=== PATIENT | female | born 1960 | race Two or more races ===

== ENCOUNTER 2019-11-15 07:40 | Outpatient (REF) | payer OTHER, SELFPAY ==
[2019-11-15 08:34] LABS: MANUAL DIFF FLAG NO
[2019-11-15 08:41] LABS: Basophils Percent Auto 0.5 % (0-2); Eosinophils Absolute Auto 0.3 X10*3/uL (0.0-0.4); Eosinophils Percent Auto 5.8 % (0-4); Hematocrit 43.5 % (37-47); Hemoglobin 13.8 g/dl (12.0-16.0); Imm Gran Abs Auto 0.02 X10*3/uL (0.00-0.03); Imm Gran Pct Auto 0.3 % (0.0-0.4); Lymphocytes Absolute Auto 1.7 X10*3/uL (1.2-4.9); Lymphocytes Percent Auto 28.8 % (20-40); Mean Corpuscular HGB Conc 31.7 g/dl (31.0-35.0); Mean Corpuscular Hemoglobin 28.1 pg (27.0-33.0); Mean Corpuscular Volume 88.6 fL (80-98); Mean Platelet Volume 10.6 fL (9.4-12.3); Monocytes Absolute Auto 0.5 X10*3/uL (0.1-1.2); Monocytes Percent Auto 8.9 % (2-11); Neutrophils Absolute Auto 3.2 X10*3/uL (2.0-8.3); Neutrophils Percent Auto 55.7 % (45-73); Platelet Count 254 X10*3/uL (160-400); Red Blood Count 4.91 X10*6/uL (4.20-5.50); Red Cell Distribution Width 14.6 % (11.0-16.0); White Blood Count 5.8 X10*3/uL (4.8-10.8)
[2019-11-15 09:17] LABS: Alanine Aminotransferase 21 U/L (0-31); Alkaline Phosphatase 103 U/L (39-117); Aspartate Amino Transferase 22 U/L (5-31); Bilirubin Total 0.5 mg/dL (0.0-1.0); Blood Urea Nitrogen 11 mg/dL (9-16); Calcium 9.1 mg/dL (8.4-10.2); Cholesterol 215 mg/dL; Estimated Glomerular Filt Rate 58; Glucose Fasting 85 mg/dL (60-99); HDL Cholesterol 70 mg/dL; LDL Cholesterol Calculated 122 mg/dl; Total Protein 6.9 g/dL (6.5-8.0); Triglycerides 115 mg/dL
[2019-11-15 09:29] LABS: Anion Gap 11 (12-20); Carbon Dioxide 28 mmol/L (22-29); Chloride 106 mmol/L (96-108); Potassium 3.7 mmol/l (3.3-5.1); Sodium 141 mmol/L (135-145)
[2019-11-15 09:34] LABS: Vitamin D 25-OH Total 12.4 ng/mL (>30)
== END 2019-11-15 07:41 | disposition home or self-care (01) ==
LOC: HO.LAB 07:40
PROVIDERS: PCP Internal Medicine; Visit Provider Internal Medicine
DX: E55.9 Vitamin D deficiency, unspecified (principal); E78.9 Disorder of lipoprotein metabolism, unspecified; K21.9 Gastro-esophageal reflux disease without esophagitis; J45.20 Mild intermittent asthma, uncomplicated; E66.01 Morbid (severe) obesity due to excess calories; E03.8 Other specified hypothyroidism; M25.511 Pain in right shoulder
CPT/HCPCS: 36415; 80053; 80061; 82306; 84443; 85025

== ENCOUNTER 2020-01-08 13:03 | Outpatient (REF) | payer OTHER, SELFPAY ==
[2020-01-09 03:21] LABS: CT PCR NOT DETECTED (Not Detect.); NG PCR NOT DETECTED (Not Detect.)
[2020-01-09 08:52] LABS: BV Int Neg Control Negative (Negative); BV Int Pos Control Positive (Positive)
== END 2020-01-08 13:04 | disposition home or self-care (01) ==
LOC: HO.LNP 13:03
PROVIDERS: Visit Provider Obstetrics & Gynecology
DX: Z01.419 Encounter for gynecological examination (general) (routine) without abnormal findings (principal)
CPT/HCPCS: 87480; 87491; 87510; 87591; 87660

== ENCOUNTER 2020-02-04 15:00 | Outpatient (REF) | payer OTHER, SELFPAY ==
[2020-02-05 08:04] LABS: BV Int Neg Control Negative (Negative); BV Int Pos Control Positive (Positive)
== END 2020-02-04 15:01 | disposition home or self-care (01) ==
LOC: HO.LAB 15:00
PROVIDERS: PCP Internal Medicine; Visit Provider Obstetrics & Gynecology
DX: A59.9 Trichomoniasis, unspecified (principal)
CPT/HCPCS: 87480; 87510; 87660; 99212

== ENCOUNTER 2020-02-20 08:41 | Outpatient (REF) | payer OTHER, SELFPAY | END 2020-02-20 08:42 | disposition home or self-care (01) | LOC: HO.LAB 08:41 | PROVIDERS: PCP Internal Medicine; Visit Provider Internal Medicine | DX: Z20.828 Contact with and (suspected) exposure to other viral communicable diseases (principal) | CPT/HCPCS: 36415; C9803; U0003 ==

== ENCOUNTER 2020-03-12 14:13 | Emergency (ER) | payer OTHER, SELFPAY ==
[2020-03-12 14:55] VITALS: BP 120/69; PULSE 80; RESP 18; TEMP 36.7; O2SAT 96; BMI 35.8
--- NOTE | 2020-03-12 15:46 | ECG_ITS ---
Test Reason : SOB Blood Pressure : / mmHG Vent. Rate : 076 BPM Atrial Rate : 076 BPM P-R Int : 158 ms QRS Dur : 088 ms QT Int : 402 ms P-R-T Axes : 024 -01 010 degrees QTc Int : 452 ms Normal sinus rhythm with sinus arrhythmia Inferior infarct , age undetermined Abnormal ECG When compared with ECG of 23-AUG-2017 17:42, T wave amplitude has decreased in Lateral leads Referred By: Krish Quarles Electronically Signed By:Mario Sabillon
--- NOTE | 2020-03-12 15:46 | XR_ITS ---
EXAMINATION: XR CHEST CLINICAL INFORMATION: Chest wall pain COMPARISON: Chest radiographs 08/23/2017, 01/23/2017 TECHNIQUE: Portable upright AP view of the chest was obtained. FINDINGS: There is trace disc atelectasis right lateral base. Lungs otherwise clear. There is no pneumothorax, pleural reaction, airspace consolidation, or effusion. The heart is normal in size. The costophrenic sulci are clear. The hilar and mediastinal contours are normal. Again, there are degenerative changes thoracic spine. XR/XR chest 1V IMPRESSION: Disc atelectasis right base. No pneumothorax, airspace consolidation, or effusion.
[2020-03-12 16:22] LABS: INTERNATIONAL NORM RATIO 1.1 (0.9-1.1); Prothrombin Time 12.9 SEC (10.8-13.0)
[2020-03-12 16:24] LABS: Partial Thromboplastin Time 30.3 SEC (24.1-38.0)
[2020-03-12 16:28] LABS: Glucose Urine UA NEG (NEG); Leukocyte Esterase Urine NEG (NEG); Nitrite Urine NEG (NEG); PH 6.5 (5.0-8.0); Specific Gravity - Urine 1.025 (1.005-1.025); Urine Blood NEG (NEG); Urine Ketones NEG (NEG); Urine Protein TRACE MG/DL (NEG-TRACE)
[2020-03-12 16:29] LABS: Appearance Urine HAZY; Color Urine YELLOW
[2020-03-12 16:32] LABS: Hemoglobin 13.3 g/dl (12.0-16.0); Mean Corpuscular HGB Conc 31.7 g/dl (31.0-35.0); Mean Corpuscular Hemoglobin 27.7 pg (27.0-33.0); Mean Corpuscular Volume 87.5 fL (80-98); Mean Platelet Volume 10.4 fL (9.4-12.3); Platelet Count 303 X10*3/uL (160-400); Red Cell Distribution Width 13.3 % (11.0-16.0); White Blood Count 4.9 X10*3/uL (4.8-10.8)
[2020-03-12 16:41] LABS: Mucus Urine 2+ /LPF; RBC Urine 0 /HPF (0); Squamous Epithelial Cell Urine 2+ /LPF; WBC Urine 0 /HPF (0-4)
[2020-03-12 16:41] LABS: Alanine Aminotransferase 28 U/L (0-31); Albumin Level 4.1 g/dL (3.5-5.0); Alkaline Phosphatase 61 U/L (39-117); Anion Gap 13 (12-20); Aspartate Amino Transferase 28 U/L (5-31); Blood Urea Nitrogen 11 mg/dL (9-16); Calcium 9.1 mg/dL (8.4-10.2); Carbon Dioxide 29 mmol/L (22-29); Chloride 105 mmol/L (96-108); Creatinine Clr Calc Pharmacy 80.4; Estimated Glomerular Filt Rate > 60; Glucose Random 88 mg/dL (60-115); Lactate Dehydrogenase 295 U/L (122-220); Potassium 3.7 mmol/l (3.3-5.1); Sodium 143 mmol/L (135-145); Total Protein 7.5 g/dL (6.5-8.0)
[2020-03-12 16:59] LABS: Procalcitonin 0.02 ng/mL
[2020-03-12 17:02] LABS: Atypical Lymph Absolute Manual 0.1 x10*3/uL; Atypical Lymphs Percent Manual 2 % (0-6); Band Neutrophils Percent 1 % (3-5); Eosinophils Percent Manual 1 % (0-4); Lymphocytes Absolute Manual 1.1 X10*3/uL (0.6-4.8); Lymphocytes Percent Manual 23 % (20-40); Monocytes Absolute Manual 0.4 X10*3/uL (0.0-1.2); Monocytes Percent Manual 8 % (2-11); Myelocytes Percent 1 %; Neutrophils Absolute Manual 3.2 X10*3/uL (2.2-7.9); Neutrophils Percent Manual 64 % (45-73)
[2020-03-12 17:03] LABS: Ferritin 596 ng/mL (10-250)
[2020-03-12 17:05] LABS: Large Platelet PRESENT; Platelet Estimate NORMAL (NORMAL); Platelet Morphology Comment NOTED; RBC Morphology NORMAL
[2020-03-12 17:23] LABS: D Dimer 1786 NG/ML
--- NOTE | 2020-03-12 17:26 | ED.GENADULT ---
HPI - General Adult General Chief complaint: General Medical Stated complaint: covid symptoms Time Seen by Provider: 03/12/20 15:46 Source: patient Mode of arrival: ambulatory Limitations: no limitations History of Present Illness HPI narrative: States diagnosed with COVID-19 2 weeks ago at [facility] she had URI symptoms and myalgias that have improved and now has had cough for the past 5 days and associated chest pain and shortness of breath. Onset (ago): day(s) Radiation: non-radiation Pain Consistency: intermittent Exacerbating factors: other (Cough) Associated symptoms: chest pain and cough Treatments prior to arrival: none Related Data Home Medications Medication Instructions Recorded Confirmed albuterol sulfate 90 mcg/actuation 1 inh INHALATION QID 11/22/19 11/22/19 aerosol inhaler diclofenac potassium 50 mg tablet 50 mg PO TID PRN 01/08/20 divalproex 250 mg tablet,delayed mg PO 01/08/20 release galcanezumab-gnlm 120 mg/mL mg SUBCUT 01/08/20 subcutaneous pen injector Previous Rx's Medication Instructions Recorded fluticasone propionate 50 1 spray INTRANASAL DAILY 30 Days 12/20/19 mcg/actuation nasal #15.8 ml spray,suspension metronidazole 500 mg tablet 2,000 mg PO ONCE 1 Days #4 tab 01/13/20 metronidazole 500 mg tablet 500 mg PO BID 7 Days #14 tab 02/05/20 omeprazole 40 mg capsule,delayed 40 mg PO DAILY #90 cap 02/23/20 release albuterol sulfate 2 puff INHALATION Q4-6H PRN 7 Days 03/12/20 #8.5 g azithromycin [Zithromax Z-Ino] 250 mg PO DAILY 5 Days #6 tab 03/12/20 prednisone 40 mg PO DAILY 5 Days #10 tab 03/12/20 Allergies Allergy/AdvReac Type Severity Reaction Status Date / Time No Known Allergies Allergy Verified 02/04/20 15:15 [No Known Allergies*] Review of Systems Review of Systems: Constitutional: No Weight loss, No Fever, No Chills, No Night Sweats, No Fatigue, No Malaise ENT/Mouth: No Hearing loss, No Ear Pain, No Nasal Congestion, No Sinus Pain, No Hoarseness, No sore throat, No Rhinorrhea, No Swallowing Difficulty Eyes: No Eye Pain, No Swelling, No Redness, No Foreign Body, No Discharge, No Vision Changes Cardiovascular: + Chest Pain, No SOB, No Dyspnea on Exertion, No Orthopnea, No Edema, No Palpitations Respiratory: + Cough, No Sputum, No Wheezing, No Dyspnea Gastrointestinal: No Nausea, No Vomiting, No Diarrhea, No Constipation, No abdominal Pain Genitourinary: Negative Musculoskeletal: No joint pain, No Myalgias, No Joint Swelling Skin: No Skin Lesions, No rash Neuro: No Weakness, No Numbness, No Paresthesias, No Loss of Consciousness, No Dizziness, No Headache Psych:No Social Issues Heme/Lymph: No Bruising, No Bleeding,No Lymphadenopathy Endocrine: No Polyuria, No Polydipsia, No Temperature Intolerance Yes all other systems are reviewed and are negative [facility] Past Medical History Medical History Allergic rhinitis Asthma Chronic GERD Headache syndrome Hypothyroidism Lipid disorder Surgical History History of dilatation and curettage History of endometrial biopsy History of tubal ligation Family History Family History Father CVD (cardiovascular disease) Mother Lung cancer Brother Esophageal cancer Sister Throat cancer Social History Social History Alcohol intake: never Smoking Status: Unknown if ever smoked Smoked in Last 30 Days: No Use of substances other than those prescribed or required for medical reasons: No Advance Directives: No Advance Directives Information Provided: No Sexual orientation: Straight/Heterosexual Gender identity: female Physical Exam Vital Signs: Vital Signs: Last Vital Signs Temp 98.6 F 03/12/20 19:25 Pulse 78 03/12/20 19:25 Resp 18 03/12/20 19:25 BP 144/79 H 03/12/20 19:25 Pulse Ox 96 03/12/20 19:25 Body Mass Index 35.8 Reviewed Const: General: cooperative and healthy appearing; No acute distress or intoxicated appearing Nutritional Appearance: average body habitus Orientation/consciousness: patient oriented x3 HENMT: Head: Yes normal to inspection Ears: hearing grossly normal bilaterally Eyes: General: appearance normal, both eyes and all related structures Visual Cowan: normal visual cowan by confrontation Neck: Neck: Yes normal visual inspection, No positive Brudzinski's sign, No positive Kernig's sign and No tender Thyroid: Thyroid normal Chest: Chest palpation & inspection: normal inspection of the chest Resp: Other: Dry bronchial cough Effort & Inspection: normal respiratory effort Auscultation: clear to auscultation bilaterally Cardio: Jugular venous distension: no JVD Rate: regular rate Rhythm: regular rhythm Heart sounds: S1 normal heart sound present and S2 normal heart sound present GI: Inspection: Yes normal to inspection Percussion: Yes normal to percussion Auscultation: normal bowel sounds : General: Yes no CVA tenderness Back/Spine/Pelvis: Back: no CVA tenderness Skin: General skin exam: no rashes or lesions noted Neuro: General: patient oriented x3 Extrem: General: Yes normal to inspection Course Course Course Narrative: Known diagnosis of COVID recently at [facility]. Labs without leukocytosis, electrolytes without significant derangement more consistent with COVID-19 disease D-dimer elevated at 1786 CTA chest PE rule out is negative for acute pulmonary disease findings more consistent with COVID-19. She is hemodynamically stable, 97% on room air the duration of the ED visit ambulatory steady straight gait no hypoxia or shortness of breath. Significant underlying history with asthma hypothyroidism GERD will discharge home with short course antibiotics, prednisone inhaler in clear return instructions. Will monitor her oxygen level home. Will quarantine. Medical Decision Making Lab Data Result diagrams: 03/12/20 16:09 03/12/20 16:10 Labs: Lab Results 03/12/20 03/12/20 03/12/20 Range/Units 16:09 16:09 16:10 WBC 4.9 (4.8-10.8) X10*3/uL RBC 4.80 (4.20-5.50) X10*6/uL Hgb 13.3 (12.0-16.0) g/dl Hct 42.0 (37-47) % MCV 87.5 (80-98) fL MCH 27.7 (27.0-33.0) pg MCHC 31.7 (31.0-35.0) g/dl RDW 13.3 (11.0-16.0) % Plt Count 303 (160-400) X10*3/uL MPV 10.4 (9.4-12.3) fL Immature Gran % (Auto) Cancelled Neut % (Auto) Cancelled Lymph % (Auto) Cancelled Hall % (Auto) Cancelled Eos % (Auto) Cancelled Baso % (Auto) Cancelled Lymph # (Auto) Cancelled Hall # (Auto) Cancelled Eos # (Auto) Cancelled Baso # (Auto) Cancelled Abs Immat Gran (auto) Cancelled Absolute Neuts (auto) Cancelled Absolute Nucleated RBC 0.000 (0.0-0.012) X10*3/uL Nucleated RBC % (auto) 0.0 (0.0-0.2) /100WBC Neutrophils % (Manual) 64 (45-73) % Band Neutrophils % 1 L (3-5) % Lymphocytes % (Manual) 23 (20-40) % Atypical Lymphs % (Man) 2 (0-6) % Monocytes % (Manual) 8 (2-11) % Eosinophils % (Manual) 1 (0-4) % Myelocytes % 1 % Abs Neuts (Manual) 3.2 (2.2-7.9) X10*3/uL Lymphocytes # (Manual) 1.1 (0.6-4.8) X10*3/uL Atyp Lymphs # (Manual) 0.1 x10*3/uL Monocytes # (Manual) 0.4 (0.0-1.2) X10*3/uL Platelet Estimate NORMAL (NORMAL) Large Platelets PRESENT Plt Morphology Comment NOTED RBC Morphology NORMAL PT 12.9 (10.8-13.0) SEC INR 1.1 (0.9-1.1) APTT 30.3 (24.1-38.0) SEC D-Dimer 1786 NG/ML Sodium 143 (135-145) mmol/L Potassium 3.7 (3.3-5.1) mmol/l Chloride 105 (96-108) mmol/L Carbon Dioxide 29 (22-29) mmol/L Anion Gap 13 (12-20) BUN 11 (9-16) mg/dL Creatinine 0.77 (0.5-1.4) mg/dL Estim Creat Clear Calc 80.4 Estimated GFR > 60 Random Glucose 88 (60-115) mg/dL Calcium 9.1 (8.4-10.2) mg/dL Ferritin (10-250) ng/mL Total Bilirubin 1.0 (0.0-1.0) mg/dL AST 28 (5-31) U/L ALT 28 (0-31) U/L Alkaline Phosphatase 61 D (39-117) U/L Lactate Dehydrogenase 295 H (122-220) U/L Troponin I High Sens (<3.5-17.0) ng/L Total Protein 7.5 (6.5-8.0) g/dL Albumin 4.1 (3.5-5.0) g/dL Procalcitonin ng/mL Urine Color Urine Appearance Urine pH (5.0-8.0) Ur Specific [place] (1.005-1.025) Urine Protein (NEG-TRACE) MG/DL Urine Glucose (UA) (NEG) MG/DL Urine Ketones (NEG) MG/DL Urine Blood (NEG) Urine Nitrite (NEG) Ur Leukocyte Esterase (NEG) Urine RBC (0) /HPF Urine WBC (0-4) /HPF Ur Squamous Epith Cells /LPF Urine Bacteria /LPF Urine Mucus /LPF Urine Test (NEGATIVE) 03/12/20 03/12/20 03/12/20 Range/Units 16:10 16:10 16:10 WBC (4.8-10.8) X10*3/uL RBC (4.20-5.50) X10*6/uL Hgb (12.0-16.0) g/dl Hct (37-47) % MCV (80-98) fL MCH (27.0-33.0) pg MCHC (31.0-35.0) g/dl RDW (11.0-16.0) % Plt Count (160-400) X10*3/uL MPV (9.4-12.3) fL Immature Gran % (Auto) Neut % (Auto) Lymph % (Auto) Hall % (Auto) Eos % (Auto) Baso % (Auto) Lymph # (Auto) Hall # (Auto) Eos # (Auto) Baso # (Auto) Abs Immat Gran (auto) Absolute Neuts (auto) Absolute Nucleated RBC (0.0-0.012) X10*3/uL Nucleated RBC % (auto) (0.0-0.2) /100WBC Neutrophils % (Manual) (45-73) % Band Neutrophils % (3-5) % Lymphocytes % (Manual) (20-40) % Atypical Lymphs % (Man) (0-6) % Monocytes % (Manual) (2-11) % Eosinophils % (Manual) (0-4) % Myelocytes % % Abs Neuts (Manual) (2.2-7.9) X10*3/uL Lymphocytes # (Manual) (0.6-4.8) X10*3/uL Atyp Lymphs # (Manual) x10*3/uL Monocytes # (Manual) (0.0-1.2) X10*3/uL Platelet Estimate (NORMAL) Large Platelets Plt Morphology Comment RBC Morphology PT (10.8-13.0) SEC INR (0.9-1.1) APTT (24.1-38.0) SEC D-Dimer NG/ML Sodium (135-145) mmol/L Potassium (3.3-5.1) mmol/l Chloride (96-108) mmol/L Carbon Dioxide (22-29) mmol/L Anion Gap (12-20) BUN (9-16) mg/dL Creatinine (0.5-1.4) mg/dL Estim Creat Clear Calc Estimated GFR Random Glucose (60-115) mg/dL Calcium (8.4-10.2) mg/dL Ferritin 596 H (10-250) ng/mL Total Bilirubin (0.0-1.0) mg/dL AST (5-31) U/L ALT (0-31) U/L Alkaline Phosphatase (39-117) U/L Lactate Dehydrogenase (122-220) U/L Troponin I High Sens < 3.5 (<3.5-17.0) ng/L Total Protein (6.5-8.0) g/dL Albumin (3.5-5.0) g/dL Procalcitonin 0.02 ng/mL Urine Color Urine Appearance Urine pH (5.0-8.0) Ur Specific [place] (1.005-1.025) Urine Protein (NEG-TRACE) MG/DL Urine Glucose (UA) (NEG) MG/DL Urine Ketones (NEG) MG/DL Urine Blood (NEG) Urine Nitrite (NEG) Ur Leukocyte Esterase (NEG) Urine RBC (0) /HPF Urine WBC (0-4) /HPF Ur Squamous Epith Cells /LPF Urine Bacteria /LPF Urine Mucus /LPF Urine Test (NEGATIVE) 03/12/20 Range/Units 16:14 WBC (4.8-10.8) X10*3/uL RBC (4.20-5.50) X10*6/uL Hgb (12.0-16.0) g/dl Hct (37-47) % MCV (80-98) fL MCH (27.0-33.0) pg MCHC (31.0-35.0) g/dl RDW (11.0-16.0) % Plt Count (160-400) X10*3/uL MPV (9.4-12.3) fL Immature Gran % (Auto) Neut % (Auto) Lymph % (Auto) Hall % (Auto) Eos % (Auto) Baso % (Auto) Lymph # (Auto) Hall # (Auto) Eos # (Auto) Baso # (Auto) Abs Immat Gran (auto) Absolute Neuts (auto) Absolute Nucleated RBC (0.0-0.012) X10*3/uL Nucleated RBC % (auto) (0.0-0.2) /100WBC Neutrophils % (Manual) (45-73) % Band Neutrophils % (3-5) % Lymphocytes % (Manual) (20-40) % Atypical Lymphs % (Man) (0-6) % Monocytes % (Manual) (2-11) % Eosinophils % (Manual) (0-4) % Myelocytes % % Abs Neuts (Manual) (2.2-7.9) X10*3/uL Lymphocytes # (Manual) (0.6-4.8) X10*3/uL Atyp Lymphs # (Manual) x10*3/uL Monocytes # (Manual) (0.0-1.2) X10*3/uL Platelet Estimate (NORMAL) Large Platelets Plt Morphology Comment RBC Morphology PT (10.8-13.0) SEC INR (0.9-1.1) APTT (24.1-38.0) SEC D-Dimer NG/ML Sodium (135-145) mmol/L Potassium (3.3-5.1) mmol/l Chloride (96-108) mmol/L Carbon Dioxide (22-29) mmol/L Anion Gap (12-20) BUN (9-16) mg/dL Creatinine (0.5-1.4) mg/dL Estim Creat Clear Calc Estimated GFR Random Glucose (60-115) mg/dL Calcium (8.4-10.2) mg/dL Ferritin (10-250) ng/mL Total Bilirubin (0.0-1.0) mg/dL AST (5-31) U/L ALT (0-31) U/L Alkaline Phosphatase (39-117) U/L Lactate Dehydrogenase (122-220) U/L Troponin I High Sens (<3.5-17.0) ng/L Total Protein (6.5-8.0) g/dL Albumin (3.5-5.0) g/dL Procalcitonin ng/mL Urine Color YELLOW Urine Appearance HAZY Urine pH 6.5 (5.0-8.0) Ur Specific [place] 1.025 (1.005-1.025) Urine Protein TRACE (NEG-TRACE) MG/DL Urine Glucose (UA) NEG (NEG) MG/DL Urine Ketones NEG (NEG) MG/DL Urine Blood NEG (NEG) Urine Nitrite NEG (NEG) Ur Leukocyte Esterase NEG (NEG) Urine RBC 0 (0) /HPF Urine WBC 0 (0-4) /HPF Ur Squamous Epith Cells 2+ /LPF Urine Bacteria NONE /LPF Urine Mucus 2+ /LPF Urine Test NEGATIVE (NEGATIVE) Imaging Data CTA chest PE rule out: Radiologist's impression: [address] Scan ReportSigned Patient: Binta Valentin#: [id number]: 1960Acct:[id number]/Sex: 59 / FADM Date: 03/12/20Loc: [address] Dr: Ordering Physician: Krish Quarles NP Date of Service: 03/12/20 Procedure(s): CT angio chest PE protocol Accession Number(s): [id number] cc: Krish Quarles EMBRYOLOGY TEACHER~ EXAMINATION: CT ANGIOGRAM OF THE CHEST WITH AND WITHOUT CONTRAST (CT PULMONARY ANGIOGRAM FOR PE) CLINICAL INFORMATION: Reason for Exam sob/ elevated D-dimer COMPARISON: Chest radiograph performed same day TECHNIQUE: Prior to contrast administration, noncontrast localization images were obtained. Subsequently, multidetector volumetric imaging was performed from the thoracic inlet to below the diaphragms following the administration of 71.1 mL Omnipaque 350 intravenous contrast. No contrast reaction reported Sagittal, coronal, and MIP oblique sagittal reformatted images were obtained on the CT workstation, uploaded to PACS, and reviewed. This CT examination was performed using dose optimization techniques as appropriate, variously including the following: *Automated exposure control *Adjustment of mA and/or kV according to patient size (this includes techniques or standardized protocols for targeted exams where dose is matched to indication/reason for exam; i.e. extremities or head) *Use of iterative reconstruction technique Total exam dose-length product 370 mGy-cm FINDINGS: QUALITY OF STUDY/CONTRAST BOLUS: Satisfactory. PULMONARY ARTERIES: No central or segmental pulmonary emboli. THORACIC AORTA: No aneurysm or dissection. LUNG: Patchy peripheral groundglass airspace opacities with intermixed reticulation. More dense consolidations are seen along the posterior, dependent portions of the lower lobes at the posterior costophrenic sulci suggestive of superimposed compressive atelectasis. The groundglass opacity burden is small. Trachea is midline and central airways are patent. PLEURA: No pleural effusion or pneumothorax. MEDIASTINUM: Heart size is normal. No pericardial effusion. No mediastinal or hilar adenopathy. Limited views of the thyroid are unremarkable. No evidence of septal bowing or right heart strain. CHEST WALL/AXILLA: No axillary lymphadenopathy. OSSEOUS STRUCTURES: No acute or suspicious osseous abnormality. UPPER ABDOMEN: Unremarkable. No reflux of contrast into the hepatic veins to suggest elevated right heart pressures. CT/CT angio chest PE protocol IMPRESSION: No evidence of pulmonary embolism. Patchy peripheral groundglass opacities with intermixed reticulated and, a subtle and nonspecific finding but suggestive of an acute infectious or inflammatory process. If prior studies available for comparison, an addendum to this report can be issued commenting upon the chronicity of this finding as a chronic interstitial lung disease is also within the differential diagnosis. 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 ECG Data Interpretation: Normal sinus rhythm with sinus arrhythmia Inferior infarct , age undetermined Abnormal ECG When compared with ECG of 11-LARISA-2018 17:42, T wave amplitude has decreased in Lateral leads Discharge Plan Discharge Clinical Impression: Bronchitis, COVID-19, Acute chest wall pain Patient Disposition: Home, Self-Care Instructions: Chest Pain (ED), Acute Bronchitis (ED), COVID-19 (Coronavirus Disease 2019) (ED) Additional Instructions: The CT scan did not show any evidence of blood clot but did show evidence consistent with COVID-19 Your diagnosed COVID-19 there is still some evidence either CAT scan of this infection Drink plenty of fluids Take medication prescribed Continue with social isolation/distancing and quarantine in Do a phone visit with her primary care doctor in the next 3-5 days for well check Return if any concerns or worsening symptoms Thank you Prescriptions: New azithromycin [Zithromax Z-Ino] 250 mg tablet 250 mg PO DAILY 5 Days Qty: 6 RF: 0 prednisone 20 mg tablet 40 mg PO DAILY 5 Days Qty: 10 RF: 0 albuterol sulfate 90 mcg/actuation HFA aerosol inhaler 2 puff inhalation Q4-6H PRN (Reason: shortness of breath or wheezing) 7 Days Qty: 8.5 RF: 0 No Action fluticasone propionate 50 mcg/actuation spray,suspension 1 spray intranasal DAILY 30 Days Qty: 15.8 RF: 4 metronidazole [Flagyl] 500 mg tablet 2,000 mg PO ONCE 1 Days Qty: 4 RF: 0 metronidazole [Flagyl] 500 mg tablet 500 mg PO BID 7 Days Qty: 14 RF: 0 omeprazole 40 mg capsule,delayed release(DR/EC) 40 mg PO DAILY Qty: 90 RF: 0 albuterol sulfate [ProAir HFA] 90 mcg/actuation HFA aerosol inhaler 1 inh inhalation QID RF: 0 diclofenac potassium 50 mg tablet 50 mg PO TID PRNRF: 0 Emgality Pen 120 mg/mL pen injector subcut RF: 0 divalproex 250 mg tablet,delayed release (DR/EC) PO RF: 0 Referrals: Mitra Brown MD [Primary Care Provider] - 1 week (Phone visit) Interventions: ED Discharge Assessment Last Done: 03/12/20 21:14 Discharge Date/Time: 03/12/20 21:28
[2020-03-12 17:40] LABS: UPreg QC Valid YES; Urine Pregnancy NEGATIVE (NEGATIVE)
[2020-03-12] MEDS: iohexoL 350 MG/ML 100 ML INFUS..BTL IV (19:06)
[2020-03-12 19:25] VITALS: BP 144/79; PULSE 78; RESP 18; TEMP 37; O2SAT 96
[2020-03-12 19:59] LABS: Troponin-I High Sensitivity < 3.5 ng/L (<3.5-17.0)
== END 2020-03-12 21:28 | disposition home or self-care (01) ==
PROVIDERS: Nurse Practitioner Primary Care; Emergency Provider Emergency Medicine; PCP Internal Medicine
DX: R07.89 Other chest pain (principal); J20.9 Acute bronchitis, unspecified; Z86.16 Personal history of COVID-19
CPT/HCPCS: 36415; 71045; 71275; 80053; 81001; 81025; 82728; 83615; 84145; 84484; 85007; 85027; 85379; 85610; 85730; 93005; 99284; Q9967

== ENCOUNTER 2020-03-25 10:07 | Outpatient (REF) | payer OTHER, SELFPAY | END 2020-03-25 10:08 | disposition home or self-care (01) | LOC: HO.LAB 10:07 | PROVIDERS: Visit Provider Internal Medicine | DX: Z20.822 Contact with and (suspected) exposure to COVID-19 (principal) | CPT/HCPCS: 36415; C9803; U0003; U0005 ==

== ENCOUNTER 2020-04-17 09:56 | Outpatient (REF) | payer OTHER, SELFPAY ==
--- NOTE | ~2020-04-17 | MM_ITS ---
EXAMINATION: MM SCREENING DIGITAL BREAST TOMOSYNTHESIS, BILATERAL CLINICAL INFORMATION: Screening. Asymptomatic. The lifetime risk of breast cancer based on the Tyrer-Cuzick Model is 5%. COMPARISON: Mammography: 05/30/2016, 05/19/2015 TECHNIQUE: Digital breast tomosynthesis is performed in both the craniocaudal and mediolateral oblique views along with computer-aided detection (CAD). Synthesized 2D images are generated from the tomosynthesis. FINDINGS: There are scattered areas of fibroglandular density (ACR BI-RADS breast composition Category b). There are no significant masses, abnormal calcifications, or other abnormalities. There is low left axillary tail node posterior 3:00 left breast on MLO view. The skin contours are smooth. MM/MM tomosynthesis screening BI IMPRESSION: No mammographic evidence of malignancy. ASSESSMENT: BI-RADS 2: Benign RECOMMENDATION: Routine annual mammography screening. This patient's information was entered into a reminder system with a target due date for their next mammogram.
== END 2020-04-17 09:57 | disposition home or self-care (01) ==
LOC: HO.MAMMO 09:56
PROVIDERS: PCP Internal Medicine; Visit Provider Obstetrics & Gynecology
DX: Z12.31 Encounter for screening mammogram for malignant neoplasm of breast (principal)
CPT/HCPCS: 77063; 77067

== ENCOUNTER → 2020-05-06 14:00 | Outpatient (BNVA) | payer OTHER, SELFPAY | PROVIDERS: PCP Internal Medicine; Visit Provider Internal Medicine Cardiovascular Disease | DX: R00.2 Palpitations (principal) | CPT/HCPCS: 93005; 99202 ==

== ENCOUNTER → 2020-05-07 10:04 | Outpatient (BNVA) | payer OTHER, SELFPAY | PROVIDERS: PCP Internal Medicine; Visit Provider Physician Assistant | DX: M75.80 Other shoulder lesions, unspecified shoulder (principal) | CPT/HCPCS: 20610; 99212; J1040 ==

== ENCOUNTER → 2020-06-19 07:58 | Outpatient (REF) | payer OTHER, SELFPAY ==
--- NOTE | 2020-06-19 08:01 | CA_ITS ---
Transthoracic Echocardiogram Patient (Last, First, Middle): Shireen Valentin, Gender: Female Date of : 1960 Age: 60 Procedure Date: 06/19/2020 Procedure Type: Transthoracic Echocardiogram Location: OP Height: 157.48 cm Weight: 84.37 kg BSA: 1.85 m2 Heart Rate: bpm BP: 110 / 70 mmHg Neurosurgical Nurse: MAGY Referring MD: Mario Sabillon MD Symptoms: R00.2 - Palpitations Study Quality: Fair ECG Rhythm: Sinus Conclusions: - The left ventricular systolic function is normal. The visually estimated ejection fraction is between 60-65%. - No obvious valvular pathology seen on this study. Findings Left Ventricle Normal left ventricular cavity size. There is normal left ventricular wall thickness. The left ventricular systolic function is normal. The visually estimated ejection fraction is between 60-65%. There is no evidence of regional wall motion abnormalities. Diastolic function is normal for age. Right Ventricle Normal right ventricular cavity size and systolic function. Atria The left atrium is normal in size. The right atrium is normal in size. Aortic Valve There is a normal trileaflet aortic valve. There is no aortic valve stenosis. There is no aortic valve regurgitation. Mitral Valve The mitral valve appears normal. There is trace mitral valve regurgitation. There is no mitral valve stenosis. Pulmonic Valve The pulmonic valve was not well visualized. Tricuspid Valve Normal tricuspid valve structure. There is mild tricuspid valve regurgitation. The pulmonary artery systolic pressure is normal. Great Vessels The aortic annulus, sinuses of valsalva, and asc aorta are normal in size. Venous The inferior vena cava is normal in size and collapses greater than 50% with inspiration. Pericardium/Pleural There is no evidence of pericardial effusion. Prior Study Comparison No significant change compared to prior study dated: 09/04/2015. Recommendations, Care & Conclusions No obvious valvular pathology seen on this study. Measurements 2D Linear Measurements IVSd: 1.03 0.6-0.9/0.6-1.0 cm LVIDd: 4.52 3.9-5.3/4.2-5.9 cm LVIDd Index: 2.44 2.4-3.2/2.2-3.1 cm/m2 LVIDs: 2.93 2.0-3.6 cm LVPWd: 1.00 0.7-1.1 cm Ao Root: 2.90 2.1-3.5 cm LA Diam: 3.50 2.7-3.8/3.0-4.0 cm LAIDs Index: 1.89 1.5-2.3 cm/m2 LV Mass: 195.54 67-162/88-224 g LV Mass Index: 105.70 43-95/49-115 g/m2 LVOT Diam: 2.00 3.0+(-)1.3 cm 2D Systolic Function EF 4C: 77.70 >55% EF 2C: 60.80 >55% EF BiP: 70.30 >55% Mitral Valve MV Pk E: 0.46 MV PK A: 0.50 MV Decel Time: 201.00 E/A: 0.90 E'Lateral: 9.48 E'Medial: 7.16 E/E' Med: 6.40 E/E' Lat: 4.80 PHT: 59.00 MVA PHT: 3.73 Decel Bolivar: 2.27 Aortic Valve AoV Pk Lavon: 1.36 AoV Pk Grad: 7.00 LVOT LVOT Pk Lavon: 1.16 LVOT Mn Lavon: 0.76 LVOT VTI: 0.27 LVOT Pk Grad: 5.00 LVOT Mn Grad: 3.00 LVOT Diam: 2.00 LVOT Area: 3.14 Diastolic Function MV Pk E: 0.46 MV Pk A: 0.50 E/A: 0.90 E'Medial: 7.16 E/E' Med: 6.40 E' Laterial: 9.48 E/E' Lat: 4.80 Tricuspid Valve TR Pk Lavon: 1.96 TR Pk Grad: 15.00 RA Press: 3.00 RVSP: 18.00 Great Vessels Aorta Ao Root-2D: 2.90 2.0-3.7 cm Ao Asc: 3.40 2.1-3.4 cm Updated in Other Vendor System with Status of Final Mor Harris MD electronically signed on 06/20/2020 4:15:15 PM with status of Final
== END ==
LOC: HO.CARD 07:58
PROVIDERS: PCP Internal Medicine; Visit Provider Internal Medicine Cardiovascular Disease
DX: R00.2 Palpitations (principal)
CPT/HCPCS: 93306

== ENCOUNTER 2020-10-05 08:48 | Outpatient (REF) | payer OTHER, SELFPAY ==
[2020-10-05 09:46] LABS: Alanine Aminotransferase 22 U/L (0-31); Albumin Level 3.8 g/dL (3.5-5.0); Alkaline Phosphatase 74 U/L (39-117); Anion Gap 10 (12-20); Aspartate Amino Transferase 25 U/L (5-31); Bilirubin Direct < 0.2 mg/dL (0.0-0.5); Bilirubin Total 0.3 mg/dL (0.0-1.0); Blood Urea Nitrogen 14 mg/dL (9-16); Calcium 9.3 mg/dL (8.4-10.2); Carbon Dioxide 28 mmol/L (22-29); Chloride 109 mmol/L (96-108); Cholesterol 231 mg/dL; Estimated Glomerular Filt Rate > 60; Glucose Fasting 88 mg/dL (60-99); HDL Cholesterol 63 mg/dL; LDL Cholesterol Calculated 139 mg/dl; Potassium 3.9 mmol/L (3.3-5.1); Sodium 143 mmol/L (135-145); Total Protein 6.6 g/dL (6.5-8.0); Triglycerides 146 mg/dL
[2020-10-05 09:52] LABS: TSH reflex Free T4 6.64 uIU/mL (0.32-4.0)
== END 2020-10-05 08:49 | disposition home or self-care (01) ==
LOC: HO.LAB 08:48
PROVIDERS: PCP Internal Medicine; Visit Provider Internal Medicine
DX: R94.31 Abnormal electrocardiogram [ECG] [EKG] (principal); R00.2 Palpitations; K21.9 Gastro-esophageal reflux disease without esophagitis; J45.909 Unspecified asthma, uncomplicated; E78.9 Disorder of lipoprotein metabolism, unspecified; E03.9 Hypothyroidism, unspecified; Z91.09 Other allergy status, other than to drugs and biological substances
CPT/HCPCS: 36415; 80053; 80061; 82248; 84439; 84443

== ENCOUNTER 2021-02-15 08:48 | Outpatient (REF) | payer OTHER, SELFPAY ==
[2021-02-15 09:31] LABS: COVID-19 Test Positive (Negative); IDNOW Serial# 16C4AD1C
== END 2021-02-15 08:49 | disposition home or self-care (01) ==
LOC: HO.LAB 08:48
PROVIDERS: Visit Provider Internal Medicine
DX: Z20.822 Contact with and (suspected) exposure to COVID-19 (principal)
CPT/HCPCS: 36415; 87635; C9803

== ENCOUNTER 2021-02-24 10:14 | Outpatient (REF) | payer OTHER, SELFPAY ==
[2021-02-24 11:24] LABS: COVID-19 Test Negative (Negative); IDNOW Serial# 16C4AD1C
== END 2021-02-24 10:15 | disposition home or self-care (01) ==
LOC: HO.LAB 10:14
PROVIDERS: Visit Provider Internal Medicine
DX: Z20.822 Contact with and (suspected) exposure to COVID-19 (principal)
CPT/HCPCS: 87635; C9803

== ENCOUNTER 2021-03-15 13:03 | Outpatient (REF) | payer OTHER, SELFPAY ==
[2021-03-16 07:22] LABS: CT PCR NOT DETECTED (Not Detect.); NG PCR NOT DETECTED (Not Detect.)
[2021-03-16 15:50] LABS: BV Int Neg Control Negative (Negative); BV Int Pos Control Positive (Positive)
[2021-03-17 20:37] LABS: HPV mRNA E6/E7 rflx Not Detected (Not Detected)
== END 2021-03-15 13:04 | disposition home or self-care (01) ==
LOC: HO.LAB 13:03
PROVIDERS: PCP Internal Medicine; Visit Provider Advanced Practice Midwife
DX: Z01.411 Encounter for gynecological examination (general) (routine) with abnormal findings (principal); Z11.51 Encounter for screening for human papillomavirus (HPV); N89.8 Other specified noninflammatory disorders of vagina; R10.2 Pelvic and perineal pain; N90.7 Vulvar cyst; Z20.2 Contact with and (suspected) exposure to infections with a predominantly sexual mode of transmission
CPT/HCPCS: 87480; 87491; 87510; 87591; 87624; 87660; 88142

== ENCOUNTER 2021-04-16 07:58 | Outpatient (REF) | payer OTHER, SELFPAY ==
[2021-04-16 08:46] LABS: Anion Gap 11 (12-20); Blood Urea Nitrogen 14 mg/dL (9-16); Calcium 9.3 mg/dL (8.4-10.2); Carbon Dioxide 30 mmol/L (22-29); Chloride 107 mmol/L (96-108); Cholesterol 214 mg/dL; Estimated Glomerular Filt Rate > 60; Glucose Fasting 93 mg/dL (60-99); HDL Cholesterol 49 mg/dL; LDL Cholesterol Calculated 145 mg/dl; Sodium 144 mmol/L (135-145); Triglycerides 104 mg/dL
[2021-04-16 09:06] LABS: TSH reflex Free T4 1.79 uIU/mL (0.32-4.0)
== END 2021-04-16 07:59 | disposition home or self-care (01) ==
LOC: HO.LAB 07:58
PROVIDERS: PCP Internal Medicine; Visit Provider Internal Medicine
DX: E03.9 Hypothyroidism, unspecified (principal); E78.9 Disorder of lipoprotein metabolism, unspecified; Z91.09 Other allergy status, other than to drugs and biological substances; J45.909 Unspecified asthma, uncomplicated; K21.9 Gastro-esophageal reflux disease without esophagitis; R00.2 Palpitations; R94.31 Abnormal electrocardiogram [ECG] [EKG]
CPT/HCPCS: 36415; 80048; 80061; 84443

== ENCOUNTER 2021-04-19 12:11 | Outpatient (REF) | payer OTHER, SELFPAY ==
--- NOTE | ~2021-04-19 | MM_ITS ---
EXAMINATION: MM SCREENING DIGITAL BREAST TOMOSYNTHESIS, BILATERAL CLINICAL INFORMATION: Screening. Asymptomatic. The lifetime risk of breast cancer based on the Tyrer-Cuzick Model is 5%. COMPARISON: Mammography: 04/17/2020, 05/30/2016, 05/19/2015 TECHNIQUE: Digital breast tomosynthesis is performed in both the craniocaudal and mediolateral oblique views along with computer-aided detection (CAD). Synthesized 2D images are generated from the tomosynthesis. FINDINGS: There are scattered areas of fibroglandular density (ACR BI-RADS breast composition Category b). There are no significant masses, abnormal calcifications, or other abnormalities. Breast tissue composition borders on predominantly fatty. Background stromal and fibroglandular densities are stable. Low left axillary tail node is similar to prior exam. The skin contours are smooth. MM/MM tomosynthesis screening BI IMPRESSION: No mammographic evidence of malignancy. ASSESSMENT: BI-RADS 1: Negative RECOMMENDATION: Routine annual mammography screening. This patient's information was entered into a reminder system with a target due date for their next mammogram.
== END 2021-04-19 12:12 | disposition home or self-care (01) ==
LOC: HO.MAMMO 12:11
PROVIDERS: PCP Internal Medicine; Visit Provider Internal Medicine
DX: Z12.31 Encounter for screening mammogram for malignant neoplasm of breast (principal)
CPT/HCPCS: 77063; 77067

== ENCOUNTER 2021-05-03 12:58 | Outpatient (REF) | payer OTHER, SELFPAY ==
--- NOTE | ~2021-05-03 | US_ITS ---
EXAMINATION: US PELVIS CLINICAL INFORMATION: Pain COMPARISON: Previous pelvic ultrasound December 2016 TECHNIQUE: Ultrasound of the pelvis is performed using both transabdominal and transvaginal transducers along with Doppler. Transvaginal imaging is performed due to inadequate visualization transabdominally. FINDINGS: The uterus is anteverted and measures 12.5 x 4.5 x 5.7 cm in dimension. Endometrial thickness is normal measuring 0.4 cm. There are 2 focal uterine lesions suggestive of fibroids. These measure 1.7 x 1.2 x 1.6 cm in the anterior uterine body adjacent to the endometrium decreased from 2.3 x 1.5 x 1.8 cm and 1.4 x 0.9 x 1.3 cm in the uterine fundus unchanged in size. The ovaries are normal-appearing. The right ovary measures 2.0 x 1.3 x 1.8 cm. The left ovary measures 1.9 x 1.7 x 1.5 cm. There is no fluid in the pelvis. US/US pelvic and transvaginal IMPRESSION: Probable small uterine fibroids. Largest fibroid appears decreased in size from December 2016 exam.
== END 2021-05-03 12:59 | disposition home or self-care (01) ==
LOC: HO.US 12:58
PROVIDERS: PCP Internal Medicine; Visit Provider Advanced Practice Midwife
DX: R10.2 Pelvic and perineal pain (principal)
CPT/HCPCS: 76830; 76856

== ENCOUNTER → 2021-05-07 11:14 | Outpatient (BNVA) | payer OTHER, SELFPAY | PROVIDERS: PCP Internal Medicine; Visit Provider Advanced Practice Midwife | DX: R10.2 Pelvic and perineal pain (principal); Z71.2 Person consulting for explanation of examination or test findings | CPT/HCPCS: Q3014 ==

== ENCOUNTER 2021-05-28 12:34 | Outpatient (REF) | payer OTHER, SELFPAY ==
--- NOTE | ~2021-05-28 | XR_ITS ---
EXAMINATION: XR SHOULDER, LEFT CLINICAL INFORMATION: Pain COMPARISON: None TECHNIQUE: Three views of the left shoulder. FINDINGS: No acute fracture or dislocation. Small tricompartmental marginal osteophytes along the acromioclavicular and glenohumeral joints. Ossific excrescence from the inferior aspect of the clavicle extending towards the coracoid may reflect an old injury to the coracoclavicular ligament. No shoulder separation evident. XR/XR shoulder LT min 2V IMPRESSION: No acute findings. Degenerative changes as described.
== END 2021-05-28 12:35 | disposition home or self-care (01) ==
LOC: HO.HOSX 12:34
PROVIDERS: PCP Internal Medicine; Visit Provider Physician Assistant
DX: M19.012 Primary osteoarthritis, left shoulder (principal)
CPT/HCPCS: 20610; 73030; 99212; J1040

== ENCOUNTER 2021-11-29 13:49 | Outpatient (REF) | payer OTHER, SELFPAY ==
[2021-11-29 16:19] LABS: MANUAL DIFF FLAG NO
[2021-11-29 16:29] LABS: Basophils Absolute Auto 0.1 X10*3/uL (0.0-0.2); Basophils Percent Auto 0.8 % (0-2); Eosinophils Absolute Auto 0.4 X10*3/uL (0.0-0.4); Eosinophils Percent Auto 5.6 % (0-4); Hematocrit 45.4 % (37.0-47.0); Hemoglobin 14.5 g/dl (12.0-16.0); Imm Gran Abs Auto 0.01 X10*3/uL (0.00-0.03); Imm Gran Pct Auto 0.2 % (0.0-0.4); Lymphocytes Absolute Auto 2.3 X10*3/uL (1.2-4.9); Lymphocytes Percent Auto 36.1 % (20-40); Mean Corpuscular HGB Conc 31.9 g/dl (31.0-35.0); Mean Corpuscular Hemoglobin 27.6 pg (27.0-33.0); Mean Corpuscular Volume 86.5 fL (80.0-98.0); Mean Platelet Volume 11.1 fL (9.4-12.3); Monocytes Absolute Auto 0.5 X10*3/uL (0.1-1.2); Monocytes Percent Auto 8.3 % (2-11); Neutrophils Absolute Auto 3.1 x10*3/uL (2.0-8.3); Platelet Count 295 X10*3/uL (160-400); Red Blood Count 5.25 X10*6/uL (4.20-5.50); Red Cell Distribution Width 14.3 % (11.0-16.0); White Blood Count 6.4 X10*3/uL (4.8-10.8)
[2021-11-29 16:34] LABS: Alanine Aminotransferase 13 U/L (0-31); Albumin Level 4.1 g/dL (3.5-5.0); Alkaline Phosphatase 106 U/L (39-117); Anion Gap 14 (12-20); Aspartate Amino Transferase 21 U/L (5-31); Bilirubin Total 0.4 mg/dL (0.0-1.0); Blood Urea Nitrogen 10 mg/dL (9-16); Calcium 9.5 mg/dL (8.4-10.2); Carbon Dioxide 26 mmol/L (22-29); Chloride 104 mmol/L (96-108); Cholesterol 267 mg/dL; Estimated Glomerular Filt Rate > 60; Glucose Fasting 85 mg/dL (60-99); HDL Cholesterol 80 mg/dL; LDL Cholesterol Calculated 157 mg/dl; Potassium 3.9 mmol/L (3.3-5.1); Sodium 140 mmol/L (135-145); Total Protein 7.3 g/dL (6.5-8.0); Triglycerides 153 mg/dL
[2021-11-29 16:54] LABS: TSH reflex Free T4 1.56 uIU/mL (0.32-4.0)
== END 2021-11-29 13:50 | disposition home or self-care (01) ==
LOC: HO.HMGCLDS 13:49
PROVIDERS: Absent Provider Physician Assistant; PCP Internal Medicine; Visit Provider Internal Medicine
DX: M25.50 Pain in unspecified joint (principal); E78.9 Disorder of lipoprotein metabolism, unspecified; E03.9 Hypothyroidism, unspecified; K21.9 Gastro-esophageal reflux disease without esophagitis; J45.909 Unspecified asthma, uncomplicated; Z91.09 Other allergy status, other than to drugs and biological substances
CPT/HCPCS: 36415; 80053; 80061; 84443; 85025

== ENCOUNTER 2022-02-24 14:27 | Outpatient (REF) | payer OTHER, SELFPAY ==
[2022-02-24 14:36] LABS: Appearance Urine Turbid; Color Urine Yellow; Glucose Urine UA Negative (Negative); Leukocyte Esterase Urine Large (3+) (Negative); Nitrite Urine Negative (Negative); PH 6.5 (5.0-9.0); Specific Gravity - Urine 1.015 (1.005-1.025); UMIC TRIGGER UACC YES; Urine Blood Moderate (2+) (Negative); Urine Ketones Negative (Negative); Urine Protein 100 (2+) mg/dL (Neg-Trace)
[2022-02-24 14:38] LABS: Bacteria Urine 4+ (None Seen); Hyaline Casts Urine 0-2 /LPF (0-2); RBC Urine >20 /HPF (0-2); UACC Culture Trigger YES; WBC Urine >50 /HPF (0-5)
== END 2022-02-24 14:28 | disposition home or self-care (01) ==
LOC: HO.LNP 14:27
PROVIDERS: Visit Provider Internal Medicine
DX: N30.90 Cystitis, unspecified without hematuria (principal)
CPT/HCPCS: 81001; 87086; 87088; 87186

== ENCOUNTER 2022-04-18 14:51 | Outpatient (REF) | payer OTHER, SELFPAY ==
[2022-04-18 19:05] LABS: CT PCR NOT DETECTED (Not Detect.); NG PCR NOT DETECTED (Not Detect.)
== END 2022-04-18 14:52 | disposition home or self-care (01) ==
LOC: HO.LNP 14:51
PROVIDERS: PCP Internal Medicine; Visit Provider Advanced Practice Midwife
DX: Z20.2 Contact with and (suspected) exposure to infections with a predominantly sexual mode of transmission (principal)
CPT/HCPCS: 0353U

== ENCOUNTER 2022-05-02 10:06 | Outpatient (REF) | payer OTHER, SELFPAY ==
[2022-05-02 11:38] LABS: MANUAL DIFF FLAG NO
[2022-05-02 11:46] LABS: Basophils Percent Auto 0.7 % (0-2); Eosinophils Absolute Auto 0.3 X10*3/uL (0.0-0.4); Eosinophils Percent Auto 5.2 % (0-4); Hematocrit 44.6 % (37.0-47.0); Hemoglobin 14.1 g/dl (12.0-16.0); Imm Gran Abs Auto 0.01 X10*3/uL (0.00-0.03); Imm Gran Pct Auto 0.2 % (0.0-0.4); Lymphocytes Absolute Auto 1.9 X10*3/uL (1.2-4.9); Lymphocytes Percent Auto 34.8 % (20-40); Mean Corpuscular HGB Conc 31.6 g/dl (31.0-35.0); Mean Corpuscular Hemoglobin 27.8 pg (27.0-33.0); Mean Corpuscular Volume 87.8 fL (80.0-98.0); Mean Platelet Volume 10.7 fL (9.4-12.3); Monocytes Absolute Auto 0.4 X10*3/uL (0.1-1.2); Monocytes Percent Auto 7.2 % (2-11); Neutrophils Absolute Auto 2.8 x10*3/uL (2.0-8.3); Neutrophils Percent Auto 51.9 % (45-73); Platelet Count 281 X10*3/uL (160-400); Red Blood Count 5.08 X10*6/uL (4.20-5.50); Red Cell Distribution Width 13.9 % (11.0-16.0); White Blood Count 5.4 X10*3/uL (4.8-10.8)
[2022-05-02 12:54] LABS: Alanine Aminotransferase 11 U/L (0-31); Albumin Level 3.9 g/dL (3.5-5.0); Alkaline Phosphatase 100 U/L (39-117); Anion Gap 11 (12-20); Aspartate Amino Transferase 18 U/L (5-31); Bilirubin Total 0.4 mg/dL (0.0-1.0); Blood Urea Nitrogen 11 mg/dL (9-16); C Reactive Protein 0.57 mg/dL (< or = 0.50); Calcium 9.1 mg/dL (8.4-10.2); Carbon Dioxide 28 mmol/L (22-29); Chloride 105 mmol/L (96-108); Cholesterol 274 mg/dL; Estimated Glomerular Filt Rate > 60; Glucose Fasting 81 mg/dL (60-99); HDL Cholesterol 72 mg/dL; LDL Cholesterol Calculated 177 mg/dl; Potassium 3.9 mmol/L (3.3-5.1); Rheumatoid Factor < 13.0 IU/mL (<15.0); Sodium 140 mmol/L (135-145); Total Protein 6.7 g/dL (6.5-8.0); Triglycerides 126 mg/dL
[2022-05-05 08:34] LABS: Anti Nuclear Antibody Screen NEGATIVE (NEGATIVE)
[2022-05-05 15:49] LABS: Cyclic Citrullinated Peptide <16 UNITS
== END 2022-05-02 10:07 | disposition home or self-care (01) ==
LOC: HO.HMGCLDS 10:06
PROVIDERS: PCP Internal Medicine; Visit Provider Internal Medicine
DX: E03.9 Hypothyroidism, unspecified (principal); E78.9 Disorder of lipoprotein metabolism, unspecified; J45.909 Unspecified asthma, uncomplicated; M25.50 Pain in unspecified joint
CPT/HCPCS: 36415; 80053; 80061; 84443; 85025; 86038; 86039; 86140; 86200; 86431

== ENCOUNTER → 2022-05-09 09:53 | Outpatient (BNVA) | payer OTHER, SELFPAY | PROVIDERS: PCP Internal Medicine; Visit Provider Obstetrics & Gynecology | DX: L98.9 Disorder of the skin and subcutaneous tissue, unspecified (principal) | CPT/HCPCS: 99212 ==

== ENCOUNTER 2022-05-30 11:07 | Outpatient (REF) | payer OTHER, SELFPAY ==
--- NOTE | ~2022-05-30 | MM_ITS ---
EXAMINATION: MM SCREENING DIGITAL BREAST TOMOSYNTHESIS, BILATERAL CLINICAL INFORMATION: Screening. Asymptomatic. The lifetime risk of breast cancer based on the Tyrer-Cuzick Model is 7.5%. COMPARISON: Mammography: 04/19/2021 and studies dating back to 12/07/2010. TECHNIQUE: Digital breast tomosynthesis is performed in both the craniocaudal and mediolateral oblique views along with computer-aided detection (CAD). Synthesized 2D images are generated from the tomosynthesis. FINDINGS: There are scattered areas of fibroglandular density (ACR BI-RADS breast composition Category b). There is a stable parenchymal pattern of the right breast without new abnormal dominant mass or suspicious grouping of microcalcifications. Within the medial aspect of the left breast approximately 7 cm from the nipple there are 2 adjacent rounded densities one of which appears to have a fatty cleft and likely representing intramammary lymph nodes. These were not visualized previously and a spot compression film with possible ultrasound is recommended. MM/MM tomosynthesis screening BI IMPRESSION: Left breast densities for further evaluation. ASSESSMENT: BI-RADS 0: Incomplete - Need Additional Imaging Evaluation RECOMMENDATION: 1. Additional views of the left breast. 2. Targeted ultrasound if warranted after review of the additional views. 3. Radiology department staff will contact the patient for additional imaging.
== END 2022-05-30 11:08 | disposition home or self-care (01) ==
LOC: HO.MAMMO 11:07
PROVIDERS: PCP Internal Medicine; Visit Provider Internal Medicine
DX: Z12.31 Encounter for screening mammogram for malignant neoplasm of breast (principal)
CPT/HCPCS: 77063; 77067

== ENCOUNTER 2022-06-03 13:46 | Outpatient (REF) | payer OTHER, SELFPAY ==
--- NOTE | ~2022-06-03 | MM_ITS ---
EXAMINATION: MM DIAGNOSTIC DIGITAL BREAST TOMOSYNTHESIS, LEFT US TARGETED BREAST, LEFT CLINICAL INFORMATION: Left breast densities. COMPARISON: Mammography: 05/30/2022 and studies dating back to 05/19/2015. TECHNIQUE: Digital breast tomosynthesis is performed. 2-D images are generated from the tomosynthesis. The following views are obtained: Spot compression 90 degree mediolateral view and spot compression craniocaudal view as well as spot compression 90 degree mediolateral view. FINDINGS: There are scattered areas of fibroglandular density (ACR BI-RADS breast composition Category b). The spot compression views of the 2 rounded adjacent circumscribed densities medial left breast appear to have fatty clefts present. Ultrasound evaluation about the medial aspect of the left breast did not demonstrate any abnormal cystic or solid masses. No region of abnormal distal sound shadowing was appreciated. Results are discussed with the patient at time of visit. MM/MM tomosynthesis added views L IMPRESSION: Left breast circumscribed densities correspond to intramammary lymph nodes. ASSESSMENT: BI-RADS 2: Benign. RECOMMENDATION: Routine annual mammography screening due in 12 months. This patient's information was entered into a reminder system with a target due date for their next mammogram.
== END 2022-06-03 13:47 | disposition home or self-care (01) ==
LOC: HO.MAMMO 13:46
PROVIDERS: PCP Internal Medicine; Visit Provider Internal Medicine
DX: R92.2 Inconclusive mammogram (principal)
CPT/HCPCS: 76642; 77061; 77065

== ENCOUNTER 2022-08-26 08:00 | Outpatient (AMB) | payer OTHER, SELFPAY ==
--- NOTE | 2022-08-26 08:03 | MHC.OFFWIV ---
Intake Vital Signs 08/26/22 08:07 BP 104/70 Blood Pressure Location Rt brachial Position Sitting Pulse 70 Pulse Source Pulse Oximeter Pulse Oximetry (%) 97 Oxygen Delivery Method Room Air Intake Visit Reasons: EP Back pain (lobby) Intake Note: Patient here for right lower back pain that radiates to the front. She has been seen at ED and here before for the same thing and was given a muscle relaxer which helped but the pain comes and goes and this time its just very bad and has been painful for about 1 week. Patient Tobacco Use Status: Never used Tobacco Allergies No Known Allergies [No Known Allergies*] Allergy (Verified 08/26/22 08:07) Do you need a note to return to daycare/school/sports/work: No HPI HPI Comments History of Present Illness Details This 62-year-old female history significant for hyperlipidemia, osteoarthritis, major depressive disorder, chronic pain, hypothyroidism, asthma, and GERD who presents to the office today for sick visit. Patient reports a history of chronic low back pain for which she has had multiple x-rays and ultrasounds. She reports the pain has been worse over the past 1 week. She states it is located in the right side of her low back with radiation into her right groin. She denies any pain radiating down her legs or numbness/weakness/paresthesias. She denies any fevers or chills. She denies any bowel/bladder incontinence or retention. Patient states she has been prescribed muscle relaxers in the past, which seemed to help the pain. She denies any recent trauma or injury to the back. [facility] Medical History (Updated 06/20/22 @ 13:09 by Yessi Delaney MD) Allergic rhinitis Asthma Chronic GERD Headache syndrome Hypothyroidism Lipid disorder Surgical History History of dilatation and curettage History of endometrial biopsy History of tubal ligation Family History Father CVD (cardiovascular disease) Mother Lung cancer Brother Esophageal cancer Mental health disorder Sister Throat cancer Social History (Updated 05/02/22 @ 09:53 by Yessi Delaney MD) Household Members: None Household Members Other:: single, 4 children, retired Housing: Apartment Alcohol intake: never Patient Tobacco Use Status: Never used Tobacco e-Cigarette/Vaping Use: Never Used Current occupational status: employed 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 Sexual orientation: Straight/Heterosexual Gender identity: Female Cognitive needs: No Hearing needs: No Vision needs: Yes Physical Exam Vital Signs: Last Vital Signs Pulse 70 08/26/22 08:07 BP 104/70 08/26/22 08:07 Pulse Ox 97 08/26/22 08:07 Oxygen Delivery Method Room Air 08/26/22 08:07 Const General: cooperative, healthy appearing and no acute distress Orientation/consciousness: patient oriented x3 HEENT Head: Yes normal to inspection Ears: hearing grossly normal bilaterally General nose exam: Normal external nose present Face and sinus: Yes normal facial exam Resp Effort & Inspection: normal respiratory effort Auscultation: clear to auscultation bilaterally Cardio Rate: regular rate Rhythm: regular rhythm Heart sounds: no gallops, no murmurs and no rubs Back/Spine/Pelvis Other: Mild tenderness to palpation over the right paraspinal musculature. Negative straight leg raise bilaterally. No mid line tenderness to palpation. No ecchymosis or signs of injury/trauma. Neuro General: patient oriented x3 Cranial nerves: Yes CN's II-XII intact bilaterally Motor exam (neuro): 5/5 motor strength present throughout Deep tendon reflexes (DTR's): Right patellar reflex intensity grade: 2+, Left patellar reflex intensity grade: 2+, Right ankle reflex intensity grade: 2+ and Left ankle reflex intensity grade: 2+ Assessment & Plan Assessment & Plan (1) Back pain: Code(s): M54.9 - Dorsalgia, unspecified Plan: This is a 62 year old female with acute on chronic low back pain. History and physical most consistent with a lumbosacral sprain/strain. Patient requesting MRI of the lumbar spine but she was made aware that this cannot be done in this office. X-ray of the lumbar spine was ordered, but unfortunately, x-ray is out of order. Patient was advised to proceed to the emergency room for imaging of her low back, but she declines at this time. Patient has no red flag symptoms concerning for cauda equina syndrome or infection/malignancy. PO methocarbamol 500 mg 3 times daily as needed. Patient instructed to follow-up with her primary care physician to schedule an outpatient MRI. Patient verbalizes understanding and she is in agreement with the plan. Orders: Orders XR lumbar spine 2-3V Today M54.9 - Dorsalgia, unspecified Medications: New methocarbamol 500 mg PO TID PRN 10 tabs 0RF musle spasm Coding Level of Care Code Est Pt Level 3 (12681) Diagnoses Back pain M54.9
[2022-08-26 08:07] VITALS: BP 104/70; PULSE 70; O2SAT 97
== END 2022-08-26 08:37 | disposition home or self-care (01) ==
PROVIDERS: PCP Internal Medicine; Visit Provider Physician Assistant Medical
DX: M54.9 Dorsalgia, unspecified (principal)
CPT/HCPCS: 99213

== ENCOUNTER 2022-09-07 09:26 | Outpatient (REF) | payer OTHER, SELFPAY ==
--- NOTE | ~2022-09-07 | XR_ITS ---
EXAMINATION: XR LUMBOSACRAL SPINE CLINICAL INFORMATION: Reason for Exam M54.9 - Dorsalgia, unspecified COMPARISON: Lumbar spine radiographs 05/02/2016 TECHNIQUE: 3 views of the lumbar spine FINDINGS: 5 nonrib-bearing lumbar-type vertebral bodies. 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 Vertebral body heights are maintained. Alignment is maintained. Mild multilevel degenerative disc disease with degenerative endplate spurring and facet arthropathy similar to prior. Paravertebral soft tissues are unremarkable. XR/XR lumbar spine 2-3V IMPRESSION: 1. Mild multilevel degenerative disc disease with degenerative endplate spurring and facet arthropathy similar to prior.
== END 2022-09-07 09:27 | disposition home or self-care (01) ==
LOC: HO.HMGCX 09:26
PROVIDERS: PCP Internal Medicine; Visit Provider Physician Assistant Medical
DX: M54.9 Dorsalgia, unspecified (principal)
CPT/HCPCS: 72100

== ENCOUNTER 2022-09-16 10:21 | Outpatient (AMB) | payer OTHER, SELFPAY ==
[2022-09-16 10:25] VITALS: BP 100/68; PULSE 69; O2SAT 99; BMI 32.2
--- NOTE | 2022-09-16 10:25 | A.OFFPC_ITS ---
Vital Signs 09/16/22 10:25 Height 5 ft 2 in Weight 176 lb 2 oz BMI 32.2 BP 100/68 Blood Pressure Location Lt brachial Position Sitting Pulse 69 Pulse Source Pulse Oximeter Pulse Oximetry (%) 99 Oxygen Delivery Method Room Air Intake Visit Reasons: Dizziness Intake Note: pt started with dizziness 3 weeks ago in the day time and the night time Allergies No Known Allergies [No Known Allergies*] Allergy (Verified 09/16/22 10:28) Medication List - Last Reconciled 09/16/22 by Yessi Delaney MD albuterol sulfate 90 mcg/actuation 2 puffs inhalation Q4-6H PRN 7 days albuterol sulfate 0.63 mg (3 mL) inhalation QID PRN 30 days cetirizine 10 mg PO DAILY 90 days citalopram 30 mg PO DAILY compr.stocking,knee,long,large As directed fluticasone propionate 50 mcg/actuation 1 spray intranasal DAILY 30 days ibuprofen 600 mg PO Q8H PRN 7 days levothyroxine 50 mcg PO DAILY 90 days lidocaine 5% 1 patch topical DAILY meloxicam 15 mg PO DAILY omeprazole 40 mg PO DAILY 90 days ondansetron HCl 4 mg PO ONCE PRN 30 days rimegepant (Nurtec ODT) 75 mg PO DAILY PRN rosuvastatin (Crestor) 20 mg PO DAILY trazodone 50 mg PO BEDTIME [Updraft machine As directed] Tobacco use date assessed: 09/16/22 Dental Screening Dental Screen Date: 09/16/22 Did you have a dental visit in the last 12 months?: Yes Did you have a dental problem in the last 6 months where you did not have access to dental care?: No Was dental information given to patient?: Patient has dentist HPI Dizziness HPI Details Pt c/o 2 episodes of dizziness in the last 3 weeks when walking. Pt denies N/V/WRIGHT, change in balance weakness or numbness in extremities chest pain shortness of breath palpitations. Patient has been taking citalopram and trazodone for chronic depression and follows up with psychiatrist. [facility] Medical History (Updated 09/16/22 @ 11:09 by Yessi Delaney MD) Allergic rhinitis Asthma Chronic GERD Headache syndrome Hypothyroidism Lipid disorder Surgical History History of dilatation and curettage History of endometrial biopsy History of tubal ligation Family History Father CVD (cardiovascular disease) Mother Lung cancer Brother Esophageal cancer Mental health disorder Sister Throat cancer Social History (Updated 05/02/22 @ 09:53 by Yessi Delaney MD) Household Members: None Household Members Other:: single, 4 children, retired Housing: Apartment Alcohol intake: never Patient Tobacco Use Status: Never used Tobacco e-Cigarette/Vaping Use: Never Used Current occupational status: employed 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 Kole Sarkar, Jennifer Brown, Christian Bautista and colleagues, with an educational harjit from [employer]. Review of Systems Const All systems reviewed & are unremarkable except as noted in HPI and below Reports no additional complaints Eyes Reports no additional complaints ENT Reports no additional complaints Card Reports no additional complaints Resp Reports no additional complaints GI Reports no additional complaints Reports no additional complaints Physical exam (Primary Care) Vital Signs: Last Vital Signs Pulse 69 09/16/22 10:25 BP 100/68 09/16/22 10:25 Pulse Ox 99 09/16/22 10:25 Oxygen Delivery Method Room Air 09/16/22 10:25 BMI result Body Mass Index 32.2 Tobacco/Smoking Status: Tobacco use Status Tobacco use date assessed 09/16/22 09/16/22 10:31 Patient Tobacco Use Status Never used Tobacco 09/16/22 10:31 e-Cigarette/Vaping Use Never Used 09/16/22 10:31 Thrive Assessment: Date of Thrive Assessment Date Thrive assessed 05/02/22 09/16/22 10:31 Const General: no acute distress HENMT Head: Yes normal to inspection Face and sinus: Yes normal facial exam Eyes General: appearance normal, both eyes and all related structures Neck Neck: Yes no lymphadenopathy and Yes supple Resp Effort & Inspection: normal respiratory effort Auscultation: clear to auscultation bilaterally Cardio Rhythm: regular rhythm Heart sounds: S1 normal heart sound present and S2 normal heart sound present GI Inspection: Yes normal to inspection Palpation (GI): Soft to palpation Percussion: Yes normal to percussion Auscultation: normal bowel sounds Assessment and Plan Assessment & Plan (1) Hyperlipidemia: Code(s): E78.5 - Hyperlipidemia, unspecified Plan: Continue Crestor check lipid profile today (2) Dizziness: Code(s): R42 - Dizziness and giddiness Plan: Check blood work today and supportive care including increasing fluid intake discussed with the patient. If the symptoms persist patient will be referred for vestibular therapy (3) Depression, major, recurrent, moderate: Comment: f/u with psychiatry Code(s): F33.1 - Major depressive disorder, recurrent, moderate (4) Hypothyroidism: Code(s): E03.9 - Hypothyroidism, unspecified Plan: Continue levothyroxine (5) Positive colorectal cancer screening using Cologuard test: Comment: 05/05, patient refused colonoscopy. She is aware of possibility of undetected colon cancer Code(s): R19.5 - Other fecal abnormalities Plan: Patient was advised to have a colonoscopy but she declined Orders: Orders Vitamin B12 and Folate Today E78.5 - Hyperlipidemia, unspecified, R42 - Dizziness and giddiness Comprehensive Kidder. Panel Fast Today E78.5 - Hyperlipidemia, unspecified, R42 - Dizziness and giddiness IRON PROFILE Today E78.5 - Hyperlipidemia, unspecified, R42 - Dizziness and giddiness Lipid Panel Today E78.5 - Hyperlipidemia, unspecified, R42 - Dizziness and giddiness Complete Blood Count Auto Diff Today E78.5 - Hyperlipidemia, unspecified, R42 - Dizziness and giddiness Medications: Discontinued ondansetron HCl Discontinued Reason: Doctor's Order 4 mg PO ONCE 30 days PRN 30 tabs 0RF nausea and vomiting R11.0 - Nausea meloxicam Discontinued Reason: Doctor's Order 15 mg PO DAILY 14 tabs 0RF Coding Level of Care Code Est Pt Level 4 (90476) Diagnoses Hyperlipidemia E78.5 Dizziness R42 Depression, major, recurrent, moderate F33.1 Hypothyroidism E03.9 Positive colorectal cancer screening using Cologuard test R19.5
== END 2022-09-16 11:10 | disposition home or self-care (01) ==
PROVIDERS: PCP Internal Medicine; Visit Provider Internal Medicine
DX: E78.5 Hyperlipidemia, unspecified (principal); R42 Dizziness and giddiness; F33.1 Major depressive disorder, recurrent, moderate; E03.9 Hypothyroidism, unspecified; R19.5 Other fecal abnormalities
CPT/HCPCS: 99214

== ENCOUNTER 2022-09-16 11:01 | Outpatient (REF) | payer OTHER, SELFPAY ==
[2022-09-16 13:16] LABS: MANUAL DIFF FLAG NO
[2022-09-16 13:31] LABS: Basophils Absolute Auto 0.1 X10*3/uL (0.0-0.2); Basophils Percent Auto 0.8 % (0-2); Eosinophils Absolute Auto 0.4 X10*3/uL (0.0-0.4); Eosinophils Percent Auto 7.1 % (0-4); Hematocrit 42.8 % (37.0-47.0); Hemoglobin 13.6 g/dl (12.0-16.0); Imm Gran Abs Auto 0.01 X10*3/uL (0.00-0.03); Imm Gran Pct Auto 0.2 % (0.0-0.4); Lymphocytes Absolute Auto 2.2 X10*3/uL (1.2-4.9); Lymphocytes Percent Auto 35.5 % (20-40); Mean Corpuscular HGB Conc 31.8 g/dl (31.0-35.0); Mean Corpuscular Hemoglobin 27.1 pg (27.0-33.0); Mean Corpuscular Volume 85.4 fL (80.0-98.0); Mean Platelet Volume 10.9 fL (9.4-12.3); Monocytes Absolute Auto 0.4 X10*3/uL (0.1-1.2); Monocytes Percent Auto 7.2 % (2-11); Neutrophils Percent Auto 49.2 % (45-73); Platelet Count 248 X10*3/uL (160-400); Red Blood Count 5.01 X10*6/uL (4.20-5.50); Red Cell Distribution Width 13.8 % (11.0-16.0); White Blood Count 6.1 X10*3/uL (4.8-10.8)
[2022-09-16 15:11] LABS: Alanine Aminotransferase 13 U/L (0-31); Alkaline Phosphatase 99 U/L (39-117); Anion Gap 13 (12-20); Aspartate Amino Transferase 18 U/L (5-31); Bilirubin Total 0.5 mg/dL (0.0-1.0); Blood Urea Nitrogen 12 mg/dL (9-16); Calcium 9.6 mg/dL (8.4-10.2); Carbon Dioxide 25 mmol/L (22-29); Chloride 108 mmol/L (96-108); Cholesterol 252 mg/dL; Estimated Glomerular Filt Rate > 60; Glucose Fasting 81 mg/dL (60-99); HDL Cholesterol 78 mg/dL; Iron 75 mcg/dL (30-160); LDL Cholesterol Calculated 147 mg/dl; Percent Iron Saturation 26 % (15-50); Potassium 4.1 mmol/L (3.3-5.1); Sodium 142 mmol/L (135-145); Total Iron Binding Capacity 289 mcg/dL (228-428); Total Protein 7.2 g/dL (6.5-8.0); Triglycerides 135 mg/dL; Unsaturated Iron Binding 214 ug/dL
[2022-09-16 15:51] LABS: Folate 14.3 ng/mL (> or = 4.0); Vitamin B12 486 pg/mL (200-900)
== END 2022-09-16 11:02 | disposition home or self-care (01) ==
LOC: HO.HMGCLDS 11:01
PROVIDERS: PCP Internal Medicine; Visit Provider Internal Medicine
DX: E78.5 Hyperlipidemia, unspecified (principal); R42 Dizziness and giddiness
CPT/HCPCS: 36415; 80053; 80061; 82607; 82746; 83540; 85025

== ENCOUNTER 2022-09-30 10:24 | Outpatient (REF) | payer OTHER, SELFPAY ==
--- NOTE | ~2022-09-30 | XR_ITS ---
EXAMINATION: XR HIP, LEFT CLINICAL INFORMATION: Pain in right hip COMPARISON: Same-day right hip TECHNIQUE: Two views of the left hip. FINDINGS: There is a small ossific or calcific density adjacent to the inferior aspect of the acetabulum which could represent a labral tear. Otherwise, the bones appear intact. Alignment is anatomic. Minimal narrowing of the cartilage space of the hip. Enthesophytes are noted along the greater trochanter. XR/XR hip LT min 2V IMPRESSION: Small ossific or calcific density adjacent to the inferior aspect of the acetabulum which could represent a labral tear. MRI scan could be obtained for further evaluation.
--- NOTE | ~2022-09-30 | XR_ITS ---
EXAMINATION: XR HIP, RIGHT CLINICAL INFORMATION: Pain in right hip COMPARISON: Same-day left hip, AP pelvis 09/01/2017 FINDINGS: There is a small ossific or calcific density adjacent to the inferior aspect of the acetabulum which could represent a labral tear. Otherwise, the bones appear intact. Alignment is anatomic. The cartilage space is maintained. Degenerative hypertrophic changes along the greater and lesser trochanteric regions. XR/XR hip RT min 2V IMPRESSION: Small ossific or calcific density adjacent to the inferior aspect of the acetabulum which could represent a labral tear. MRI scan could be obtained for further evaluation.
== END 2022-09-30 10:25 | disposition home or self-care (01) ==
LOC: HO.XRAY 10:24
PROVIDERS: PCP Internal Medicine; Visit Provider Student in an Organized Health Care Education/Training Program
DX: M25.551 Pain in right hip (principal); M25.552 Pain in left hip
CPT/HCPCS: 73502; 99202

== ENCOUNTER 2022-09-30 10:24 | Outpatient (AMB) | payer OTHER, SELFPAY ==
--- NOTE | 2022-09-30 10:26 | MHC.OFFVIS ---
Intake Vital Signs 09/30/22 10:27 Height 5 ft 2 in Weight 176 lb 2.389 oz BMI 32.2 BP 106/72 Blood Pressure Location Rt brachial Position Sitting Pulse 72 Pulse Source Pulse Oximeter Temp 97 F Temp Source Skin Pulse Oximetry (%) 96 Oxygen Delivery Method Room Air Intake Visit Reasons: Joint Pain Intake Note: New patient visit for joint pain. c/o right lower back pain radiating down leg, generalized back pain, dizziness (hx anemia) Mechanic Sound Technician Required: Yes Mechanic Sound Technician Language: Road Passenger Firer Name: Chevy [id number] Information Interpreted: clinical only Accompanied by: Self / Same As Patient Allergies No Known Allergies [No Known Allergies*] Allergy (Verified 09/30/22 10:36) Medication List - Last Reconciled 09/30/22 by Les Torrez MD albuterol sulfate 90 mcg/actuation 2 puffs inhalation Q4-6H PRN 7 days albuterol sulfate 0.63 mg (3 mL) inhalation QID PRN 30 days cetirizine 10 mg PO DAILY 90 days citalopram 30 mg PO DAILY compr.stocking,knee,long,large As directed diclofenac sodium 25 mg PO BID fluticasone propionate 50 mcg/actuation 1 spray intranasal DAILY 30 days ibuprofen 600 mg PO Q8H PRN 7 days levothyroxine 50 mcg PO DAILY 90 days lidocaine 5% 1 patch topical DAILY methocarbamol 500 mg PO TID PRN omeprazole 40 mg PO DAILY 90 days rosuvastatin (Crestor) 20 mg PO DAILY trazodone 50 mg PO BEDTIME [Updraft machine As directed] HPI HPI Comments History of Present Illness Details This is a 62-year-old female who presents for evaluation of multiple joint pain. Patient states that has had arthritis for years. She has had bilateral shoulder pain before and she received 2 cortisone injections in her right shoulder and 1 injection in her left shoulder years ago which helped. Majority of her pain is in her lower back radiating to her right buttock and her right groin. Pain is intermittent and she cannot think of any particular activity that makes it better or worse. She went to the emergency room once and she was prescribed a muscle relaxant which provides minimal relief. She does not recall ever being evaluated by Pain Management [facility] Medical History Allergic rhinitis Asthma Chronic GERD Headache syndrome Hypothyroidism Lipid disorder Surgical History History of dilatation and curettage History of endometrial biopsy History of tubal ligation Family History Father CVD (cardiovascular disease) Arthritis Mother Lung cancer Brother Esophageal cancer Mental health disorder Sister Throat cancer Social History Household Members: None Housing: Apartment Alcohol intake: current Alcohol intake frequency: holidays/special occasions only Patient Tobacco Use Status: Never used Tobacco e-Cigarette/Vaping Use: Never Used Current occupational 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 Sexual orientation: Straight/Heterosexual Gender identity: Female Cognitive needs: No Hearing needs: No Vision needs: Yes Female Reproductive History Menstrual Total pregnancies: 8 Ab spontaneous: 4 Review of Systems Const Reports headache(s) ENT Reports dysphagia, Reports dizziness, Reports dry mouth, Reports headache(s) and Reports hoarseness Card Reports dyspnea Resp Reports cough and Reports dyspnea GI Reports dysphagia and Reports heartburn Musc Reports arthralgias and Reports stiffness Skin/Breast Reports alopecia and Reports unusual bruising Neuro Reports dizziness, Reports headache(s) and Reports memory loss Psych Reports abnormal sleep pattern, Reports anxiety, Reports depression and Reports memory loss Physical Exam Vital Signs: Last Vital Signs Temp 97 F 09/30/22 10:27 Pulse 72 09/30/22 10:27 BP 106/72 09/30/22 10:27 Pulse Ox 96 09/30/22 10:27 Oxygen Delivery Method Room Air 09/30/22 10:27 BMI result Body Mass Index 32.2 Const General: cooperative, healthy appearing and comfortable Nutritional Appearance: obese Orientation/consciousness: patient oriented x3 Limitations: no limitations HEENT Head: Yes normocephalic and Yes atraumatic Mouth: moist mucous membranes Resp Effort & Inspection: normal respiratory effort and able to speak in complete sentences Back/Spine/Pelvis Other: Negative straight leg raise test bilaterally Negative Spurling's test bilaterally Neuro General: patient oriented x3 Extrem Other: Mild osteoarthritic changes of both hands with no active synovitis Normal range of motion of both shoulders Positive empty can test bilaterally Flexion adduction and external rotation of right hip produces groin pain Bilateral trochanteric bursa area tenderness Negative Peter's test bilaterally Assessment & Plan Assessment & Plan (1) Pain in right hip: Code(s): M25.551 - Pain in right hip Plan: This is a 62-year-old female who presents for evaluation of multiple joint pain. Clinical picture consistent with degenerative arthritis. She is having lower back pain radiating to the right buttock, she also has right groin pain. A lumbar spine MRI was ordered by her PCP and was approved, waiting for scheduling. Will order bilateral hip x-rays to evaluate for hip arthritis. Potentially there is a component of trochanteric bursitis. Follow-up in 6 weeks Plan I spent 30 minutes reviewing patient's chart, evaluating patient, ordering diagnostic workup, counseling patient and documenting in the chart Orders: Orders XR hip LT min 2V Today M25.552 - Pain in left hip XR hip RT min 2V Today M25.551 - Pain in right hip Coding Level of Care Code New Pt Level 3 (48003) Diagnoses Pain in right hip M25.551
[2022-09-30 10:27] VITALS: BP 106/72; PULSE 72; TEMP 36.1; O2SAT 96; BMI 32.2
== END 2022-09-30 11:24 | disposition home or self-care (01) ==
PROVIDERS: PCP Internal Medicine; Visit Provider Student in an Organized Health Care Education/Training Program
DX: M25.551 Pain in right hip (principal)
CPT/HCPCS: 99203

== ENCOUNTER 2022-10-31 07:56 | Outpatient (RCR) | payer OTHER, SELFPAY ==
[2022-10-31 07:59] VITALS: BP 112/76
--- NOTE | 2022-10-31 09:22 | MHC.PT.EP ---
[facility] [place] Office [place] Office [place] Office [address] Rebeca Schmidt [address] [phone] F: [phone] F: [phone] F: [phone] F: [phone] Physical Therapy Plan of Care Date of Evaluation: Date of Surgery: Diagnosis: benign positional vertigo Assessment: 62 y/o female referred to PT with benign positional vertigo. Reports insidious onset of dizziness a few months ago and describes dizziness as 'my head spins and everything is blurry and she will see lights; this will last a few minutes and occurs randomly. SHe cannot associate dizziness with any activity or position. She also has a hx of migraines. Examination shows normal VBI tests, (+) saccades and smooth pursuits which caused dizziness and poor visual tracking noted, normal static balance, 23/24 DGI balance (use of rail on stairs), and (-) for BPPV in Chris Hallpike and Roll Test positions. Distributed smooth pursuits and saccades exercises for HEP. REcommend pt f/u with MD regarding dizziness and testing negative for BPPV and hypofunction. ?whether dizziness is migraine-induced. PT not indicated and pt will f/u with PCP Frequency and Duration: The patient will be seen Short Term Goals: [employer] Goals: PT not indicated, pt will f/u josiah MCCLOUD Treatment Plan: Modalities to reduce pain, spasms and effusion. Manual therapy to restore motion and function. Therapeutic exercise to improve strength and flexibility. Neuromuscular re-education for posture and balance. Therapeutic activities to return to functional activities of daily living. Electronically signed by: Maggie Lewis PT Please sign and return to therapist. Thank you for your referral.
--- NOTE | 2022-10-31 09:28 | MHC.PT.DC ---
[facility] [place] Office [place] Office [place] Office [address] Rebeca Schmidt [address] [phone] F: [phone] F: [phone] F: [phone] F: [phone] Physical Therapy Discharge Report Diagnosis: benign positional vertigo Date of Surgery: Date of Evaluation: 10/31/22 Date of Discharge: 10/31/22 Treatments to Date: 1 Cancellations to Date: 0 No Shows to Date: 0 Discharge Status: Recommend MD Follow-up Discharge Summary: Recommend pt f/u with MD regarding dizziness and testing negative for BPPV and vestibularhypofunction. ?whether dizziness is migraine-induced. PT not indicated and pt will f/u with PCP Electronically signed by: Maggie Lewis PT Please sign and return to therapist. Thank you for your referral.
== END 2022-10-31 09:28 | disposition home or self-care (01) ==
LOC: HO.PTCHIC 07:56
PROVIDERS: PCP Internal Medicine; Visit Provider Internal Medicine
DX: H81.10 Benign paroxysmal vertigo, unspecified ear (principal)
CPT/HCPCS: 97112; 97162

== ENCOUNTER 2022-11-07 09:51 | Outpatient (REF) | payer OTHER, SELFPAY ==
--- NOTE | ~2022-11-07 | MR_ITS ---
EXAMINATION: MR LUMBAR SPINE WITHOUT CONTRAST CLINICAL INFORMATION: Lumbar spondyloarthropathy. Sciatica. COMPARISON: None available. TECHNIQUE: MRI of the lumbar spine was obtained using routine sequences without contrast. FINDINGS: Minimal left convex curvature of the lumbar spine. Otherwise, normal anatomic alignment. Mild to moderate degenerative disc disease from L3-S1. Mild degenerative disc disease at all additional levels. Associated mixed Modic type discogenic endplate changes including mild Modic type I discogenic edema from L2-S1. No additional suspicious marrow edema. The conus medullaris terminates at the level of L1-L2. The distal spinal cord is normal in appearance. Mild edema within the subcutaneous tissues of the back from the levels of L3-L5. No additional significant abnormalities of the paraspinal musculature. Limited evaluation of the intra-abdominal structures without significant abnormalities. The abdominal aorta is of normal contour and caliber. AXIAL SPINAL LEVELS: T12-L1: Normal annular contour. There is mild left and no right facet joint arthropathy. There is no neural foraminal stenosis. There is no spinal canal stenosis. L1-L2: Normal annular contour. There is mild bilateral facet joint arthropathy. There is no no neural foraminal stenosis. There is no spinal canal stenosis. L2-L3: Shallow diffuse disc bulge. There is mild bilateral facet joint arthropathy. There is mild left and no right neural foraminal stenosis. There is no spinal canal stenosis. L3-L4: Mild diffuse disc bulge. There is moderate bilateral facet joint arthropathy. There is mild to moderate bilateral neural foraminal stenosis. There is narrowing of the subarticular zones with no overt spinal canal stenosis centrally. L4-L5: Mild diffuse disc bulge with superimposed small right subarticular disc protrusion. There is moderate bilateral facet joint arthropathy. There is moderate left and mild right neural foraminal stenosis. There is stenosis of the subarticular zones with no overt spinal canal stenosis centrally. L5-S1: Mild diffuse disc bulge with superimposed right foraminal disc protrusion. There is moderate bilateral facet joint arthropathy. There is moderate right worse than left neural foraminal stenosis. There is narrowing of the right-sided radicular zone with no overt spinal canal stenosis centrally. MR/MR lumbar spine wo con IMPRESSION: Mild to moderate multilevel degenerative spondyloarthropathy of the lumbar spine as described in detail above. Most notably, there are narrowings/stenoses of the subarticular zones from L3-S1. Moderate neural foraminal stenoses from L3-S1. No overt spinal canal stenosis centrally.
--- NOTE | ~2022-11-07 | MR_ITS ---
EXAMINATION: MR HIP WITHOUT CONTRAST, RIGHT CLINICAL INFORMATION: Unspecified hip pain. COMPARISON: None available. TECHNIQUE: MRI of the right hip was obtained using routine sequences on a high-field strength magnet. FINDINGS: BONE/JOINTS: Right hip alignment is anatomic. No evidence of fracture, avascular necrosis or stress injury. No evidence of significant arthropathy. No suspicious marrow signal changes. No bony hypertrophy or subcortical cyst/edema in the anterior femoral head and neck junction. Alpha angle measures 42 degrees. (Measured at the anterior 3 o'clock position on the oblique sagittal sequence). Acetabular depth is within normal limits. LABRUM: No displaced labral tear is identified. MUSCLES/TENDONS: Gluteus minimus is intact. Question mild gluteus medius tendinosis. Mild right common hamstring tendinosis. Iliopsoas tendon is intact. No muscle tear. JOINT FLUID/BURSA: No significant greater trochanteric or iliopsoas bursitis. No significant joint effusion. INTRAPELVIS STRUCTURES: Subcentimeter groin lymph nodes. No acute findings in the pelvis. Urinary bladder appears unremarkable. Small low signal focus in the uterus, could represent a fibroid. On the coronal sequence of the pelvis, there is normal left hip alignment. SI joints and symphysis pubis are intact.. MR/MR hip RT wo con IMPRESSION: 1. No evidence of acute osseous abnormality. No evidence of acute fracture, avascular necrosis or stress injury. 2. Mild common hamstring tendinosis. Question mild gluteus medius medius tendinosis. 3. No displaced labral tear is identified. 4. Additional findings and details as above.
== END 2022-11-07 09:52 | disposition home or self-care (01) ==
LOC: HO.MRI 09:51
PROVIDERS: PCP Internal Medicine; Visit Provider Internal Medicine
DX: M54.30 Sciatica, unspecified side (principal); S73.191A Other sprain of right hip, initial encounter
CPT/HCPCS: 72148; 73721

== ENCOUNTER 2022-11-11 10:14 | Outpatient (AMB) | payer OTHER, SELFPAY ==
--- NOTE | 2022-11-11 10:15 | A.OFFVIS_ITS ---
Intake Vital Signs 11/11/22 10:24 Height 5 ft 2 in Weight 177 lb 0.499 oz BMI 32.4 BP 108/76 Blood Pressure Location Rt brachial Position Sitting Pulse 96 Pulse Source Pulse Oximeter Temp 97.1 F Temp Source Skin Pulse Oximetry (%) 97 Oxygen Delivery Method Room Air Intake Visit Reasons: LBP Intake Note: Patient here to discuss test results. Restaurant Area Director Required: No Accompanied by: Self / Same As Patient Allergies No Known Allergies [No Known Allergies*] Allergy (Verified 11/11/22 10:23) Medication List - Last Reconciled 11/11/22 by Les Torrez MD albuterol sulfate 90 mcg/actuation 2 puffs inhalation Q4-6H PRN albuterol sulfate 0.63 mg (3 mL) inhalation QID PRN 30 days cetirizine 10 mg PO DAILY 90 days citalopram 30 mg PO DAILY compr.stocking,knee,long,large As directed diclofenac potassium 50 mg PO BID fluticasone propionate 50 mcg/actuation 1 spray intranasal DAILY 30 days ibuprofen 600 mg PO Q8H PRN 7 days levothyroxine 50 mcg PO DAILY 90 days lidocaine 5% 1 patch topical DAILY omeprazole 40 mg PO DAILY 90 days rosuvastatin (Crestor) 20 mg PO DAILY trazodone 50 mg PO BEDTIME [Updraft machine As directed] HPI HPI Comments History of Present Illness Details Patient returns for follow-up after completion of her diagnostic workup. Continues to have pain in her lower back radiating down her right buttock, right thigh and pain on the outside of her right hip when she lies on her side. Initial history: This is a 62-year-old female who presents for evaluation of multiple joint pain. Patient states that has had arthritis for years. She has had bilateral shoulder pain before and she received 2 cortisone injections in her right shoulder and 1 injection in her left shoulder years ago which helped. Majority of her pain is in her lower back radiating to her right buttock and her right groin. Pain is intermittent and she cannot think of any particular activity that makes it better or worse. She went to the emergency room once and she was prescribed a muscle relaxant which provides minimal relief. She does not recall ever being evaluated by Pain Management [facility] Medical History Lipid disorder Hypothyroidism Allergic rhinitis Asthma Chronic GERD Headache syndrome Surgical History History of dilatation and curettage History of endometrial biopsy History of tubal ligation Family History Father CVD (cardiovascular disease) Arthritis Mother Lung cancer Brother Esophageal cancer Mental health disorder Sister Throat cancer Social History Household Members: None Housing: Apartment Alcohol intake: current Alcohol intake frequency: holidays/special occasions only Patient Tobacco Use Status: Never used Tobacco e-Cigarette/Vaping Use: Never Used 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 occupational 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 Sexual orientation: Straight/Heterosexual Gender identity: Female Cognitive needs: No Hearing needs: No Vision needs: Yes Review of Systems Musc Reports back pain, Reports arthralgias and Reports stiffness Physical Exam Vital Signs: Last Vital Signs Temp 97.1 F 11/11/22 10:24 Pulse 96 11/11/22 10:24 BP 108/76 11/11/22 10:24 Pulse Ox 97 11/11/22 10:24 Oxygen Delivery Method Room Air 11/11/22 10:24 BMI result Body Mass Index 32.4 Const General: cooperative, healthy appearing and comfortable Nutritional Appearance: obese Orientation/consciousness: patient oriented x3 Limitations: no limitations HEENT Head: Yes normocephalic and Yes atraumatic Mouth: moist mucous membranes Resp Effort & Inspection: normal respiratory effort and able to speak in complete sentences Back/Spine/Pelvis Other: Negative straight leg raise test bilaterally Negative Spurling's test bilaterally Neuro General: patient oriented x3 Extrem Other: Mild osteoarthritic changes of both hands with no active synovitis Normal range of motion of both shoulders Positive straight leg raise test bilaterally Bilateral trochanteric bursa area tenderness Negative Peter's test bilaterally Assessment & Plan Assessment & Plan (1) Sciatica: Code(s): M54.30 - Sciatica, unspecified side Qualifiers: Laterality: right Qualified Code(s): M54.31 - Sciatica, right side Plan: L-spine MRI shows degenerative changes. Will refer patient to pain management. (2) Trochanteric bursitis of both hips: Code(s): M70.61 - Trochanteric bursitis, right hip; M70.62 - Trochanteric bursitis, left hip Plan: Symptoms worse on the right side, hip MRI shows mild common hamstring tendinosis. Patient states that she does not have time for formal physical therapy, does not want a steroid injection today. She will do some exercises at home Follow-up p.r.n. Plan I spent 26 minutes reviewing patient's chart, evaluating patient, placing orders, counseling patient and documenting in the chart Orders: Referrals Pain Management Referral M54.30 - Sciatica, unspecified side Coding Level of Care Code Est Pt Level 4 (63257) Diagnoses Sciatica of right side M54.31 Laterality: right Trochanteric bursitis of both hips M70.61; M70.62
[2022-11-11 10:24] VITALS: BP 108/76; PULSE 96; TEMP 36.2; O2SAT 97; BMI 32.4
== END 2022-11-11 10:35 | disposition home or self-care (01) ==
PROVIDERS: PCP Internal Medicine; Visit Provider Student in an Organized Health Care Education/Training Program
DX: M54.31 Sciatica, right side (principal); M70.61 Trochanteric bursitis, right hip; M70.62 Trochanteric bursitis, left hip
CPT/HCPCS: 99214

== ENCOUNTER → 2022-11-11 10:14 | Outpatient (BNVA) | payer OTHER, SELFPAY | PROVIDERS: PCP Internal Medicine; Visit Provider Student in an Organized Health Care Education/Training Program | DX: M54.31 Sciatica, right side (principal); M70.61 Trochanteric bursitis, right hip; M70.62 Trochanteric bursitis, left hip | CPT/HCPCS: 99212 ==

== ENCOUNTER 2022-11-14 10:35 | Outpatient (REF) | payer OTHER, SELFPAY ==
--- NOTE | ~2022-11-14 | XR_ITS ---
EXAMINATION: XR SACROILIAC JOINTS CLINICAL INFORMATION: Pain for couple months COMPARISON: None available. TECHNIQUE: 3 views of the sacroiliac joints FINDINGS: Degenerative changes lower lumbar spine. Pedicles are intact. SI joints within normal limits. No significant hip joint narrowings. Visualized sacrum and coccyx appear intact. Tubal ligation clips. XR/XR sacroiliac joint min 3V IMPRESSION: Unremarkable sacroiliac joints.
== END 2022-11-14 10:36 | disposition home or self-care (01) ==
LOC: HO.XRAY 10:35
PROVIDERS: PCP Internal Medicine; Visit Provider Nurse Practitioner Family
DX: M53.3 Sacrococcygeal disorders, not elsewhere classified (principal)
CPT/HCPCS: 72202

== ENCOUNTER 2022-11-14 10:35 | Outpatient (AMB) | payer OTHER, SELFPAY ==
--- NOTE | 2022-11-14 10:39 | A.OFFVIS_ITS ---
Intake Vital Signs 11/14/22 10:44 Height 5 ft 2 in Weight 174 lb 6 oz BMI 31.9 BP 123/73 Blood Pressure Location Rt brachial Position Sitting Pulse 70 Pulse Source Pulse Oximeter Pulse Oximetry (%) 98 Oxygen Delivery Method Room Air Intake Visit Reasons: Sciatica, unspecified side Allergies No Known Allergies [No Known Allergies*] Allergy (Verified 11/14/22 10:43) HPI Sciatica, unspecified side HPI Details Patient is a pleasant 62 years old female with history of multiple joint pain and arthritis, presents today for initial evaluation of lower back pain with radicular symptoms. Denies any recent or past trauma, injury or falls. Back pain radiates across her waist and into right buttock and anterolateral thigh with occasional radiation to right groin as well. Walking and changing positions increase her pain significantly but every movement hurts as well. I could not reproduce her right groin or radicular pain today with provocative exams. SLR testing was negative bilaterally. She does have significant tend erness in bilateral greater trochanteric bilaterally (right>left) and right sacroiliac joint areas. Denies previous spine surgery or injections. Pain affects her daily activities, functioning, sleep, social activities, mood and quality of life. Denies any fever, abdominal or groin pain, bladder or bowel dysfunciton or saddle anesthesia. We discussed interventional treatments for both areas. Patient became anxious and states she does not do well with injections. She reports good pain relief with previous shoulder cortisone injections at Orthopedic office with the use of skin spray anesthetic and did well. Location Lower back radiates down right hip down to lower buttock Duration Chronic pain, multiple joint pain Characteristics of symptom or complaint Aching, stabbing, shooting, numbness Aggravating or associated factors Everything movements, bending, walking, changing positions, standing Relieving factors Rest, heating pad, lidocaine patch, Tylenol, NSAIDs Treatment PT- 2 years ago, no improvement PFSH Medical History Lipid disorder Hypothyroidism Allergic rhinitis Asthma Chronic GERD Headache syndrome Surgical History History of dilatation and curettage History of endometrial biopsy History of tubal ligation Family History Father CVD (cardiovascular disease) Arthritis Mother Lung cancer Brother Esophageal cancer Mental health disorder Sister Throat cancer Social History Household Members: None Housing: Apartment Alcohol intake: current Alcohol intake frequency: holidays/special occasions only Patient Tobacco Use Status: Never used Tobacco e-Cigarette/Vaping Use: Never Used 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 Alert and oriented. Mood and affect appropriate. Follows and participates in conversation appropriately. Respiratory effort is unlabored. No cough. Able to transition from sit to stand unassisted. Ambulates with bilaterally normal heel strike and toe off. Back/Spine/Pelvis Other: Lumbar ROM limited with lumbar extension reproducing significant pain. Lumbar flexion causes mild pain. Can flex forward to 70-75degrees and extend to 5-10 degrees before experiencing lumbar pain. Demonstrates 5/5 strength of quadriceps bilaterally as well as flexion/dorsiflexion of bilateral feet against resistance. 2+ pedal pulses bilaterally. Seated straight leg rise with dorsiflexion negative bilaterally. +2 patellar and achilles reflexes bilaterally. Facet loading test positive bilaterally. Brandon sign, Earl?s, Gaenslen, Pelvic compression and Stinchfield tests are positive on the right. No groin pain with I/E hip rotations. Mild to moderate TTP at bilateral GTB, right>left. Valsalva maneuver negative. Cervical Spine: cervical ROM normal and No Cervical spine tenderness Thoracic/Lumbar Spine: thoracic and lumbar spine normal to inspection, Thoracic/lumbar spine scar(s), Lasegue's sign negative, straight leg raise negative bilaterally, pain with thoraco-lumbar ROM, paraspinal muscle tenderness, No thoracic spinal tenderness and lumbar spinal tenderness at L4 and at L5 Results Reviewed Results Reviewed: MR LUMBAR SPINE WITHOUT CONTRAST 11/07/22 CLINICAL INFORMATION: Lumbar spondyloarthropathy. Sciatica. COMPARISON: None available. TECHNIQUE: MRI of the lumbar spine was obtained using routine sequences without contrast. FINDINGS: Minimal left convex curvature of the lumbar spine. Otherwise, normal anatomic alignment. Mild to moderate degenerative disc disease from L3-S1. Mild degenerative disc disease at all additional levels. Associated mixed Modic type discogenic endplate changes including mild Modic type I discogenic edema from L2-S1. No additional suspicious marrow edema. The conus medullaris terminates at the level of L1-L2. The distal spinal cord is normal in appearance. Mild edema within the subcutaneous tissues of the back from the levels of L3-L5. No additional significant abnormalities of the paraspinal musculature. Limited evaluation of the intra-abdominal structures without significant abnormalities. The abdominal aorta is of normal contour and caliber. AXIAL SPINAL LEVELS: T12-L1: Normal annular contour. There is mild left and no right facet joint arthropathy. There is no neural foraminal stenosis. There is no spinal canal stenosis. L1-L2: Normal annular contour. There is mild bilateral facet joint arthropathy. There is no no neural foraminal stenosis. There is no spinal canal stenosis. L2-L3: Shallow diffuse disc bulge. There is mild bilateral facet joint arthropathy. There is mild left and no right neural foraminal stenosis. There is no spinal canal stenosis. L3-L4: Mild diffuse disc bulge. There is moderate bilateral facet joint arthropathy. There is mild to moderate bilateral neural foraminal stenosis. There is narrowing of the subarticular zones with no overt spinal canal stenosis centrally. L4-L5: Mild diffuse disc bulge with superimposed small right subarticular disc protrusion. There is moderate bilateral facet joint arthropathy. There is moderate left and mild right neural foraminal stenosis. There is stenosis of the subarticular zones with no overt spinal canal stenosis centrally. L5-S1: Mild diffuse disc bulge with superimposed right foraminal disc protrusion. There is moderate bilateral facet joint arthropathy. There is moderate right worse than left neural foraminal stenosis. There is narrowing of the right-sided radicular zone with no overt spinal canal stenosis centrally. IMPRESSION: Mild to moderate multilevel degenerative spondyloarthropathy of the lumbar spine as described in detail above. Most notably, there are narrowings/stenoses of the subarticular zones from L3-S1. Moderate neural foraminal stenoses from L3-S1. No overt spinal canal stenosis centrally. XR LUMBOSACRAL SPINE 09/07/22 CLINICAL INFORMATION: Reason for Exam M54.9 - Dorsalgia, unspecified COMPARISON: Lumbar spine radiographs 05/02/2016 TECHNIQUE: 3 views of the lumbar spine FINDINGS: 5 nonrib-bearing lumbar-type vertebral bodies. 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 Vertebral body heights are maintained. Alignment is maintained. Mild multilevel degenerative disc disease with degenerative endplate spurring and facet arthropathy similar to prior. Paravertebral soft tissues are unremarkable. IMPRESSION: 1. Mild multilevel degenerative disc disease with degenerative endplate spurring and facet arthropathy similar to prior. Assessment & Plan Assessment & Plan (1) Sacroiliac joint disease: Code(s): M53.3 - Sacrococcygeal disorders, not elsewhere classified (2) Trochanteric bursitis of both hips: Code(s): M70.61 - Trochanteric bursitis, right hip; M70.62 - Trochanteric bursitis, left hip (3) Back pain: Code(s): M54.9 - Dorsalgia, unspecified (4) Lumbar degenerative disc disease: Code(s): M51.36 - Other intervertebral disc degeneration, lumbar region Plan Patient's presentation of pain today consists with facetogenic, sacroiliac joint and trochanteric bursitis. We discussed interventional treatments for both areas. Patient became anxious and states she does not do well with injections. She reports good pain relief with previous shoulder cortisone injections at Orthopedic office with the use of skin spray anesthetic and did well. I have informed patient that we can utilize skin spray with injections too, as well as oral Ativan prior to injections to confirm pain generators for potential longer relief modalities. Patient reports she was interested in medical management for her pain generators. Unfortunately, we do not offer opioid prescribing at this time. Patient will undergo sacroiliac joint xray and notify our office if she is interested to proceed with Diagnostic Right SIJ injections with local and fluoroscopy. Will consider therapeutic GTB injections too if patient is interested. All questions and concerns have been answered and patient agreed with the plan. Follow up as needed. Orders: Orders XR sacroiliac joint min 3V Today M53.3 - Sacrococcygeal disorders, not elsewhere classified Coding Level of Care Code New Pt Level 4 (63883) Diagnoses Sacroiliac joint disease M53.3 Trochanteric bursitis of both hips M70.61; M70.62 Back pain M54.9 Lumbar degenerative disc disease M51.36
[2022-11-14 10:44] VITALS: BP 123/73; PULSE 70; O2SAT 98; BMI 31.9
== END 2022-11-14 11:13 | disposition home or self-care (01) ==
PROVIDERS: PCP Internal Medicine; Visit Provider Nurse Practitioner Family
DX: M53.3 Sacrococcygeal disorders, not elsewhere classified (principal); M70.61 Trochanteric bursitis, right hip; M70.62 Trochanteric bursitis, left hip; M54.9 Dorsalgia, unspecified; M51.36 Other intervertebral disc degeneration, lumbar region
CPT/HCPCS: 99204

== ENCOUNTER 2023-04-25 13:32 | Outpatient (AMB) | payer OTHER, SELFPAY ==
--- NOTE | 2023-04-25 13:34 | MHC.OFFVIS ---
Intake Vital Signs 04/25/23 13:35 Height 5 ft 2 in Weight 179 lb BMI 32.7 BP 108/72 Intake Visit Reasons: Annual Coloring Room Man Required: No Airplane Cabin Attendant: Airplane Cabin Attendant Present (Maribell) Allergies No Known Allergies [No Known Allergies*] Allergy (Verified 04/25/23 13:35) HPI HPI Comments History of Present Illness Details She is a postmenopausal woman presenting for her annual geriatric physical therapist examination. She is doing well with concerns: occaional throbbing discomfort in the pelvic area along with feeling like her menses is coming. Also concerned about occasional external irritation she experienced. Attempting to eat a healthy diet with calcium and vitamin D and stays active with exercise. Currently not currently sexually active. Denies any vaginal dryness or irritation. STI testing offered; she accepts. Last pap smear; 2020. Last mammogram; 2022. Colonoscopy is UTD. Denies any family history of breast, ovarian or colon cancer. [facility] Medical History Lipid disorder Hypothyroidism Allergic rhinitis Asthma Chronic GERD Headache syndrome Surgical History History of dilatation and curettage History of endometrial biopsy History of tubal ligation Family History Father CVD (cardiovascular disease) Arthritis Mother Lung cancer Brother Esophageal cancer Mental health disorder Sister Throat cancer Social History Household Members: None Housing: Apartment Alcohol intake: current Alcohol intake frequency: holidays/special occasions only Patient Tobacco Use Status: Never used Tobacco e-Cigarette/Vaping Use: Never Used Current occupational 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 Sexual orientation: Straight/Heterosexual Gender identity: Female Cognitive needs: No Hearing needs: No Vision needs: Yes Female Reproductive History Menstrual control method: permanent sterilization Permanent Sterilization: BTL Total pregnancies: 8 Full term: 4 Number of Living Children: 4 Ab spontaneous: 4 Date of last pap smear: 03/15/21 (neg pap and hpv) Date of Mammogram: 05/30/22 (Birad 0) Review of Systems Const All systems reviewed & are unremarkable except as noted in HPI and below Reports as per HPI Eyes Reports no additional complaints ENT Reports no additional complaints Card Reports no additional complaints Resp Reports no additional complaints GI Reports as per HPI and Reports no additional complaints Reports as per HPI Musc Reports no additional complaints Skin/Breast Reports as per HPI Neuro Reports no additional complaints Psych Reports no additional complaints Endo Reports no additional complaints Kevin/Lymph Reports no additional complaints Aller/Immun Reports no additional complaints Physical Exam Vital Signs: Last Vital Signs BP 108/72 04/25/23 13:35 BMI result Body Mass Index 32.7 Const General: cooperative, healthy appearing, no acute distress, well developed and alert Orientation/consciousness: patient oriented x3 HEENT Head: Yes normal to inspection Eyes General: appearance normal, both eyes and all related structures Neck Neck: Yes normal visual inspection Thyroid: Thyroid normal Chest Chest palpation & inspection: normal inspection of the chest and other (no puckering, dimpling, peau de orange, retraction, discharge, masses) Breast/axilla inspection: normal inspection of the breasts Breast/axilla palpation: normal palpation of the breasts Resp Effort & Inspection: normal respiratory effort GI Inspection: Yes normal to inspection Palpation (GI): Soft to palpation Rectal Exam - Female: deferred General: Yes bladder normal to palpation External Female Exam: normal external appearance and normal appearance of the urethra Speculum Exam - Vagina: normal appearance of the vagina, normal palpation, normal vaginal discharge and vagina atrophic Speculum Exam - Cervix: normal appearance of the cervix and normal palpation Bimanual exam- vagina & uterus: normal bimanual exam, normal palpation, uterine size normal, bladder normal to palpation, normal palpation and non-tender Bimanual Exam- Adnexa, other: no masses Skin General skin exam: no rashes or lesions noted Rashes: no rashes Neuro General: patient oriented x3 Cognition (Neuro): normal cognition Extrem General: Yes normal to inspection Psych Attitude: cooperative Thought process: Normal thought process present Assessment & Plan Assessment & Plan (1) Encounter for well woman exam with routine gynecological exam: Code(s): Z01.419 - Encounter for gynecological examination (general) (routine) without abnormal findings (2) Pelvic pain: Code(s): R10.2 - Pelvic and perineal pain Plan Discussed: Current recommendations for pap smears per ASCCP guidelines. Breast awareness, periodic self breast exams and yearly mammogram. Maintain a healthy lifestyle, well balanced diet including Calcium 1,200 mg and Vitamin D 600 IU daily, and routine exercise. Plan ultrasound cultures today follow up in person for ultrasound results. Reviewed vulvar skin care and menopause age. Contact the office with any postmenopausal bleeding. Patient verbalizes understanding and agrees to the plan of care. She was given opportunity to ask questions and all questions were answered to the best of my ability. RTO in 1 year for annual geriatric physical therapist exam. This note is constructed using voice recognition software. While every effort has been made to ensure accuracy, marketing database consultant errors may have been included. Orders: Orders CT NG by PCR Today R10.2 - Pelvic and perineal pain US pelvic and transvaginal Today R10.2 - Pelvic and perineal pain Bacterial Vaginosis Panel Today R10.2 - Pelvic and perineal pain Coding Level of Care Code Est Pt Prev Care 40-64y(57750) Diagnoses Encounter for well woman exam with routine gynecological exam Z01.419 Pelvic pain R10.2
[2023-04-25 13:35] VITALS: BP 108/72; BMI 32.7
== END 2023-04-25 14:10 | disposition home or self-care (01) ==
LOC: HO.HWS 13:32
PROVIDERS: PCP Internal Medicine; Visit Provider Advanced Practice Midwife
DX: Z01.419 Encounter for gynecological examination (general) (routine) without abnormal findings (principal); R10.2 Pelvic and perineal pain
CPT/HCPCS: 99396

== ENCOUNTER 2023-04-25 13:32 | Outpatient (REF) | payer OTHER, SELFPAY | END 2023-04-25 13:33 | disposition home or self-care (01) | LOC: HO.LNP 13:32 | PROVIDERS: PCP Internal Medicine; Visit Provider Advanced Practice Midwife | DX: Z01.419 Encounter for gynecological examination (general) (routine) without abnormal findings (principal); R10.2 Pelvic and perineal pain | CPT/HCPCS: 99396 ==

== ENCOUNTER 2023-04-25 14:00 | Outpatient (REF) | payer OTHER, SELFPAY ==
[2023-04-26 06:01] LABS: CT PCR NOT DETECTED (Not Detect.); NG PCR NOT DETECTED (Not Detect.)
[2023-04-26 13:35] LABS: BV Int Neg Control Negative (Negative); BV Int Pos Control Positive (Positive)
== END 2023-04-25 14:01 | disposition home or self-care (01) ==
LOC: HO.LAB 14:00
PROVIDERS: Visit Provider Advanced Practice Midwife
DX: R10.2 Pelvic and perineal pain (principal)
CPT/HCPCS: 0353U; 87480; 87510; 87660

== ENCOUNTER 2023-04-26 08:37 | Outpatient (AMB) | payer OTHER, SELFPAY ==
--- NOTE | 2023-04-26 08:37 | AM.OFFWIN_ITS ---
Intake Vital Signs 04/26/23 08:38 Height 5 ft 2 in Weight 179 lb BMI 32.7 BP 110/80 Blood Pressure Location Lt brachial Position Sitting Pulse 78 Pulse Source Pulse Oximeter Temp 97.5 F Temp Source Temporal Artery Scan Pulse Oximetry (%) 98 Oxygen Delivery Method Room Air Intake Visit Reasons: EP Back/RT leg pain Intake Note: pt is here today for back rt leg pain started 2 days ago Patient Tobacco Use Status: Never used Tobacco Allergies No Known Allergies [No Known Allergies*] Allergy (Verified 04/26/23 08:38) Medication List - Last Reconciled 04/26/23 by DANIELLE Barrientos albuterol sulfate 90 mcg/actuation 2 puffs inhalation Q4-6H PRN albuterol sulfate 0.63 mg (3 mL) inhalation QID PRN 30 days cetirizine 10 mg PO DAILY 90 days citalopram 30 mg PO DAILY compr.stocking,knee,long,large As directed cyclobenzaprine 5 mg PO TID PRN diclofenac potassium 50 mg PO BID fluticasone propionate 50 mcg/actuation 1 spray intranasal DAILY 30 days ibuprofen 600 mg PO Q8H PRN 7 days levothyroxine 50 mcg PO DAILY 90 days lidocaine 5% 1 patch topical DAILY omeprazole 40 mg PO DAILY 90 days rosuvastatin (Crestor) 20 mg PO DAILY [Updraft machine As directed] zolpidem 10 mg PO BEDTIME PRN Do you need a note to return to daycare/school/sports/work: No HPI HPI Comments History of Present Illness Details 62-year-old female presents today compla ining of right-sided low back pain that has been exacerbated. She has a past medical history of degenerative joint disease in her lumbar spine. She is was under the care pain management at 1 point and refused a epidural injection. She now states the back pain radiates through her mid posterior thigh. Denies paresthesias numbness tingling or weakness in her lower extremity. She denies any trauma or injury to the area that brought on this episode. [facility] Medical History Lipid disorder Hypothyroidism Allergic rhinitis Asthma Chronic GERD Headache syndrome Surgical History History of dilatation and curettage History of endometrial biopsy History of tubal ligation Family History Father CVD (cardiovascular disease) Arthritis Mother Lung cancer Brother Esophageal cancer Mental health disorder Sister Throat cancer Social History Household Members: None Housing: Apartment Alcohol intake: current Alcohol intake frequency: holidays/special occasions only Patient Tobacco Use Status: Never used Tobacco e-Cigarette/Vaping Use: Never Used Current occupational status: retired Current occupation: [employer] Sexual orientation: Straight/Heterosexual Gender identity: Female Cognitive needs: No Hearing needs: No Vision needs: Yes Review of Systems Const All systems reviewed & are unremarkable except as noted in HPI and below Eyes Reports no additional complaints ENT Reports no additional complaints Card Reports no additional complaints Resp Reports no additional complaints GI Reports no additional complaints Reports no additional complaints Physical Exam Vital Signs: Last Vital Signs Temp 97.5 F 04/26/23 08:38 Pulse 78 04/26/23 08:38 BP 110/80 04/26/23 08:38 Pulse Ox 98 04/26/23 08:38 Oxygen Delivery Method Room Air 04/26/23 08:38 BMI result Body Mass Index 32.7 Const General: healthy appearing and no acute distress HEENT Head: Yes normal to inspection, Yes normocephalic and Yes atraumatic General nose exam: Normal external nose present Face and sinus: Yes normal facial exam Resp Effort & Inspection: normal respiratory effort Auscultation: clear to auscultation bilaterally Cardio Rate: regular rate Rhythm: regular rhythm General: Yes no CVA tenderness Back/Spine/Pelvis Back: no CVA tenderness Thoracic/Lumbar Spine: straight leg raise negative bilaterally, pain with thoraco-lumbar ROM and paraspinal muscle tenderness on the right in the lower lumbar Neuro Gait exam (Neuro): Normal gait present Motor exam (neuro): 5/5 motor strength present throughout Assessment & Plan Assessment & Plan (1) Lumbar degenerative disc disease: Code(s): M51.36 - Other intervertebral disc degeneration, lumbar region Plan: The patient will try muscle relaxers to see if she can calm this exacerbation. She is going to talk to her PCP about the possibility of a surgical evaluation. (2) Lumbar back pain with radiculopathy affecting lower extremity: Code(s): M54.16 - Radiculopathy, lumbar region Plan: See plan Plan See plan Medications: New cyclobenzaprine 5 mg PO TID PRN 10 tabs 0RF muscle spasm Coding Level of Care Code Est Pt Level 3 (40071) Diagnoses Lumbar degenerative disc disease M51.36 Lumbar back pain with radiculopathy affecting lower extremity M54.16
[2023-04-26 08:38] VITALS: BP 110/80; PULSE 78; TEMP 36.4; O2SAT 98; BMI 32.7
== END 2023-04-26 09:15 | disposition home or self-care (01) ==
PROVIDERS: PCP Internal Medicine; Visit Provider Physician Assistant Medical
DX: M51.36 Other intervertebral disc degeneration, lumbar region (principal); M54.16 Radiculopathy, lumbar region
CPT/HCPCS: 99213

== ENCOUNTER 2023-05-11 09:55 | Outpatient (REF) | payer OTHER, SELFPAY ==
--- NOTE | ~2023-05-11 | US_ITS ---
EXAMINATION: US PELVIS CLINICAL INFORMATION: Pelvic and perineal pain. COMPARISON: None available. TECHNIQUE: Ultrasound of the pelvis is performed using both transabdominal and transvaginal transducers along with Doppler. Transvaginal imaging is performed due to inadequate visualization transabdominally. FINDINGS: Uterus: The uterus is anteverted and anteflexed measuring 11.2 x 3.6 x 5.8 cm. The double wall endometrial thickness is 0.8 mm. Trace fluid present in the cervix. The uterus is smooth in contour and has normal myometrial echogenicity. Two uterine fibroids are present, one at the fundus measuring 1.3 cm (previously 1.4 cm) and another on the left measuring 1.0 cm (previously 1.7 cm). Adnexa: Both ovaries are visualized. There is normal color flow to the adnexa. There is no ovarian torsion. There is no pelvic ascites or fluid collection. Right ovary measures 1.6 x 0.8 x 1.1 cm. Left ovary measures 1.0 x 1.2 x 0.8 cm. US/US pelvic and transvaginal IMPRESSION: Small uterine fibroids.
== END 2023-05-11 09:56 | disposition home or self-care (01) ==
LOC: HO.US 09:55
PROVIDERS: PCP Internal Medicine; Visit Provider Advanced Practice Midwife
DX: R10.2 Pelvic and perineal pain (principal)
CPT/HCPCS: 76830; 76856

== ENCOUNTER 2023-06-07 09:18 | Outpatient (REF) | payer OTHER, SELFPAY ==
--- NOTE | ~2023-06-07 | MM_ITS ---
EXAMINATION: MM SCREENING DIGITAL BREAST TOMOSYNTHESIS, BILATERAL CLINICAL INFORMATION: Screening. Asymptomatic. COMPARISON: Mammography: 06/03/2022, 05/30/2022, and dating back to 05/19/2015. TECHNIQUE: Digital breast tomosynthesis is performed in both the craniocaudal and mediolateral oblique views along with computer-aided detection (CAD). Synthesized 2D images are generated from the tomosynthesis. FINDINGS: There are scattered areas of fibroglandular density (ACR BI-RADS breast composition Category b). There are similar subcentimeter intramammary nodes in the left breast. These are benign. There are no suspicious masses, suspicious grouped calcifications, or areas of architectural distortion in either breast. The parenchymal pattern is stable from prior exams. No skin or axillary abnormality. MM/MM tomosynthesis screening BI IMPRESSION: No mammographic evidence of malignancy. No interval change. ASSESSMENT: BI-RADS BI-RADS 2 - Benign Findings RECOMMENDATION: Routine annual mammography screening. 1 year F/U This examination should not preclude the clinical evaluation of a suspicious palpable abnormality. This patient's information was entered into a reminder system with a target due date for their next mammogram.
== END 2023-06-07 09:19 | disposition home or self-care (01) ==
LOC: HO.MAMMO 09:18
PROVIDERS: PCP Internal Medicine; Visit Provider Internal Medicine
DX: Z12.31 Encounter for screening mammogram for malignant neoplasm of breast (principal)
CPT/HCPCS: 77063; 77067

== ENCOUNTER → 2023-06-07 09:45 | Outpatient (BNV) | payer OTHER, SELFPAY | PROVIDERS: PCP Internal Medicine; Visit Provider Radiology Diagnostic Radiology | DX: Z12.31 Encounter for screening mammogram for malignant neoplasm of breast (principal) | CPT/HCPCS: 77063; 77067 ==

== ENCOUNTER 2023-06-09 14:01 | Outpatient (REF) | payer OTHER, SELFPAY ==
[2023-06-11 11:44] LABS: BV Int Neg Control Negative (Negative); BV Int Pos Control Positive (Positive)
== END 2023-06-09 14:02 | disposition home or self-care (01) ==
LOC: HO.LNP 14:01
PROVIDERS: PCP Internal Medicine; Visit Provider Advanced Practice Midwife
DX: D25.9 Leiomyoma of uterus, unspecified (principal); N89.8 Other specified noninflammatory disorders of vagina; Z71.2 Person consulting for explanation of examination or test findings
CPT/HCPCS: 87480; 87510; 87660; 99212

== ENCOUNTER 2023-06-09 14:01 | Outpatient (AMB) | payer OTHER, SELFPAY ==
--- NOTE | 2023-06-09 14:02 | A.OFFVIS_ITS ---
Vital Signs 06/09/23 14:06 Height 5 ft 2 in Weight 178 lb 9.191 oz BMI 32.7 BP 118/70 Intake Visit Reasons: Ultra sound follow up Quality Eng Required: No Information Interpreted: non-clinical & clinical Ramp Manager: Ramp Manager Present (Nicole Ayers LEONIDES) Accompanied by: Self / Same As Patient Allergies No Known Allergies [No Known Allergies*] Allergy (Verified 06/09/23 14:06) Post menopausal: Yes HPI Comments Details: Patient is here today to discuss her ultrasound test results. She has a known history of fibroids. She denies any pelvic pain or postmenopausal bleeding. She does report feeling like she cut herself in the vulvar area after feeling initially itchy, she things from rushing with her fingernail and wanted to have it checked out today. She denies any abnormal vaginal discharge or generalized itching. She is not sexually active. [facility] Medical History Lipid disorder Hypothyroidism Allergic rhinitis Asthma Chronic GERD Headache syndrome Surgical History History of dilatation and curettage History of endometrial biopsy History of tubal ligation Family History Father CVD (cardiovascular disease) Arthritis Mother Lung cancer Brother Esophageal cancer Mental health disorder Sister Throat cancer Social History Household Members: None Housing: Apartment Alcohol intake: current Alcohol intake frequency: holidays/special occasions only Patient Tobacco Use Status: Never used Tobacco e-Cigarette/Vaping Use: Never Used 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 occupational 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 Sexual orientation: Straight/Heterosexual Gender identity: Female Cognitive needs: No Hearing needs: No Vision needs: Yes Review of Systems Const All systems reviewed & are unremarkable except as noted in HPI and below Physical Exam Vital Signs: Last Vital Signs BP 118/70 06/09/23 14:06 BMI result Body Mass Index 32.7 Const General: cooperative, healthy appearing and no acute distress Orientation/consciousness: patient oriented x3 GI Inspection: Yes normal to inspection Palpation (GI): Soft to palpation and Other GI palpation findings present (Nontender) Rectal Exam - Female: visual inspection normal Other: Small 3 mm abrasion at the introitus does not appear herpetic most likely mechanical abrasion to the skin surface. No signs of infection, drainage or erythema. General: Yes bladder normal to palpation External Female Exam: normal appearance of the urethra Speculum Exam - Vagina: normal appearance of the vagina, normal palpation and normal vaginal discharge Speculum Exam - Cervix: normal appearance of the cervix and normal palpation Bimanual exam- vagina & uterus: normal bimanual exam, normal palpation, uterine size normal, bladder normal to palpation, normal palpation, uterine shape normal and non-tender Bimanual Exam- Adnexa, other: normal adnexae Neuro General: patient oriented x3 Results Reviewed Results Reviewed: [address] [address] Ultrasound Report Signed Patient: Shireen Valentin MR#: [id number] : 1960 Acct:[id number] Age/Sex: 63 / F ADM Date: 05/11/23 Loc: .[place] Attending Dr: Yasmin Philippe CNM Ordering Physician: Yasimn Philippe CNM Date of Service: 05/11/23 Procedure(s): US pelvic and transvaginal Accession Number(s): [id number] cc: Yessi Delaney MD; Yasmin Philippe CNM~ EXAMINATION: US PELVIS CLINICAL INFORMATION: Pelvic and perineal pain. COMPARISON: None available. TECHNIQUE: Ultrasound of the pelvis is performed using both transabdominal and transvaginal transducers along with Doppler. Transvaginal imaging is performed due to inadequate visualization transabdominally. FINDINGS: Uterus: The uterus is anteverted and anteflexed measuring 11.2 x 3.6 x 5.8 cm. The double wall endometrial thickness is 0.8 mm. Trace fluid present in the cervix. The uterus is smooth in contour and has normal myometrial echogenicity. Two uterine fibroids are present, one at the fundus measuring 1.3 cm (previously 1.4 cm) and another on the left measuring 1.0 cm (previously 1.7 cm). Adnexa: Both ovaries are visualized. There is normal color flow to the adnexa. There is no ovarian torsion. There is no pelvic ascites or fluid collection. Right ovary measures 1.6 x 0.8 x 1.1 cm. Left ovary measures 1.0 x 1.2 x 0.8 cm. US/US pelvic and transvaginal IMPRESSION: Small uterine fibroids. Dictated By: Alexander Gonzalez MD Signed By: <Electronically signed by Alexander Gonzalez MD in OV> 05/17/23 0009 DD/ 1045 TD/TT: Office Clerk Routine: SS Assessment & Plan Assessment & Plan (1) Encounter to discuss test results: Code(s): Z71.2 - Person consulting for explanation of examination or test findings (2) Uterine fibroid: Code(s): D25.9 - Leiomyoma of uterus, unspecified Qualifiers: Uterine leiomyoma location: unspecified location Qualified Code(s): D25.9 - Leiomyoma of uterus, unspecified (3) Skin abrasion: Code(s): T14.8XXA - Other injury of unspecified body region, initial encounter Plan Discussed: Ultrasound findings of 2 fibroids appear stable, some reduction in size. Reviewed surveillance recommendations for fibroids would be yearly unless there is any postmenopausal bleeding, pelvic pain, pressure, below bloating discomfort advised to call sooner for earlier evaluation. 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 Advised to use Aquaphor or Vaseline to coat protect the skin abrasion, and to be careful with her fingernails and avoidance of trauma to the skin accidentally. If this area is not healing well or any persistent concerns to call the office for further follow-up. BV panel obtained just to rule out any underlying yeast or irritation that would have caused the minor itching initially. All of her questions and concerns were addressed to the best of my ability. She is agreeable to the plan of care. This note is constructed using voice recognition software. While every effort has been made to ensure accuracy, reheat furnace operator errors may have been included. Orders: Orders US pelvic and transvaginal 04/15/24 D25.9 - Leiomyoma of uterus, unspecified Bacterial Vaginosis Panel Today D25.9 - Leiomyoma of uterus, unspecified, N89.8 - Other specified noninflammatory disorders of vagina Coding Level of Care Code Est Pt Level 3 (48311) Diagnoses Encounter to discuss test results Z71.2 Uterine leiomyoma, unspecified location D25.9 Uterine leiomyoma location: unspecified location Skin abrasion T14.8XXA
[2023-06-09 14:06] VITALS: BP 118/70; BMI 32.7
== END 2023-06-09 14:44 | disposition home or self-care (01) ==
PROVIDERS: PCP Internal Medicine; Visit Provider Advanced Practice Midwife
DX: Z71.2 Person consulting for explanation of examination or test findings (principal); D25.9 Leiomyoma of uterus, unspecified; T14.8XXA Other injury of unspecified body region, initial encounter
CPT/HCPCS: 99213

== ENCOUNTER 2023-06-14 13:40 | Outpatient (AMB) | payer OTHER, SELFPAY ==
[2023-06-14 14:08] VITALS: BP 112/70; PULSE 75; TEMP 36.6; O2SAT 97; BMI 33.0
--- NOTE | 2023-06-14 14:08 | MHC.OFFWIV ---
Intake Vital Signs 06/14/23 14:08 Height 5 ft 2 in Weight 180 lb 8 oz BMI 33.0 BP 112/70 Blood Pressure Location Rt brachial Position Sitting Pulse 75 Pulse Source Pulse Oximeter Temp 97.9 F Temp Source Oral Pulse Oximetry (%) 97 Intake Visit Reasons: EP RT joint /hip pain Intake Note: pt is here for right joint pain and hip pain for 3 days Patient Tobacco Use Status: Never used Tobacco Allergies No Known Allergies [No Known Allergies*] Allergy (Verified 06/14/23 14:10) Do you need a note to return to daycare/school/sports/work: No HPI EP RT joint /hip pain HPI Details 63 year old female patient presents today with an exacerbation of right lower back/buttock/hip pain. She reports an increase in pain over the last 3-4 days. Denies trauma or exacerbating event. She was seen previously at the [facility] [place] and imaging was done: Hip MRI was unremarkable. Lumbar MRI: Mild to moderate multilevel degenerative spondyloarthropathy of the lumbar spine. Most notably, there are narrowings/stenoses of the subarticular zones from L3-S1. Moderate neural foraminal stenoses from L3-S1. No overt spinal canal stenosis centrally. She was offered right SIJ and GTB injections with the Pain Management office, however declined as she was not interested in injection therapy. Has been using Tylenol at home without relief. Denies any leg weakness or numbness. Denies any saddle anesthesia. [facility] Medical History Lipid disorder Hypothyroidism Allergic rhinitis Asthma Chronic GERD Headache syndrome Surgical History History of dilatation and curettage History of endometrial biopsy History of tubal ligation Family History Father CVD (cardiovascular disease) Arthritis Mother Lung cancer Brother Esophageal cancer Mental health disorder Sister Throat cancer Social History Household Members: None Housing: Apartment Alcohol intake: current Alcohol intake frequency: holidays/special occasions only Patient Tobacco Use Status: Never used Tobacco e-Cigarette/Vaping Use: Never Used 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 occupational 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 Sexual orientation: Straight/Heterosexual Gender identity: Female Cognitive needs: No Hearing needs: No Vision needs: Yes Review of Systems Const All systems reviewed & are unremarkable except as noted in HPI and below Physical Exam Vital Signs: Last Vital Signs Temp 97.9 F 06/14/23 14:08 Pulse 75 06/14/23 14:08 BP 112/70 06/14/23 14:08 Pulse Ox 97 06/14/23 14:08 BMI result Body Mass Index 33.0 Const General: cooperative and no acute distress Limitations: ambulation with cane Resp Effort & Inspection: normal respiratory effort Auscultation: clear to auscultation bilaterally Cardio Rate: regular rate Rhythm: regular rhythm Back/Spine/Pelvis Thoracic/Lumbar Spine: thoracic and lumbar spine normal to inspection, thoraco-lumbar ROM normal and straight leg raise negative bilaterally Sacroiliac joints: on the right tender to palpation and by passive hyperextension of lower ext Skin General skin exam: no rashes or lesions noted Neuro Gait exam (Neuro): Antalgic gait present (mildly - walking with cane) Motor exam (neuro): 5/5 motor strength present throughout Extrem General: Yes capillary refill normal and Yes no clubbing, cyanosis or edema Right lower extremity: hip/thigh (mild pain with IROT right hip) Psych Appearance: grossly normal Mental Status: mental status grossly normal Speech and movement: Normal speech and movement present Assessment & Plan Assessment & Plan (1) Inflammation of right sacroiliac joint: Code(s): M46.1 - Sacroiliitis, not elsewhere classified Plan: Patient has acute exacerbation of right SIJ dysfunction. She was previously offered interventional therapy with the Pain Management office however she declined any injections. We discussed PT, however she states PT was not helpful in the past. We reviewed some stretches she can do at home to help her SIJ discomfort. We reviewed options for treatment and discussed that management with opioids is not recommended. I will start her on a short course of prednisone and also a muscle relaxer to take prn at bedtime. I also refilled her Ibuprofen which she can take prn following completion of prednisone course. We reviewed indications, use, possible side effects of all medications. She has an appt. with her PCP later this month at which time she can f/u with this issue if it still ongoing at that time. Patient agrees to plan. Medications: New prednisone Take one tablet twice a day with food. 20 mg PO BID 10 tabs 0RF 5 days M46.1 - Sacroiliitis, not elsewhere classified cyclobenzaprine Take once a day at bedtime as needed for muscle tightness/spasms. 10 mg PO TID PRN 7 tabs 0RF muscle spasm 7 days M46.1 - Sacroiliitis, not elsewhere classified ibuprofen Do not take while taking Prednisone. 600 mg PO Q8H PRN 90 tabs 0RF pain M46.1 - Sacroiliitis, not elsewhere classified Coding Level of Care Code Est Pt Level 4 (15505) Diagnoses Inflammation of right sacroiliac joint M46.1
== END 2023-06-14 14:59 | disposition home or self-care (01) ==
PROVIDERS: PCP Internal Medicine; Visit Provider Nurse Practitioner Family
DX: M46.1 Sacroiliitis, not elsewhere classified (principal)
CPT/HCPCS: 99214

== ENCOUNTER 2023-07-06 07:54 | Outpatient (REF) | payer OTHER, SELFPAY ==
[2023-07-06 08:09] LABS: MANUAL DIFF FLAG NO
[2023-07-06 08:36] LABS: Basophils Absolute Auto 0.1 X10*3/uL (0.0-0.2); Basophils Percent Auto 0.9 % (0-2); Eosinophils Absolute Auto 0.4 X10*3/uL (0.0-0.4); Eosinophils Percent Auto 7.6 % (0-4); Hematocrit 41.3 % (37.0-47.0); Hemoglobin 13.5 g/dl (12.0-16.0); Imm Gran Abs Auto 0.01 X10*3/uL (0.00-0.03); Imm Gran Pct Auto 0.2 % (0.0-0.4); Lymphocytes Absolute Auto 2.5 X10*3/uL (1.2-4.9); Lymphocytes Percent Auto 44.6 % (20-40); Mean Corpuscular HGB Conc 32.7 g/dl (31.0-35.0); Mean Corpuscular Hemoglobin 28.2 pg (27.0-33.0); Mean Corpuscular Volume 86.2 fL (80.0-98.0); Mean Platelet Volume 10.3 fL (9.4-12.3); Monocytes Absolute Auto 0.5 X10*3/uL (0.1-1.2); Monocytes Percent Auto 8.4 % (2-11); Neutrophils Absolute Auto 2.2 x10*3/uL (2.0-8.3); Neutrophils Percent Auto 38.3 % (45-73); Platelet Count 224 X10*3/uL (160-400); Red Blood Count 4.79 X10*6/uL (4.20-5.50); Red Cell Distribution Width 13.8 % (11.0-16.0); White Blood Count 5.7 X10*3/uL (4.8-10.8)
[2023-07-06 09:05] LABS: Alanine Aminotransferase 13 U/L (0-31); Albumin Level 3.9 g/dL (3.5-5.0); Alkaline Phosphatase 95 U/L (39-117); Anion Gap 13 (12-20); Aspartate Amino Transferase 19 U/L (5-31); Bilirubin Total 0.4 mg/dL (0.0-1.0); Blood Urea Nitrogen 14 mg/dL (9-16); Calcium 9.7 mg/dL (8.4-10.2); Carbon Dioxide 26 mmol/L (22-29); Chloride 107 mmol/L (96-108); Cholesterol 183 mg/dL (<200); Estimated Glomerular Filt Rate > 60; Glucose Fasting 86 mg/dL (60-99); HDL Cholesterol 66 mg/dL (>40); LDL Cholesterol Calculated 98 mg/dL (<100); Potassium 3.8 mmol/L (3.3-5.1); Sodium 142 mmol/L (135-145); Triglycerides 97 mg/dL (<150)
[2023-07-06 09:20] LABS: TSH reflex Free T4 1.92 uIU/mL (0.32-4.0)
== END 2023-07-06 07:55 | disposition home or self-care (01) ==
LOC: HO.LAB 07:54
PROVIDERS: PCP Internal Medicine; Visit Provider Internal Medicine
DX: E78.5 Hyperlipidemia, unspecified (principal); E03.9 Hypothyroidism, unspecified
CPT/HCPCS: 36415; 80053; 80061; 84443; 85025

== ENCOUNTER 2023-07-14 12:50 | Outpatient (AMB) | payer OTHER, SELFPAY ==
[2023-07-14 13:10] VITALS: BP 110/70; PULSE 83; O2SAT 98; BMI 33.3
--- NOTE | 2023-07-14 13:10 | MHC.PC.OV ---
Vital Signs 07/14/23 13:10 Height 5 ft 2 in Weight 182 lb BMI 33.3 BP 110/70 Blood Pressure Location Lt brachial Position Sitting Pulse 83 Pulse Source Pulse Oximeter Pulse Oximetry (%) 98 Oxygen Delivery Method Room Air Intake Visit Reasons: Annual PE Intake Note: Pt is here today for PE. Allergies No Known Allergies [No Known Allergies*] Allergy (Verified 07/14/23 13:13) Medication List - Last Reconciled 07/14/23 by Yessi Delaney MD albuterol sulfate 90 mcg/actuation 2 puffs inhalation Q4-6H PRN albuterol sulfate 0.63 mg (3 mL) inhalation QID PRN 30 days cetirizine 10 mg PO DAILY 90 days citalopram 30 mg PO DAILY clonazepam 0.5 mg PO BEDTIME PRN compr.stocking,knee,long,large As directed diclofenac potassium 50 mg PO BID fluticasone propionate 50 mcg/actuation 1 spray intranasal DAILY 30 days ibuprofen 600 mg PO Q8H PRN levothyroxine 50 mcg PO DAILY 90 days lidocaine 5% 1 patch topical DAILY omeprazole 40 mg PO DAILY 90 days rosuvastatin (Crestor) 20 mg PO DAILY [Updraft machine As directed] zolpidem 10 mg PO BEDTIME PRN Tobacco use date assessed: 07/14/23 Fall risk assessment: 1 Fall in past year Last assessed Fall Risk: 07/14/23 Dental Screening Dental Screen Date: 07/14/23 Did you have a dental visit in the last 12 months?: Yes Did you have a dental problem in the last 6 months where you did not have access to dental care?: No Was dental information given to patient?: Patient has dentist HPI Annual PE HPI Details Pt presents for PE. Pt complains of having difficulty with self care like washing, but also preparing meals and cooking, cleaning in the house because of her bilateral shoulder hip and lower back pain. Her daughter has been helping out but patient lives alone. [facility] Medical History Lipid disorder Hypothyroidism Allergic rhinitis Asthma Chronic GERD Headache syndrome Surgical History History of dilatation and curettage History of endometrial biopsy History of tubal ligation Family History Father CVD (cardiovascular disease) Arthritis Mother Lung cancer Brother Esophageal cancer Mental health disorder Sister Throat cancer Social History Household Members: None Housing: Apartment Alcohol intake: current Alcohol intake frequency: holidays/special occasions only Patient Tobacco Use Status: Never used Tobacco e-Cigarette/Vaping Use: Never Used service: No 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 How often do you have a drink containing alcohol?: Never 3. How often do you have six or more drinks on one occasion?: Never Total Score: 0 TAYE-7 AMB Questionnaire TAYE-7 Date TAYE - 7 assessed: 05/02/22 Source: Developed by Drs. Kole Sarkar, Jennifer Brown, Christian Bautista and colleagues, with an educational harjit from [employer]. Review of Systems Const All systems reviewed & are unremarkable except as noted in HPI and below Reports no additional complaints Eyes Reports no additional complaints ENT Reports no additional complaints Card Reports no additional complaints Resp Reports no additional complaints GI Reports no additional complaints Reports no additional complaints Musc Reports no additional complaints Physical exam (Primary Care) Vital Signs: Last Vital Signs Pulse 83 07/14/23 13:10 BP 110/70 07/14/23 13:10 Pulse Ox 98 07/14/23 13:10 Oxygen Delivery Method Room Air 07/14/23 13:10 BMI result Body Mass Index 33.3 Tobacco/Smoking Status: Tobacco use Status Tobacco use date assessed 07/14/23 07/14/23 13:19 Patient Tobacco Use Status Never used Tobacco 07/14/23 13:19 e-Cigarette/Vaping Use Never Used 07/14/23 13:19 Thrive Assessment: Date of Thrive Assessment Date Thrive assessed 05/02/22 07/14/23 13:19 Const General: no acute distress HENMT Head: Yes normal to inspection Mouth: Normal oral and palatal mucosa present Eyes General: appearance normal, both eyes and all related structures Neck Neck: Yes supple Resp Effort & Inspection: normal respiratory effort Auscultation: clear to auscultation bilaterally Cardio Rhythm: regular rhythm Heart sounds: S1 normal heart sound present and S2 normal heart sound present GI Inspection: Yes normal to inspection Palpation (GI): Soft to palpation Percussion: Yes normal to percussion Auscultation: normal bowel sounds Assessment and Plan Assessment & Plan (1) Positive colorectal cancer screening using Cologuard test: Comment: 05/05, patient refused colonoscopy. She is aware of possibility of undetected colon cancer. 07/14/23 pt agreed to colonoscopy, referral in the chart Code(s): R19.5 - Other fecal abnormalities Plan: Patient agreed to see a bedspread cutter to discuss colonoscopy (2) Hypothyroidism: Code(s): E03.9 - Hypothyroidism, unspecified Plan: Continue levothyroxine (3) Hyperlipidemia: Code(s): E78.5 - Hyperlipidemia, unspecified Plan: Continue Crestor (4) Annual physical exam: Code(s): Z00.00 - Encounter for general adult medical examination without abnormal findings Plan: Well-balanced diet regular physical activity weight loss discussed with the patient she has up-to-date with the Pap smear or mammogram. (5) Vitamin D deficiency: Code(s): E55.9 - Vitamin D deficiency, unspecified Plan: Continue vitamin-D supplement (6) Depression, major, recurrent, moderate: Comment: f/u with psychiatry Code(s): F33.1 - Major depressive disorder, recurrent, moderate Plan: Continue current medications and follow-up with a psychiatrist and a counselor Orders: Orders Comprehensive Smiley. Panel Fast 1 Year E03.9 - Hypothyroidism, unspecified, E55.9 - Vitamin D deficiency, unspecified, E78.5 - Hyperlipidemia, unspecified, Z00.00 - Encounter for general adult medical examination without abnormal findings Vitamin D 25-OH Total 1 Year E03.9 - Hypothyroidism, unspecified, E55.9 - Vitamin D deficiency, unspecified, E78.5 - Hyperlipidemia, unspecified, Z00.00 - Encounter for general adult medical examination without abnormal findings Complete Blood Count Auto Diff 1 Year E03.9 - Hypothyroidism, unspecified, E55.9 - Vitamin D deficiency, unspecified, E78.5 - Hyperlipidemia, unspecified, Z00.00 - Encounter for general adult medical examination without abnormal findings Lipid Panel 1 Year E03.9 - Hypothyroidism, unspecified, E55.9 - Vitamin D deficiency, unspecified, E78.5 - Hyperlipidemia, unspecified, Z00.00 - Encounter for general adult medical examination without abnormal findings TSH reflex Free T4 1 Year E03.9 - Hypothyroidism, unspecified, E55.9 - Vitamin D deficiency, unspecified, E78.5 - Hyperlipidemia, unspecified, Z00.00 - Encounter for general adult medical examination without abnormal findings Referrals Gastroenterology Referral R19.5 - Other fecal abnormalities Coding Level of Care Code Est Pt Prev Care 40-64y(92166) Diagnoses Positive colorectal cancer screening using Cologuard test R19.5 Hypothyroidism E03.9 Hyperlipidemia E78.5 Annual physical exam Z00.00 Vitamin D deficiency E55.9 Depression, major, recurrent, moderate F33.1
== END 2023-07-14 13:57 | disposition home or self-care (01) ==
PROVIDERS: PCP Internal Medicine; Visit Provider Internal Medicine
DX: Z00.00 Encounter for general adult medical examination without abnormal findings (principal); F33.1 Major depressive disorder, recurrent, moderate; R19.5 Other fecal abnormalities; E03.9 Hypothyroidism, unspecified; E78.5 Hyperlipidemia, unspecified; E55.9 Vitamin D deficiency, unspecified
CPT/HCPCS: 99396

== ENCOUNTER 2023-09-07 08:03 | Outpatient (AMB) | payer OTHER, SELFPAY ==
--- NOTE | 2023-09-07 08:23 | MHC.OFFWIV ---
Intake Vital Signs 09/07/23 08:24 Height 5 ft 2 in Weight 185 lb BMI 33.8 BP 118/70 Blood Pressure Location Lt brachial Position Sitting Pulse 68 Pulse Source Pulse Oximeter Temp 98.1 F Temp Source Oral Pulse Oximetry (%) 98 Oxygen Delivery Method Room Air Intake Visit Reasons: rash in both arm pits Intake Note: pt here c/o rash in both arm pits Patient Tobacco Use Status: Never used Tobacco Allergies No Known Allergies [No Known Allergies*] Allergy (Verified 09/07/23 08:23) Do you need a note to return to daycare/school/sports/work: No HPI rash in both arm pits HPI Details This note is constructed using voice recognition software. While every effort has been made to ensure accuracy, professional development manager errors may have been included. 63-year-old female patient presents with intermittent axillary rash, right groin, and under the breasts. She notes that this has been happening more consistently in the last 2 weeks, but typically happens each summer when it gets warm. She notes that it gets worsened by heat, or lots of sweating. She has tried [id number] baby powder which has helped keep it mostly controlled, however is not completely resolve. She denies any new soaps, lotions, deodorants. She does report an excessive amount of sweating, which she does treat with antiperspirant. No fevers, chills. [facility] Medical History (Updated 07/14/23 @ 13:57 by Yessi Delaney MD) Hypothyroidism Allergic rhinitis Asthma Chronic GERD Headache syndrome Surgical History History of dilatation and curettage History of endometrial biopsy History of tubal ligation Family History Father CVD (cardiovascular disease) Arthritis Mother Lung cancer Brother Esophageal cancer Mental health disorder Sister Throat cancer Social History Household Members: None Housing: Apartment Alcohol intake: current Alcohol intake frequency: holidays/special occasions only Patient Tobacco Use Status: Never used Tobacco e-Cigarette/Vaping Use: Never Used service: No 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 occupational 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 Sexual orientation: Straight/Heterosexual Gender identity: Female Cognitive needs: No Hearing needs: No Vision needs: Yes Review of Systems Const All systems reviewed & are unremarkable except as noted in HPI and below Physical Exam Vital Signs: Last Vital Signs Temp 98.1 F 09/07/23 08:24 Pulse 68 09/07/23 08:24 BP 118/70 09/07/23 08:24 Pulse Ox 98 09/07/23 08:24 Oxygen Delivery Method Room Air 09/07/23 08:24 BMI result Body Mass Index 33.8 Const General: cooperative, healthy appearing, comfortable, no acute distress and alert Orientation/consciousness: patient oriented x3 Limitations: no limitations Skin Other: Erythematous fungal rash to bilateral axilla, and right groin area. No raised lesions or open lesions, no discharge. General skin exam: elasticity normal and turgor normal Neuro General: patient oriented x3 Psych Appearance: grossly normal Mental Status: mental status grossly normal Speech and movement: Normal speech and movement present Affect: normal affect Assessment & Plan Assessment & Plan (1) Fungal dermatitis: Code(s): B36.9 - Superficial mycosis, unspecified Plan: History and physical exam likely consistent with fungal rash it we will try a nystatin topical powder. Advised patient to follow up with primary care or consider referral to Dermatology as needed if this does not resolve. Additionally advised to follow up with PCP in regards to excess sweating, she may have a hyperhidrosis picture that may need to be resolved to further reduce recurrent rashes. Plan See above for full details and plan. Medications: New nystatin 1 appl topical BID 7 days 15 grams 0RF Coding Level of Care Code Est Pt Level 3 (11400) Diagnoses Fungal dermatitis B36.9
[2023-09-07 08:24] VITALS: BP 118/70; PULSE 68; TEMP 36.7; O2SAT 98; BMI 33.8
== END 2023-09-07 09:14 | disposition home or self-care (01) ==
PROVIDERS: PCP Internal Medicine; Visit Provider Registered Nurse
DX: B36.9 Superficial mycosis, unspecified (principal)
CPT/HCPCS: 99213

== ENCOUNTER 2023-10-02 09:02 | Outpatient (REF) | payer OTHER, SELFPAY ==
[2023-10-04 23:33] LABS: TS Negative Control Passed; TS Panel A 0; TS Panel B 0; TS Positive Control Passed; TSpotTB Negative (Negative)
== END 2023-10-02 09:03 | disposition home or self-care (01) ==
LOC: HO.HMGCLDS 09:02
PROVIDERS: PCP Internal Medicine; Visit Provider Internal Medicine
DX: Z11.1 Encounter for screening for respiratory tuberculosis (principal)
CPT/HCPCS: 36415; 86481

== ENCOUNTER 2023-10-05 14:02 | Outpatient (REF) | payer OTHER, SELFPAY ==
[2023-10-05 18:16] LABS: Bacterial Vaginosis PCR NEGATIVE (Negative); Candida Group PCR NOT DETECTED (Not Detect); Candida glab krusei PCR NOT DETECTED (Not Detect); Trichomonas vaginalis PCR NOT DETECTED (Not Detect)
== END 2023-10-05 14:03 | disposition home or self-care (01) ==
LOC: HO.LAB 14:02
PROVIDERS: PCP Internal Medicine; Visit Provider Advanced Practice Midwife
DX: N89.8 Other specified noninflammatory disorders of vagina (principal); N95.0 Postmenopausal bleeding
CPT/HCPCS: 0352U; 99212

== ENCOUNTER 2023-10-05 14:02 | Outpatient (AMB) | payer OTHER, SELFPAY ==
--- NOTE | 2023-10-05 14:05 | A.OFFVIS_ITS ---
Vital Signs 3 10/05/23 14:08 BP 108/78 Intake Visit Reasons: Vaginal itching Claims Customer Service Representative: Claims Customer Service Representative Present (Maribell) Allergies No Known Allergies [No Known Allergies*] Allergy (Verified 10/05/23 14:05) HPI Comments Details: With concerns of external itching for a few weeks, and an external lump that she wants to have checked out. Denies any urinary symptoms. Upon further discussion she admits to pink spotting, every few months for the last year and occasional pain in her ovary. She is not sexually active. History of endometrial polypectomy at [facility] under anesthesia in February of 2017. Prior D&C in August 2016 revealed adipose tissue. Patient wants a female provider only for her care. [facility] Medical History (Updated 10/05/23 @ 14:24 by Yasmin Philippe CNM) Hypothyroidism Allergic rhinitis Asthma Chronic GERD Headache syndrome Surgical History History of dilatation and curettage History of endometrial biopsy History of tubal ligation Family History Father CVD (cardiovascular disease) Arthritis Mother Lung cancer Brother Esophageal cancer Mental health disorder Sister Throat cancer Social History Household Members: None Housing: Apartment Alcohol intake: current Alcohol intake frequency: holidays/special occasions only Patient Tobacco Use Status: Never used Tobacco e-Cigarette/Vaping Use: Never Used service: No 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 occupational 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 Sexual orientation: Straight/Heterosexual Gender identity: Female Cognitive needs: No Hearing needs: No Vision needs: Yes Review of Systems Const All systems reviewed & are unremarkable except as noted in HPI and below Physical Exam Vital Signs: Last Vital Signs BP 108/78 10/05/23 14:08 Const General: cooperative, healthy appearing and no acute distress Orientation/consciousness: patient oriented x3 GI Inspection: Yes normal to inspection Palpation (GI): Soft to palpation and Other GI palpation findings present (Nontender) Rectal Exam - Female: visual inspection normal General: Yes bladder normal to palpation External Female Exam: normal appearance of the urethra Speculum Exam - Vagina: normal appearance of the vagina, normal palpation, normal vaginal discharge and vagina atrophic Speculum Exam - Cervix: normal appearance of the cervix and normal palpation Bimanual exam- vagina & uterus: normal bimanual exam, normal palpation, uterine size normal, bladder normal to palpation, normal palpation, uterine shape normal and non-tender Bimanual Exam- Adnexa, other: normal adnexae Female genitals images: 2 1. 2cm, nontender rounded mass Neuro General: patient oriented x3 Assessment & Plan Assessment & Plan (1) Postmenopausal bleeding: Code(s): N95.0 - Postmenopausal bleeding Category: Medical Plan Discussed: Advised with any postmenopausal bleeding that she would require an endometrial biopsy. She is adamant she would not be able to tolerate the procedure in the room and request anesthesia with a female provider. I recommend she have an ultrasound, and after her follow up, can have a referral to [facility] or alternative for a female provider. Gluteal mass, is superficial and recommend she have a surgeon evaluated, she declines presently and prefers to watch the area to see if something comes out of it. I informed her I do not believe that anything is going to come out of it because of the size and consistency and most likely will be needing to be opened up. It is not infected or inflamed therefore warm compresses most likely will not change the circumstance. She request medication be sent in today before results of the bacterial vaginosis panel returned to help with her external irritation. Rx sent to pharmacy for topical cream. Ultrasound follow up in person. All of her questions and concerns were addressed to the best of my ability and shared decision making. She is agreeable to the plan of care. This note is constructed using voice recognition software. While every effort has been made to ensure accuracy, furnace operator and tender errors may have been included. Orders: Orders 2 Bacterial Vaginosis Panel Today N89.8 - Other specified noninflammatory disorders of vagina, N95.0 - Postmenopausal bleeding US pelvic and transvaginal Today N95.0 - Postmenopausal bleeding Medications: New 2 clotrimazole-betamethasone 1-0.05 % 1 appl topical BID 45 grams 0RF fungal rash 7 days Coding Level of Care Code Est Pt Level 3 (06109) Diagnoses Postmenopausal bleeding N95.0
[2023-10-05 14:08] VITALS: BP 108/78
== END 2023-10-05 14:30 | disposition home or self-care (01) ==
PROVIDERS: PCP Internal Medicine; Visit Provider Advanced Practice Midwife
DX: N95.0 Postmenopausal bleeding (principal)
CPT/HCPCS: 99213

== ENCOUNTER 2023-10-12 09:59 | Outpatient (REF) | payer OTHER, SELFPAY ==
--- NOTE | ~2023-10-12 | US_ITS ---
EXAMINATION: US PELVIS CLINICAL INFORMATION: Postmenopausal bleeding. COMPARISON: Ultrasound pelvis 05/11/2023 TECHNIQUE: Ultrasound of the pelvis is performed using both transabdominal and transvaginal transducers along with Doppler. Transvaginal imaging is performed due to inadequate visualization transabdominally. FINDINGS: Uterus: The uterus is anteverted and measures 8.5 x 4.2 x 6.2 cm. Heterogeneous echotexture. The double wall endometrial thickness is 6.3 mm. Tiny amount of fluid is seen in the endometrial cavity. The uterus is smooth in contour and has heterogeneous myometrial echogenicity. Only 1 of the 2 fibroids seen previously is seen on the current study, measuring 1 cm in size. Adnexa: Both ovaries are visualized and unremarkable. There is no pelvic ascites or fluid collection. Right ovary measures 3.6 x 1.7 x 2.0 cm. Left ovary measures 2.0 x 0.9 x 1.4 cm. US/US pelvic and transvaginal IMPRESSION: 1. Heterogeneous myometrium with only 1 of the 2 fibroids seen on the current study measuring 1 cm in size. 2. Tiny amount of fluid is seen in the endometrial cavity. Electronically signed by: Alexander Gonzalez MD 10/16/2023 09:55 PM EDT RP
== END 2023-10-12 10:00 | disposition home or self-care (01) ==
LOC: HO.US 09:59
PROVIDERS: PCP Internal Medicine; Visit Provider Advanced Practice Midwife
DX: N95.0 Postmenopausal bleeding (principal)
CPT/HCPCS: 76830; 76856

== ENCOUNTER → 2023-11-09 11:23 | Outpatient (BNVA) | payer OTHER, SELFPAY | PROVIDERS: PCP Internal Medicine; Visit Provider Advanced Practice Midwife | DX: Z71.2 Person consulting for explanation of examination or test findings (principal); N95.0 Postmenopausal bleeding; R93.89 Abnormal findings on diagnostic imaging of other specified body structures | CPT/HCPCS: 99212 ==

== ENCOUNTER 2023-11-30 10:44 | Outpatient (AMB) | payer OTHER, SELFPAY ==
[2023-11-30 10:50] VITALS: BP 100/66; PULSE 84; O2SAT 96; BMI 34.6
--- NOTE | 2023-11-30 10:50 | MHC.PC.OV ---
Vital Signs 11/30/23 10:50 Height 5 ft 2 in Weight 189 lb BMI 34.6 BP 100/66 Blood Pressure Location Rt brachial Position Sitting Pulse 84 Pulse Source Pulse Oximeter Pulse Oximetry (%) 96 Oxygen Delivery Method Room Air Intake Visit Reasons: Hands pain Intake Note: Pt is here today for a sick visit. Pt c/o pain in her hands and legs.Pt also c/o dizziness. Allergies No Known Allergies [No Known Allergies*] Allergy (Verified 11/30/23 10:53) Medication List - Last Reconciled 11/30/23 by Yessi Delaney MD albuterol sulfate 90 mcg/actuation 2 puffs inhalation Q4-6H PRN albuterol sulfate 0.63 mg (3 mL) inhalation QID PRN 30 days cetirizine 10 mg PO DAILY 90 days citalopram 30 mg PO DAILY clonazepam 0.5 mg PO BEDTIME PRN clotrimazole-betamethasone 1-0.05 % 1 appl topical BID 7 days compr.stocking,knee,long,large As directed cyclobenzaprine 5 mg PO BEDTIME PRN diclofenac potassium 50 mg PO BID fluticasone propionate 50 mcg/actuation 1 spray intranasal DAILY 30 days Grab bar 1 long bar for in the shower, 2 regular bars for next to toilet and tub. ibuprofen 600 mg PO Q8H PRN levothyroxine 50 mcg PO DAILY 90 days lidocaine 5% 1 patch topical DAILY meclizine 25 mg PO TID nystatin 1 appl topical BID 7 days omeprazole 40 mg PO DAILY 90 days rosuvastatin (Crestor) 20 mg PO DAILY [Updraft machine As directed] zolpidem 10 mg PO BEDTIME PRN Tobacco use date assessed: 11/30/23 Dental Screening Dental Screen Date: 07/14/23 HPI Hands pain HPI Details Pt presents c/o bilateral hand pain and stiffness lasting all day getting worse for 3 months. Pt has been taking Ibuprofen with some relief. She denies joint swelling erythema or warmth. Patient complains of chronic lower back pain bilateral shoulder pain and she has been established with pain management but declined cortisone injections for lumbar spine degenerative joint disease. Patient quit her job 2 years ago and is applying for disability. Patient complains of intermittent positional vertigo denies nausea vomiting weakness or numbness in extremities or change in balance. PFSH Medical History (Updated 11/30/23 @ 20:35 by Yessi Delaney MD) Thickened endometrium Hypothyroidism Asthma Chronic GERD Headache syndrome Surgical History History of dilatation and curettage History of endometrial biopsy History of tubal ligation Family History Father CVD (cardiovascular disease) Arthritis Mother Lung cancer Brother Esophageal cancer Mental health disorder Sister Throat cancer Social History Household Members: None Housing: Apartment Alcohol intake: current Alcohol intake frequency: holidays/special occasions only Patient Tobacco Use Status: Never used Tobacco e-Cigarette/Vaping Use: Never Used service: No Current occupational status: retired Current occupation: [employer] Sexual orientation: Straight/Heterosexual Gender identity: Female Cognitive needs: No Hearing needs: No Vision needs: Yes Questionnaire PHQ-9 Over the last 2 weeks, how often have you been bothered by any of the following problems? 2. Feeling down, depressed, or hopeless: not at all 3. Trouble falling or staying asleep, or sleeping too much: not at all 5. Poor appetite or overeating: not at all 6. Feeling bad about yourself - or that you are a failure or have let yourself or your family down: not at all 7. Trouble concentrating on things, such as reading the newspaper or watching television: not at all 8. Moving or speaking so slowly that other people could have noticed. Or the opposite - being so fidgety or restless that you have been moving around a lot more than usual: several days 9. Thoughts that you would be better off or of hurting yourself in some way: not at all Source: Developed by Drs. Kole Sarkar, Jennifer Brown, Christian Bautista and colleagues, with an educational harjit from [employer]. Thrive Questionnaire Date Thrive assessed: 05/02/22 I am a: Patient What is your living situation today?: I have a steady place to live Within the past 12 months, did the food you bought not last and you didn't have the money to get more?: Never true Within the past 12 months, did you worry whether your food would run out before you got money to buy more?: Never true Do you have trouble paying for medicines?: No Do you have trouble getting transportation to medical appointments?: No Do you have trouble paying your heating and electricity bill?: No Do you have trouble taking care of your child, family member or friend?: No Do you have trouble with day-to-day activities such as bathing, preparing meals, shopping, managing finances, etc.?: No Are you currently unemployed and looking for a job?: No Are you interested in more education?: No Please select the resources that you would like help with: None Currently or been in a relationship where the following occur: I choose not to answer THRIVE Score: 0 AUDIT C Alcohol Use Questionnaire (AUDIT-C) 1. How often do you have a drink containing alcohol?: Never Total Score: 0 TAYE-7 AMB Questionnaire TAYE-7 Date TAYE - 7 assessed: 05/02/22 Feeling nervous, anxious, or on edge: 0 = Not at all Not being able to stop or control worryin = Not at all Worrying too much about different things: 0 = Not at all Trouble relaxin = Not at all Being so restless that it is hard to sit still: 0 = Not at all Becoming easily annoyed or irritable: 0 = Not at all Feeling afraid as if something awful might happen: 0 = Not at all Total TAYE-7 score (0-4 normal; 5-9 mild; 10-14 moderate; 15-21 severe): 0 Source: Developed by Drs. Kole Sarkar, Jennifer Brown, Christian Bautista and colleagues, with an educational harjit from [employer]. Review of Systems Const All systems reviewed & are unremarkable except as noted in HPI and below Card Reports no additional complaints Resp Reports no additional complaints GI Reports no additional complaints Reports no additional complaints Physical exam (Primary Care) Vital Signs: Last Vital Signs Pulse 84 11/30/23 10:50 BP 100/66 11/30/23 10:50 Pulse Ox 96 11/30/23 10:50 Oxygen Delivery Method Room Air 11/30/23 10:50 BMI result Body Mass Index 34.6 Tobacco/Smoking Status: Tobacco use Status Tobacco use date assessed 11/30/23 11/30/23 10:56 Patient Tobacco Use Status Never used Tobacco 11/30/23 10:51 e-Cigarette/Vaping Use Never Used 11/30/23 10:51 Thrive Assessment: Date of Thrive Assessment Date Thrive assessed 05/02/22 11/30/23 10:51 Currently or been in a relationship where the following occur: I choose not to answer Const General: no acute distress HENMT Ears: hearing grossly normal bilaterally Face and sinus: Yes normal facial exam Neck Neck: Yes supple Resp Effort & Inspection: normal respiratory effort Auscultation: clear to auscultation bilaterally Cardio Rhythm: regular rhythm Heart sounds: S1 normal heart sound present and S2 normal heart sound present GI Inspection: Yes normal to inspection Palpation (GI): Soft to palpation Percussion: Yes normal to percussion Auscultation: normal bowel sounds Back/Spine/Pelvis Other: Paraspinal tenderness lower lumbar region, straight leg rising 90 degrees bilaterally motor strength 5/5 deep tendon reflexes 2+ bilaterally Neuro General: CN's II-XI intact bilaterally Motor exam (neuro): 5/5 motor strength present throughout Coordination: [id number] test normal and tandem gait normal Romberg Test: Negative Extrem General: Yes no joint enlargement and Yes no clubbing, cyanosis or edema Coding Level of Care Code Est Pt Level 4 (96399) Diagnoses Bilateral hand pain M79.641; M79.642 Lumbar degenerative disc disease M51.36 Benign positional vertigo H81.10 Hyperlipidemia E78.5 Depression, major, recurrent, moderate F33.1 Assessment & Plan Assessment & Plan (1) Bilateral hand pain: Comment: Chronic, negative rheumatoid factor normal sed rate 10/2022 Code(s): M79.641 - Pain in right hand; M79.642 - Pain in left hand Category: Medical Plan: Patient will follow-up with gis developer, repeat rheumatoid factor sed rate today continue ibuprofen as needed (2) Lumbar degenerative disc disease: Comment: MRI 10/2022 [id number] degenerative changes from L3-S1 level, established with pain management declined cortisone injections and physical therapy Code(s): M51.36 - Other intervertebral disc degeneration, lumbar region Category: Medical Plan: Follow-up with pain management continue ibuprofen p.r.n. physical therapy was recommended but patient declined. She is applying for disability , stating that she is not able to work because of her caloric lower back pain (3) Benign positional vertigo: Code(s): H81.10 - Benign paroxysmal vertigo, unspecified ear Category: Medical Plan: Patient will try meclizine if the symptoms persist she will be referred to vestibular therapy (4) Hyperlipidemia: Comment: On Crestor Code(s): E78.5 - Hyperlipidemia, unspecified Category: Medical Plan: Continue crestor (5) Depression, major, recurrent, moderate: Comment: f/u with psychiatry, controlled on citalopram Code(s): F33.1 - Major depressive disorder, recurrent, moderate Category: Medical Plan: Follow-up with psychiatry Orders: Orders XR hand LT min 3V Today M79.641 - Pain in right hand, M79.642 - Pain in left hand Erythrocyte Sedimentation Rate Today M79.641 - Pain in right hand, M79.642 - Pain in left hand Rheumatoid Factor Today M79.641 - Pain in right hand, M79.642 - Pain in left hand XR hand RT min 3V Today M79.641 - Pain in right hand, M79.642 - Pain in left hand Cyclic Citrullinated Peptide Today M79.641 - Pain in right hand, M79.642 - Pain in left hand Referrals Rheumatology Referral M79.641 - Pain in right hand, M79.642 - Pain in left hand Medications: New meclizine 25 mg PO TID 30 tabs 0RF
== END 2023-11-30 11:42 | disposition home or self-care (01) ==
PROVIDERS: PCP Internal Medicine; Visit Provider Internal Medicine
DX: M79.641 Pain in right hand (principal); F33.1 Major depressive disorder, recurrent, moderate; M79.642 Pain in left hand; M51.369 Other intervertebral disc degeneration, lumbar region without mention of lumbar back pain or lower extremity pain; H81.10 Benign paroxysmal vertigo, unspecified ear; E78.5 Hyperlipidemia, unspecified

== ENCOUNTER → 2023-11-30 10:44 | Outpatient (BNVA) | payer OTHER, SELFPAY | PROVIDERS: PCP Internal Medicine; Visit Provider Internal Medicine | DX: M79.641 Pain in right hand (principal); M79.642 Pain in left hand; H81.10 Benign paroxysmal vertigo, unspecified ear; E78.5 Hyperlipidemia, unspecified; F33.1 Major depressive disorder, recurrent, moderate; M51.369 Other intervertebral disc degeneration, lumbar region without mention of lumbar back pain or lower extremity pain | CPT/HCPCS: 96127; 99212 ==

== ENCOUNTER 2023-11-30 11:47 | Outpatient (REF) | payer OTHER, SELFPAY ==
[2023-11-30 14:16] LABS: Rheumatoid Factor < 13.0 IU/mL (<15.0)
[2023-11-30 14:38] LABS: Erythrocyte Sedimentation Rate 10 MM/HR (0-20)
[2023-12-04 17:44] LABS: Cyclic Citrullinated Peptide <16 UNITS
== END 2023-11-30 11:48 | disposition home or self-care (01) ==
LOC: HO.HMGCX 11:47
PROVIDERS: PCP Internal Medicine; Visit Provider Internal Medicine
DX: M79.641 Pain in right hand (principal); M79.642 Pain in left hand
CPT/HCPCS: 36415; 73130; 85652; 86200; 86431

== ENCOUNTER 2024-01-02 08:31 | Outpatient (AMB) | payer OTHER, SELFPAY ==
--- NOTE | 2024-01-02 09:15 | AM.OFFWIN_ITS ---
Intake Vital Signs 01/02/24 09:17 Weight 188 lb BP 118/70 Blood Pressure Location Rt brachial Position Sitting Pulse 71 Pulse Source Pulse Oximeter Pulse Oximetry (%) 98 Oxygen Delivery Method Room Air Intake Visit Reasons: EP severe pain on RT hand & LT ankle Intake Note: Patient here for right hand pain that has been present for about 3 weeks and left ankle pain Patient Tobacco Use Status: Never used Tobacco Allergies No Known Allergies [No Known Allergies*] Allergy (Verified 01/02/24 09:18) Do you need a note to return to daycare/school/sports/work: No HPI HPI Comments History of Present Illness Details Patient is a 63-year-old female complaining of 3 weeks of pain and stiffness in her right hand, 3rd digit. She states that she is unable to squeeze the ball she normally squeezes with her right hand. She states that she can not close her fist completely. She denies any injury to her right hand and she thinks it is just arthritis but it she is requesting an x-ray to verify. She is also complaining of left foot pain. She states this pain has been going on for ?months? she denies any injury to her left foot, she is able to move her ankle in all directions but she states when you push on a very particular spot at the back of her heel, it is painful. She has tried taking ibuprofen with no relief in her symptoms. [facility] Medical History (Updated 01/02/24 @ 09:47 by Milagro Grimaldo PA-C) Thickened endometrium Hypothyroidism Asthma Chronic GERD Headache syndrome Surgical History History of dilatation and curettage History of endometrial biopsy History of tubal ligation Family History Father CVD (cardiovascular disease) Arthritis Mother Lung cancer Brother Esophageal cancer Mental health disorder Sister Throat cancer Social History Household Members: None Housing: Apartment Alcohol intake: current Alcohol intake frequency: holidays/special occasions only Patient Tobacco Use Status: Never used Tobacco e-Cigarette/Vaping Use: Never Used service: No Current occupational 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 Sexual orientation: Straight/Heterosexual Gender identity: Female Cognitive needs: No Hearing needs: No Vision needs: Yes Review of Systems Const All systems reviewed & are unremarkable except as noted in HPI and below Physical Exam Vital Signs: Last Vital Signs Pulse 71 01/02/24 09:17 BP 118/70 01/02/24 09:17 Pulse Ox 98 01/02/24 09:17 Oxygen Delivery Method Room Air 01/02/24 09:17 Const General: cooperative, healthy appearing, comfortable and no acute distress Orientation/consciousness: patient oriented x3 Limitations: ambulation with cane HEENT Head: Yes normal to inspection Resp Effort & Inspection: normal respiratory effort and able to speak in complete sentences Neuro General: patient oriented x3 Extrem Right upper extremity: Extremity exam: right hand Details: normal to inspection, normal capillary refill, neuromotor exam abnormal (unable to completely close fist), neurosensory exam normal, tendon exam normal, tenderness Location: of the 3rd digit Location: at the MCP joint and no swelling; no abrasions, no lacerations and no ecchymosis Right lower extremity: ankle Details: normal to inspection, tenderness Location: of the achilles tendon (base has ttp), no edema and normal ROM; no unusual warmth, no abrasions, no lacerations, no ecchymosis and achilles tendon exam normal Assessment & Plan Assessment & Plan (1) Pain involving joint of finger of right hand: Code(s): M25.541 - Pain in joints of right hand Plan: We will get an x-ray today, sent diclofenac to pharmacy as this is likely arthritis. (2) Achilles tendinitis, left leg: Code(s): M76.62 - Achilles tendinitis, left leg Plan: Recommended rest and using diclofenac. If no improvement of her symptoms gradua lly over the next month, she should follow up with her PCP for further management. Plan Likely arthritis, we will get an x-ray. Orders: Orders XR hand RT min 3V Today M79.641 - Pain in right hand Medications: New diclofenac sodium 50 mg PO Q12H PRN 20 tabs 0RF pain Coding Level of Care Code Est Pt Level 4 (93754) Diagnoses Pain involving joint of finger of right hand M25.541 Achilles tendinitis, left leg M76.62
[2024-01-02 09:17] VITALS: BP 118/70; PULSE 71; O2SAT 98
== END 2024-01-02 09:48 | disposition home or self-care (01) ==
PROVIDERS: PCP Internal Medicine; Visit Provider Physician Assistant
DX: M25.541 Pain in joints of right hand (principal); M76.62 Achilles tendinitis, left leg

== ENCOUNTER 2024-01-02 08:31 | Outpatient (REF) | payer OTHER, SELFPAY ==
--- NOTE | ~2024-01-02 | XR_ITS ---
EXAMINATION: XR HAND, RIGHT CLINICAL INFORMATION: M79.641 - Pain in right hand COMPARISON: November 30, 2023 TECHNIQUE: PA, lateral, and oblique views of the right hand. FINDINGS: The bones and soft tissues are normal. No fracture. Alignment is anatomic. Joint spaces are maintained. No erosions or soft tissue calcifications. XR/XR hand RT min 3V IMPRESSION: Normal right hand. Electronically signed by: Caesar Gomez MD 01/02/2024 07:15 PM [place]
== END 2024-01-02 08:32 | disposition home or self-care (01) ==
LOC: HO.HMGCX 08:31
PROVIDERS: PCP Internal Medicine; Visit Provider Physician Assistant
DX: M79.641 Pain in right hand (principal); M25.541 Pain in joints of right hand; M76.62 Achilles tendinitis, left leg
CPT/HCPCS: 73130; 99212

== ENCOUNTER 2024-01-22 07:39 | Outpatient (AMB) | payer OTHER, SELFPAY ==
[2024-01-22 07:42] VITALS: BP 104/64; PULSE 71; O2SAT 96; BMI 34.1
--- NOTE | 2024-01-22 07:42 | A.OFFVIS_ITS ---
Vital Signs 01/22/24 07:42 Height 5 ft 2 in Weight 186 lb 8.177 oz BMI 34.1 BP 104/64 Blood Pressure Location Rt brachial Position Sitting Pulse 71 Pulse Source Pulse Oximeter Pulse Oximetry (%) 96 Oxygen Delivery Method Room Air Intake Visit Reasons: BL hand Pain/lm Intake Note: Patient present today for BL hand pain. Commercial Plumber Required: No Accompanied by: Self / Same As Patient Allergies No Known Allergies [No Known Allergies*] Allergy (Verified 01/22/24 07:48) Medication List - Last Reconciled 01/22/24 by Les Torrez MD albuterol sulfate 90 mcg/actuation 2 puffs inhalation Q4-6H PRN albuterol sulfate 0.63 mg (3 mL) inhalation QID PRN 30 days cetirizine 10 mg PO DAILY 90 days citalopram 30 mg PO DAILY clonazepam 0.5 mg PO BEDTIME PRN clotrimazole-betamethasone 1-0.05 % 1 appl topical BID 7 days compr.stocking,knee,long,large As directed cyclobenzaprine 5 mg PO BEDTIME PRN diclofenac sodium 50 mg PO Q12H PRN fluticasone propionate 50 mcg/actuation 1 spray intranasal DAILY 30 days Grab bar 1 long bar for in the shower, 2 regular bars for next to toilet and tub. ibuprofen 600 mg PO Q8H PRN levothyroxine 50 mcg PO DAILY 90 days lidocaine 5% 1 patch topical DAILY meclizine 25 mg PO TID nystatin 1 appl topical BID 7 days omeprazole 40 mg PO DAILY 90 days rosuvastatin (Crestor) 20 mg PO DAILY Shower Chair Shower chair with backrest [Updraft machine As directed] zolpidem 10 mg PO BEDTIME PRN HPI Comments Details: Patient referred back by her PCP for evaluation of multiple areas of pain. Lately she has been having pain in the back of her left heel as well as pain follow-up her right hand. She has difficulty closing her right hand. This lasts throughout the day. Prescribed diclofenac 50 mg tablets, she states that it works for some time then the pain returns. Initial history: This is a 62-year-old female who presents for evaluation of multiple joint pain. Patient states that has had arthritis for years. She has had bilateral shoulder pain before and she received 2 cortisone injections in her right shoulder and 1 injection in her left shoulder years ago which helped. Majority of her pain is in her lower back radiating to her right buttock and her right groin. Pain is intermittent and she cannot think of any particular activity that makes it better or worse. She went to the emergency room once and she was prescribed a muscle relaxant which provides minimal relief. She does not recall ever being evaluated by Pain Management [facility] Medical History Thickened endometrium Hypothyroidism Asthma Chronic GERD Headache syndrome Surgical History History of dilatation and curettage History of endometrial biopsy History of tubal ligation Family History Father CVD (cardiovascular disease) Arthritis Mother Lung cancer Brother Esophageal cancer Mental health disorder Sister Throat cancer Social History Household Members: None Housing: Apartment Alcohol intake: current Alcohol intake frequency: holidays/special occasions only Patient Tobacco Use Status: Never used Tobacco e-Cigarette/Vaping Use: Never Used service: No Current occupational 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 Sexual orientation: Straight/Heterosexual Gender identity: Female Cognitive needs: No Hearing needs: No Vision needs: Yes Female Reproductive History Menstrual control method: permanent sterilization Permanent Sterilization: BTL Total pregnancies: 8 Full term: 4 Number of Living Children: 4 Ab spontaneous: 4 Review of Systems Musc Reports arthralgias, Reports limited range of motion and Reports stiffness Physical Exam Vital Signs: Last Vital Signs Pulse 71 01/22/24 07:42 BP 104/64 01/22/24 07:42 Pulse Ox 96 01/22/24 07:42 Oxygen Delivery Method Room Air 01/22/24 07:42 BMI result Body Mass Index 34.1 Const General: cooperative, healthy appearing and comfortable Nutritional Appearance: obese Orientation/consciousness: patient oriented x3 Limitations: no limitations HEENT Head: Yes normocephalic and Yes atraumatic Mouth: moist mucous membranes Resp Effort & Inspection: normal respiratory effort and able to speak in complete sentences Neuro General: patient oriented x3 Extrem Other: Mild osteoarthritic changes of both hands with no swollen joints Right 3rd flexor tendon tenderness, pain with flexion No obvious triggering detected Tenderness at the insertion site of her Achilles into the calcaneus left foot No significant swelling Assessment & Plan Assessment & Plan (1) Right hand tendonitis: Code(s): M77.8 - Other enthesopathies, not elsewhere classified Category: Medical Plan: Right 3rd finger. Likely overuse tendonitis, referred to OT. Voltaren gel trial, consider finger splints, if no improvement, advised patient to call the clinic and we can schedule her for an injection (2) Achilles tendinitis, left leg: Code(s): M76.62 - Achilles tendinitis, left leg Category: Medical Plan: Referred to PT Plan I spent 15 minutes reviewing patient's chart, evaluating patient, placing orders, counseling patient and documenting in the chart Orders: Orders OT Evaluation and Treatment Today M77.8 - Other enthesopathies, not elsewhere classified PT Evaluation and Treatment Today M76.62 - Achilles tendinitis, left leg Coding Level of Care Code Est Pt Level 3 (42272) Diagnoses Right hand tendonitis M77.8 Achilles tendinitis, left leg M76.62
== END 2024-01-22 08:09 | disposition home or self-care (01) ==
PROVIDERS: PCP Internal Medicine; Visit Provider Student in an Organized Health Care Education/Training Program
DX: M77.8 Other enthesopathies, not elsewhere classified (principal); M76.62 Achilles tendinitis, left leg
CPT/HCPCS: 99213

== ENCOUNTER → 2024-01-22 07:39 | Outpatient (BNVA) | payer OTHER, SELFPAY | PROVIDERS: PCP Internal Medicine; Visit Provider Student in an Organized Health Care Education/Training Program | DX: M77.8 Other enthesopathies, not elsewhere classified (principal); M76.62 Achilles tendinitis, left leg | CPT/HCPCS: 99212 ==

== ENCOUNTER 2024-02-16 13:59 | Outpatient (RCR) | payer OTHER, SELFPAY ==
--- NOTE | 2024-02-05 14:11 | MHC.OT.EP ---
[address] [phone] Occupational Therapy Plan of Care Patient Name: Shireen Shultz Date of Evaluation: 02/05/24 Diagnosis: R HAND TENDONITIS Pain Location: R MF 8/10 AT REST 9/10 WITH USE Pain Score: 9 Pain Scale Used: Numeric (0 - 10) Aggravating Factors: COLD WEATHER, NIGHTIME/ HEATER HELPER FORGE, GRASPING ITEMS Alleviating Factors: USING VOLTAREN GEL, HEAT PRN Assessment: MS SHULTZ REPORTS PAIN IN R MF FOR ABOUT SIX WEEKS. SHE REPORTS THE PAIN CAME ON SUDDENLY AND GRADUALLY WORSENED. IT IS WORSE IN THE EVENING AND UPON WAKING IN THE AM. HER PAIN IS SHARP AND ON THE VOLAR > DORSAL ASPECT OF HER MCP. SHE IS UNABLE TO MAKE A FIST OR FULLY STRAIGHTEN HER MIDDLE FINGER. AN 80% LIMITATION IS REPORTED PER QUICK DASH. HER DAUGHTER IS HER TAX COMPLIANCE OFFICER AND IS ASSISTING WITH MOST ADLs AND IADLs. SKILLED OT IS WARRANTED TO ADDRESS PAIN, ROM, STRENGTH AND COORDINATION. 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 Thank you once again for your referral.
== END 2024-03-22 11:20 | disposition home or self-care (01) ==
LOC: HO.OT 13:59
PROVIDERS: PCP Internal Medicine; Visit Provider Student in an Organized Health Care Education/Training Program
DX: M77.8 Other enthesopathies, not elsewhere classified (principal)
CPT/HCPCS: 97035; 97110; 97140; 97166; 97760

== ENCOUNTER 2024-02-19 13:57 | Outpatient (RCR) | payer OTHER, SELFPAY ==
--- NOTE | 2024-02-12 14:30 | MHC.PT.EP ---
[facility] [place] Office [place] Office [place] Office [address] Rebeca Schmidt [address] [phone] F: [phone] F: [phone] F: [phone] F: [phone] Physical Therapy Plan of Care Date of Evaluation: 02/12/24 Date of Surgery: N/A Diagnosis: LEFT ACHILLES TENDONITIS (KP) Assessment: DANI IS A PLEASANT 63 YO FEMALE REFERRED TO PT FOR DIAGNOSIS OF LEFT ACHILLES TENDONITIS. SHE REPORTS SYMPTOMS BEGAN ABOUT 2 YEARS AGO, GETTING WORSE AND WORSE. SHE REPORTS NO PREVIOUS INTERVENTIONS TO DATE. HEAT/WARM SOAKS RELIEVE SYMPTOMS, MS CREAMS HELP BUT SOON SHE STARTS WALKING SYMPTOMS RETURN AND AFTER ABOUT 1/2 HOUR SYMPTOMS BECOME TOO PAINFUL AND IF SHE STOPS TO REST IT WILL BECOME SLIGHTLY BETTER. SHE INDICATES PAIN IN LEFT ACHILLES AND LATERAL HEEL. REPORTS CRAMPING IN CALF AND SOME TRANSIENT NUMBNESS IN FOOT. LIVES INDEPENDENTLY IN AN APARTMENT WITH A FEW STAIRS TO ENTER WHICH SHE PERFORMS WITH NON-RECIPROCAL GAIT, STATES SHE HAS GRAB BARS FOR TOILET AND SHOWER. DAUGHTER LIVES LOCALLY AND IS AVAILABLE TO ASSIST. SHE REPORTS SHE ALSO HAS VERTIGO TYPE SYMPTOMS. (REQUEST SENT TO DR. ARENAS TO BPPV SCREEN). UPON EXAM IMPAIRMENTS INCLUDE DECREASED ROM OF ANKLE WITH INCREASED EDEMA DECREASED STRENGTH OF ANKLE AND LE, ALTERED GAIT AND BALANCE, INCREASED PAIN. FUNCTIONAL LIMITATIONS INCLUDE DECREASED TOLERANCE TO STATIC STANDING, WALKING GREATER THAN 10 MINS, PERFORMING NON-RECIPROCAL GAIT ON STAIRS. SHE REPORTS DECREASED TOLERANCE TO HOMEMAKING AND SELF CARE TASKS, DECREASED ABILITY TO PERFORM LIFTING, BENDING AND CARRYING. SHE REPORTS DECREASED PARTICIPATION IN IN COMMUNITY AND RECREATIONAL ACTIVITIES. Frequency and Duration: The patient will be seen 2 X WEEK FOR 4 WEEKS Short Term Goals: INITIATE HEP AND SELF MANAGEMENT OF SYMPTOMS Skilled Nursing Goals: TO INCREASED STRENGTH TO 5/5 CLIFTON LE IN ORDER TO PRFORM RECIPROCAL GAIT ON STAIRS TO INCREASE ROM TO WNLs, EQUAL [place] TO DEMONSTRATE ABILITY TO AMBULATE GREATER THAN 20 MINS WITH PAIN NO GREATER THEN 2/10 INDEPENDENT HEP AND SELF MANAGEMENT OF SYMPTOMS Treatment Plan: Modalities to reduce pain, spasms and effusion. Manual therapy to restore motion and function. Therapeutic exercise to improve strength and flexibility. Neuromuscular re-education for posture and balance. Therapeutic activities to return to functional activities of daily living. Electronically signed by: NALDO KIM PT DPT Please sign and return to therapist. Thank you for your referral.
--- NOTE | 2024-03-15 14:36 | MHC.PT.DC ---
[facility] [place] [facility] [place] [facility] [place] [facility] [address] Rebeca Schmidt [address] [phone] F: [phone] F: [phone] F: [phone] F: [phone] Physical Therapy Discharge Report Diagnosis: LEFT ACHILLES TENDONITIS (KP) Date of Surgery: N/A Date of Evaluation: 02/12/24 Date of Discharge: 03/15/24 Treatments to Date: 2 Cancellations to Date: 0 No Shows to Date: 0 Discharge Status: Patient Elected to Stop Discharge Summary: Pt attended 2 visits of PT, cancelled remaining visits. Current status is unknown Electronically signed by: Caroline Hawkins PT DPT Please sign and return to therapist. Thank you for your referral.
== END 2024-03-15 14:36 | disposition home or self-care (01) ==
LOC: HO.PT 13:57
PROVIDERS: PCP Internal Medicine; Visit Provider Student in an Organized Health Care Education/Training Program
DX: M76.62 Achilles tendinitis, left leg (principal)
CPT/HCPCS: 97110; 97161; 97535

== ENCOUNTER 2024-03-18 10:16 | Outpatient (REF) | payer OTHER, SELFPAY ==
--- NOTE | ~2024-03-18 | US_ITS ---
CLINICAL HISTORY: D25.9 - Leiomyoma of uterus, unspecified US pelvis transvaginal Comparison: US/SR - US PELVIC AND TRANSVAGINAL - 10/12/23 10:20 EDT US/MS/SR - US PELVIC AND TRANSVAGINAL - 05/11/23 10:24 EDT US/SR - US PELVIC AND TRANSVAGINAL - 05/03/21 13:15 EDT Findings: Transvaginal scanning performed. Anteverted uterus is 12.4 cm length. The myometrium is heterogeneous. There is a circumscribed lesion within the anterior aspect of the uterine body abutting the endometrium measuring 11 x 7 x 9 mm. This is similar to the prior exam. Additional hypoechoic lesion within the posterior aspect of the uterine body measures 9 x 7 x 8 mm. Endometrium 7 mm thickness. Polypoid lesion distending the endometrium within the uterine fundus measuring 7 x 3 x 6 mm, possibly an endometrial polyp. This was not appreciated on the patient's prior exam. Right ovary 1.6 x 1.9 x 1.2 cm. Left ovary 1.3 x 2.3 x 1.2 cm. Normal color Doppler of both ovaries. Trace free fluid. IMPRESSION: 1. Heterogeneous myometrium. Small relatively well-circumscribed masses are likely fibroids. 2. Polypoid lesion within the endometrium not seen on the prior exams. Consider hysteroscopy or pelvic MRI. This document has been electronically signed by: Irena Mathew MD on 03/19/2024 06:43:16
--- OUTSIDE RECORDS SUMMARY | 2024-03-18 11:02 | XMS_ITS | Clinical Summary ---
Author Organization [facility] Address [address] [place] [address] Care Team Providers Care Route Contractor Name Role Phone Unavailable Primary Care Provider Unavailabl e Source Comments PLEASE NOTE, if this patient is a minor, it may be UNLAWFUL to discuss sensitive information that is contained in these records (such as FAMILY PLANNING, MENTAL HEALTH or SUBSTANCE ABUSE) with the minor patient's parent or other person without the patient's specific authorization.[facility] Allergies No known active allergies Medications chlorhexidine gluconate (PERIDEX) 0.12 % solutionIndicat ions:Gum disease Swish and spit 15 mL 2 (two) times daily 886.88 mL 10/17/2020 Active ibuprofen 600 mg tabletIndicatio ns:Pain, dental Take 1 Tablet by mouth 4 (four) times daily as needed for mild pain 20 Tablet 07/08/2022 Active clindamycin (CLEOCIN) 300 mg capsuleIndicati ons:Pain, dental Take 1 Capsule by mouth 3 (three) times daily 21 Capsule 07/08/2022 Active Social History Tobacco Use Types Packs/Day Years Used Date Smoking Tobacco: Never Passive Smoke Exposure: Never Smokeless Tobacco: Never Tobacco Cessation:Counseling Given: Not Answered Social Connections Answer Date Recorded Connectedness 0 11/02/2023 Financial Resource Strain Answer Date R ecorded Financial Resource Strain 0 2022 Stress Answer Date Recorded Stress 0 03/14/2022 Physical Activity Answer Date Recorded Physical Activity 0 03/14/2022 Food Insecurity Answer Date Recorded Food 0 11/09/2023 Transportation Needs Answer Date Record ed Transportation 0 03/14/2022 Housing Stability Answer Date Recorded Housing 0 03/14/2022 Safety and Environment Answer Date Fredis rded Safety 0 03/14/2022 Utilities Answer Date Recorded Utilities 0 03/14/2022 Employment Answer Date Recorded Stress 0 11/02/2023 Comments Unknown Sex and Gender Information Value Date Recorded Sex Assigned at Not on file Legal Sex Female 8:10 AM PDT Gender Identity Not on file Sexual Orientation Not on file Last Filed Vital Signs Vital Sign Reading Time Taken Comments Blood Pressure 130/88 11/28/2023 11:16 AM EDT Pulse 78 11/28/2023 11:16 AM EDT Temperature - - Respiratory Rate - - Oxygen Saturation - - Inhaled Oxygen Concentration - - Weight - - Height - - Body Mass Index - - Plan of Treatment Health Maintenance Due Date Last Done Comments Diabetes Screening 1960 HPV Screening 1960 Hepatitis C Screening 1959 Lipid Screening 1959 Pap + HPV 1959 HIV Screening 04/28/1974 Cervical Cancer Screening 04/28/1980 Pap Smear 04/28/1980 Breast Cancer Screening (Mammogram) 1999 CT Colonography 04/28/2004 Colonoscopy 04/28/2004 Colorectal Cancer Screening 04/28/2004 FIT/gFOBT 04/28/2004 Fecal DNA 04/28/2004 Flexible Sigmoidoscopy 04/28/2004 Imm-Zoster, Recombinant (1 of 2) 04/28/2009 Imm-DTaP/Tdap/Td (2 - Td or Tdap) 11/14/2018 009 Dental Prophy 03/16/2023 03/14/2022 [id number] ( season) 2023 Imm-Influenza (#1) 2023 Alcohol and Drug Screen 02/14/2024 Depression Annual Screen 02/14/2024 Hypertension Screening (#1) 11/27/2024 Tobacco Screening 11/27/2024 11/28/2023 Dental BW 11/29/2024 11/28/2023, 03/14/2022 Dental Examination 11/29/2024 11/28/2023, 03/14/2022 Dental Perio Charting 11/29/2024 11/28/2023 Dental FMX/Pano 11/29/2028 11/28/2023 Cervical Ablation/Cold-Knife Conization Discontinued Cervical Cryotherapy Discontinued Colposcopy Discontinued Endometrial Biopsy Discontinued Excision/Leep Discontinued HPV Genotyping Discontinued Vaginal Pap Discontinued Vulvoscopy Discontinued Procedures Procedure Name Priority Date/Time Associated Diagnosis Comments COMP PERIODONTAL EVALUATION - NEW/EST PATIENT Routine 11/28/2023 11:00 AM EDT Caries of dentin INTRAORAL - COMP SERIES OF RADIOGRAPHIC IMAGES Routine 11/28/2023 11:00 AM EDT Caries of dentin PERIODIC ORAL EVALUATION ESTABLISHED PATIENT Routine 11/28/2023 11:00 AM EDT Caries of dentin PROPHYLAXIS - ADULT Routine 03/14/2022 9 :40 AM EST Chronic periodontitis, generalized, moderate from Last 3 Months or Most Recently Relevant to Health Maintenance Insurance [place] MEDICA[place] DENTAL [facility]
== END 2024-03-18 10:17 | disposition home or self-care (01) ==
LOC: HO.US 10:16
PROVIDERS: PCP Internal Medicine; Visit Provider Advanced Practice Midwife
DX: D25.9 Leiomyoma of uterus, unspecified (principal)
CPT/HCPCS: 76830; 76856

== ENCOUNTER → 2024-03-18 10:18 | Outpatient (BNV) | payer OTHER, SELFPAY | PROVIDERS: PCP Internal Medicine; Visit Provider Radiology Diagnostic Radiology | DX: D25.9 Leiomyoma of uterus, unspecified (principal) | CPT/HCPCS: 76830; 76856 ==

== ENCOUNTER 2024-03-20 11:03 | Outpatient (REF) | payer OTHER, SELFPAY ==
--- OUTSIDE RECORDS SUMMARY | 2024-03-20 13:38 | XMS_ITS | Clinical Summary ---
Author Organization [facility] Address [address] [place] [address] Care Team Providers Care Stem Processing Machine Operator Name Role Phone Unavailable Primary Care Provider [...] Tdap) 11/14/2018 009 Dental Prophy 03/16/2023 03/14/2022 [id number] ( season) 2023 Imm-Influenza (#1) 2023 Alcohol [...] Most Recently Relevant to Health Maintenance Insurance [place] MEDICAID DENT[place] [facility]
[2024-03-21 12:34] LABS: Bacterial Vaginosis PCR NEGATIVE (Negative); Candida Group PCR NOT DETECTED (Not Detect); Candida glab krusei PCR NOT DETECTED (Not Detect); Trichomonas vaginalis PCR NOT DETECTED (Not Detect)
== END 2024-03-20 11:04 | disposition home or self-care (01) ==
LOC: HO.LNP 11:03
PROVIDERS: PCP Internal Medicine; Visit Provider Advanced Practice Midwife
DX: N89.8 Other specified noninflammatory disorders of vagina (principal)
CPT/HCPCS: 81515; 99212

== ENCOUNTER 2024-06-12 09:16 | Outpatient (REF) | payer OTHER, SELFPAY ==
--- OUTSIDE RECORDS SUMMARY | 2024-06-12 09:51 | XMS_ITS | Clinical Summary ---
Author Organization [facility] Address [address] [place] [address] Care Team Providers Care Plant Inspector Name Role Phone Unavailable Primary Care Provider [...] Health Maintenance Due Date Last Done Comments Anxiety Screening 1959 Diabetes Screening 1959 Hepatitis C Screening 1959 Lipid Screening 1959 HIV Screening 04/28/1974 Breast Cancer Screening (Mammogram) 1999 CT Colonography 04/28/2004 Colonoscopy 04/28/2004 Colorectal Cancer Screening 04/28/2004 FIT/gFOBT 04/28/2004 Fecal DNA 04/28/2004 Flexible Sigmoidoscopy 04/28/2004 Imm-Pneumococcal 65+ (1 of 1 - PCV) 04/28/2009 Imm-Zoster, Recombinant (1 of 2) 04/28/2009 Imm-DTaP/Tdap/Td (2 - Td or Tdap) 11/14/2018 009 Dental Prophy 03/16/2023 03/14/2022 [id number]-42 (1 - season) 2023 Imm-Influenza (#1) 2023 Alcohol and Drug Screen 02/14/2024 Depression Annual Screen 02/14/2024 Bone Density Screening 04/28/2024 Falls Prevention 04/28/2024 Hypertension Screening (#1) 11/27/2024 Tobacco Screening 11/27/2024 11/28/2023 Dental BW 11/29/2024 11/28/2023, 03/14/2022 Dental Examination 11/29/2024 11/28/2023, 03/14/2022 Dental Perio Charting 11/29/2024 11/28/2023 Dental FMX/Pano 11/29/2028 11/28/2023 Procedures Procedure Name Priority Date/Time Associated Diagnosis [...] Most Recently Relevant to Health Maintenance Insurance [place] MED[place] [facility] [place] [id number]
== END 2024-06-12 09:17 | disposition home or self-care (01) ==
LOC: HO.MAMMO 09:16
PROVIDERS: PCP Internal Medicine; Visit Provider Internal Medicine
DX: Z13.89 Encounter for screening for other disorder (principal)

== ENCOUNTER 2024-07-15 06:44 | Outpatient (REF) | payer OTHER, SELFPAY ==
[2024-07-15 06:53] LABS: MANUAL DIFF FLAG NO
[2024-07-15 07:24] LABS: Basophils Percent Auto 0.6 % (0-2); Eosinophils Absolute Auto 0.5 X10*3/uL (0.0-0.4); Eosinophils Percent Auto 7.4 % (0-4); Hematocrit 44.3 % (37.0-47.0); Hemoglobin 14.1 g/dl (12.0-16.0); Imm Gran Abs Auto 0.02 X10*3/uL (0.00-0.03); Imm Gran Pct Auto 0.3 % (0.0-0.4); Lymphocytes Absolute Auto 2.9 X10*3/uL (1.2-4.9); Lymphocytes Percent Auto 42.7 % (20-40); Mean Corpuscular HGB Conc 31.8 g/dl (31.0-35.0); Mean Corpuscular Hemoglobin 27.9 pg (27.0-33.0); Mean Corpuscular Volume 87.5 fL (80.0-98.0); Mean Platelet Volume 10.5 fL (9.4-12.3); Monocytes Absolute Auto 0.6 X10*3/uL (0.1-1.2); Monocytes Percent Auto 8.6 % (2-11); Neutrophils Absolute Auto 2.7 x10*3/uL (2.0-8.3); Neutrophils Percent Auto 40.4 % (45-73); Platelet Count 268 X10*3/uL (160-400); Red Blood Count 5.06 X10*6/uL (4.20-5.50); Red Cell Distribution Width 13.8 % (11.0-16.0); White Blood Count 6.7 X10*3/uL (4.8-10.8)
[2024-07-15 07:51] LABS: Alanine Aminotransferase 14 U/L (0-31); Alkaline Phosphatase 98 U/L (39-117); Anion Gap 11 (12-20); Aspartate Amino Transferase 22 U/L (5-31); Bilirubin Total 0.3 mg/dL (0.0-1.0); Blood Urea Nitrogen 12 mg/dL (9-16); Calcium 9.4 mg/dL (8.4-10.2); Carbon Dioxide 26 mmol/L (22-29); Chloride 109 mmol/L (96-108); Cholesterol 207 mg/dL (<200); Estimated Glomerular Filt Rate > 60; Glucose Fasting 92 mg/dL (60-99); HDL Cholesterol 70 mg/dL (>40); LDL Cholesterol Calculated 116 mg/dL (<100); Potassium 3.8 mmol/L (3.3-5.1); Sodium 142 mmol/L (135-145); Triglycerides 107 mg/dL (<150)
[2024-07-15 08:09] LABS: TSH reflex Free T4 2.35 uIU/mL (0.32-4.0); Vitamin D 25-OH Total 11.5 ng/mL (>30)
== END 2024-07-15 06:45 | disposition home or self-care (01) ==
LOC: HO.LAB 06:44
PROVIDERS: PCP Internal Medicine; Visit Provider Internal Medicine
DX: Z00.00 Encounter for general adult medical examination without abnormal findings (principal); E78.5 Hyperlipidemia, unspecified; E03.9 Hypothyroidism, unspecified; E55.9 Vitamin D deficiency, unspecified
CPT/HCPCS: 36415; 80053; 80061; 82306; 84443; 85025

== ENCOUNTER 2024-07-18 12:22 | Outpatient (AMB) | payer OTHER, SELFPAY ==
[2024-07-18 13:14] VITALS: BP 106/72; PULSE 51; RESP 18; TEMP 36.6; O2SAT 97; BMI 34.4
--- NOTE | 2024-07-18 13:14 | A.OFFPC_ITS ---
Vital Signs 07/18/24 13:14 Height 5 ft 2 in Weight 188 lb BMI 34.4 BP 106/72 Blood Pressure Location Lt brachial Position Sitting Respiration 18 Pulse 51 Pulse Source Pulse Oximeter Temp 97.9 F Temp Source Oral Pulse Oximetry (%) 97 Oxygen Delivery Method Room Air Intake Visit Reasons: annual exam Intake Note: Pt is here today for PE. Pt states that she has been having pain in her neck and pain in her L foot. Allergies No Known Allergies [No Known Allergies*] Allergy (Verified 07/18/24 13:21) Medication List - Last Reconciled 07/18/24 by Yessi Delaney MD albuterol sulfate 90 mcg/actuation 2 puffs inhalation Q4-6H PRN albuterol sulfate 0.63 mg (3 mL) inhalation QID PRN 30 days cetirizine 10 mg PO DAILY 90 days cholecalciferol (vitamin D3) 50 mcg PO DAILY citalopram 30 mg PO DAILY clonazepam 0.5 mg PO BEDTIME PRN clotrimazole-betamethasone 1-0.05 % 1 appl topical BID 7 days compr.stocking,knee,long,large As directed cyclobenzaprine 5 mg PO BEDTIME PRN diclofenac sodium 50 mg PO Q12H PRN fluticasone propionate 50 mcg/actuation 1 spray intranasal DAILY 30 days Grab bar 1 long bar for in the shower, 2 regular bars for next to toilet and tub. ibuprofen 600 mg PO Q8H PRN levothyroxine 50 mcg PO DAILY 90 days lidocaine 5% 1 patch topical DAILY meclizine 25 mg PO TID nystatin 1 appl topical BID 7 days omeprazole 40 mg PO DAILY 90 days rosuvastatin (Crestor) 20 mg PO DAILY Shower Chair Shower chair with backrest [Updraft machine As directed] zolpidem 10 mg PO BEDTIME PRN Tobacco use date assessed: 07/18/24 Fall risk assessment: No Falls in past year Last assessed Fall Risk: 07/18/24 Dental Screening Dental Screen Date: 07/18/24 Did you have a dental visit in the last 12 months?: Yes Did you have a dental problem in the last 6 months where you did not have access to dental care?: No Was dental information given to patient?: Patient has dentist HPI annual exam HPI Details Patient presents for physical. She complains of chronic neck pain and stiffness on and off for the last few weeks. She denies pain, weakness or numbness in upper extremities. [facility] Medical History (Updated 07/18/24 @ 13:56 by Yessi Delaney MD) Depression, major, recurrent, moderate Vitamin D deficiency Positive colorectal cancer screening using Cologuard test Fibroid Hypothyroidism Asthma Chronic GERD Headache syndrome Surgical History History of dilatation and curettage History of endometrial biopsy History of tubal ligation Family History Father CVD (cardiovascular disease) Arthritis Mother Lung cancer Brother Esophageal cancer Mental health disorder Sister Throat cancer Social History Household Members: None Housing: Apartment Alcohol intake: current Alcohol intake frequency: holidays/special occasions only Patient Tobacco Use Status: Never used Tobacco e-Cigarette/Vaping Use: Never Used service: No Current occupational status: retired Current occupation: [employer] Sexual orientation: Straight/Heterosexual Gender identity: Female Cognitive needs: No Hearing needs: No Vision needs: Yes Questionnaire PHQ-9 Over the last 2 weeks, how often have you been bothered by any of the following problems? 1. Little interest or pleasure in doing things: not at all 2. Feeling down, depressed, or hopeless: not at all 3. Trouble falling or staying asleep, or sleeping too much: not at all 4. Feeling tired or having little energy: not at all 5. Poor appetite or overeating: not at all 6. Feeling bad about yourself - or that you are a failure or have let yourself or your family down: not at all 7. Trouble concentrating on things, such as reading the newspaper or watching television: not at all 8. Moving or speaking so slowly that other people could have noticed. Or the opposite - being so fidgety or restless that you have been moving around a lot more than usual: several days 9. Thoughts that you would be better off or of hurting yourself in some way: not at all Total score: 1 Depression Screening Interpretation: Negative Depression Screening Done: Yes 05608 - PHQ-9 Billing: Yes Source: Developed by Drs. Kole Sarkar, Jennifer Brown, Christian Bautista and colleagues, with an educational harjit from [employer]. Thrive Questionnaire Date Thrive assessed: 07/18/24 I am a: Patient What is your living situation today?: I have a steady place to live Within the past 12 months, did the food you bought not last and you didn't have the money to get more?: Never true Within the past 12 months, did you worry whether your food would run out before you got money to buy more?: Never true Do you have trouble paying for medicines?: No Do you have trouble getting transportation to medical appointments?: No Do you have trouble paying your heating and electricity bill?: No Do you have trouble taking care of your child, family member or friend?: No Do you have trouble with day-to-day activities such as bathing, preparing meals, shopping, managing finances, etc.?: No Are you currently unemployed and looking for a job?: No Are you interested in more education?: No Please select the resources that you would like help with: None Currently or been in a relationship where the following occur: I choose not to answer THRIVE Score: 0 TAYE-7 AMB Questionnaire TAYE-7 Date TAYE - 7 assessed: 07/18/24 Feeling nervous, anxious, or on edge: 0 = Not at all Not being able to stop or control worryin = Not at all Worrying too much about different things: 0 = Not at all Trouble relaxin = Not at all Being so restless that it is hard to sit still: 0 = Not at all Becoming easily annoyed or irritable: 0 = Not at all Feeling afraid as if something awful might happen: 0 = Not at all Total TAYE-7 score (0-4 normal; 5-9 mild; 10-14 moderate; 15-21 severe): 0 Source: Developed by Drs. Kole Sarkar, Christian Bangura and colleagues, with an educational harjit from [employer]. TAYE-7 Assessment Billing TAYE-7 Assessment Tool: TAYE-7 Assessment 63292 Review of Systems Const All systems reviewed & are unremarkable except as noted in HPI and below Eyes Reports no additional complaints ENT Reports no additional complaints Card Reports no additional complaints Resp Reports no additional complaints GI Reports no additional complaints Reports no additional complaints Physical exam (Primary Care) Vital Signs: Last Vital Signs Temp 97.9 F 07/18/24 13:14 Pulse 51 07/18/24 13:14 Resp 18 07/18/24 13:14 BP 106/72 07/18/24 13:14 Pulse Ox 97 07/18/24 13:14 Oxygen Delivery Method Room Air 07/18/24 13:14 BMI result Body Mass Index 34.4 Tobacco/Smoking Status: Tobacco use Status Tobacco use date assessed 07/18/24 07/18/24 13:25 Patient Tobacco Use Status Never used Tobacco 07/18/24 13:25 e-Cigarette/Vaping Use Never Used 07/18/24 13:14 PHQ-9: PHQ-9 Score PHQ-9: Total score 1 07/18/24 13:25 Depression Screening Interpretation: Negative Thrive Assessment: Date of Thrive Assessment Date Thrive assessed 07/18/24 07/18/24 13:25 Currently or been in a relationship where the following occur: I choose not to answer Const General: no acute distress HENMT Head: Yes normal to inspection Ears: hearing grossly normal bilaterally Face and sinus: Yes normal facial exam Mouth: Normal oral and palatal mucosa present Throat: Yes posterior oropharynx normal Eyes General: appearance normal, both eyes and all related structures Neck Other: Paraspinal tenderness lower cervical region decreased range of motion in C-spine Neck: Yes supple and Yes lymphadenopathy Resp Effort & Inspection: normal respiratory effort Auscultation: clear to auscultation bilaterally Cardio Rhythm: regular rhythm Heart sounds: S1 normal heart sound present and S2 normal heart sound present GI Inspection: Yes normal to inspection Palpation (GI): Soft to palpation Percussion: Yes normal to percussion Auscultation: normal bowel sounds Coding Level of Care Code Est Pt Prev Care >65y(33196) Diagnoses Positive colorectal cancer screening using Cologuard test R19.5 Annual physical exam Z00.00 Depression, major, recurrent, moderate F33.1 Hypothyroidism E03.9 Hyperlipidemia E78.5 Vitamin D deficiency E55.9 Additional Codes TAYE-7 Assessment Billing - TAYE-7 Assessment Tool: TAYE-7 Assessment 84892 ([id number]) PHQ-9 - 03593 - PHQ-9 Billing: Yes ([id number]) Assessment & Plan Assessment & Plan (1) Positive colorectal cancer screening using Cologuard test: Comment: 05/05, patient refused colonoscopy. She is aware of possibility of undetected colon cancer. 07/14/23 pt agreed to colonoscopy, referral in the chart Code(s): R19.5 - Other fecal abnormalities Category: Medical Plan: Patient will call [facility] to schedule an appointment for colonoscopy (2) Annual physical exam: Code(s): Z00.00 - Encounter for general adult medical examination without abnormal findings Category: Medical Plan: Well-balanced diet regular physical activity discussed with the patient she is up-to-date with mammogram and Pap by early learning teacher (3) Depression, major, recurrent, moderate: Comment: f/u with psychiatry, controlled on citalopram Code(s): F33.1 - Major depressive disorder, recurrent, moderate Category: Medical Plan: Continue citalopram (4) Hypothyroidism: Code(s): E03.9 - Hypothyroidism, unspecified Category: Medical Plan: Continue levothyroxine follow-up in 1 year for PE (5) Hyperlipidemia: Comment: On Crestor Code(s): E78.5 - Hyperlipidemia, unspecified Category: Medical Plan: CONTINUE STATIN (6) Vitamin D deficiency: Code(s): E55.9 - Vitamin D deficiency, unspecified Category: Medical Plan: START 2000 IU VITAMIN D3 Orders: Orders Complete Blood Count Auto Diff 1 Year E55.9 - Vitamin D deficiency, unspecified, E78.5 - Hyperlipidemia, unspecified, Z00.00 - Encounter for general adult medical examination without abnormal findings Lipid Panel 1 Year E55.9 - Vitamin D deficiency, unspecified, E78.5 - Hyperlipidemia, unspecified, Z00.00 - Encounter for general adult medical examination without abnormal findings Comprehensive [place]. Panel Fast 1 Year E55.9 - Vitamin D deficiency, unspecified, E78.5 - Hyperlipidemia, unspecified, Z00.00 - Encounter for general adult medical examination without abnormal findings TSH reflex Free T4 1 Year E55.9 - Vitamin D deficiency, unspecified, E78.5 - Hyperlipidemia, unspecified, Z00.00 - Encounter for general adult medical examination without abnormal findings Vitamin D 25-OH Total 1 Year E55.9 - Vitamin D deficiency, unspecified, E78.5 - Hyperlipidemia, unspecified, Z00.00 - Encounter for general adult medical exam ination without abnormal findings Medications: New cholecalciferol (vitamin D3) 50 mcg PO DAILY 90 tabs 3RF
--- OUTSIDE RECORDS SUMMARY | 2024-07-18 14:27 | XMS_ITS | Clinical Summary ---
Author Organization [facility] Address [address] [place] [address] Care Team Providers Care Door Person Name Role Phone Unavailable Primary Care Provider [...] Tdap) 11/14/2018 009 Dental Prophy 03/16/2023 03/14/2022 [id number] (1 - season) 2023 Imm-Influenza (#1) 2023 [...] Most Recently Relevant to Health Maintenance Insurance [place] [facility] [place] [id number]
== END 2024-07-18 13:42 | disposition home or self-care (01) ==
LOC: HO.HMCC 12:23
PROVIDERS: PCP Internal Medicine; Visit Provider Internal Medicine
DX: R19.5 Other fecal abnormalities (principal); Z00.00 Encounter for general adult medical examination without abnormal findings; F33.1 Major depressive disorder, recurrent, moderate; E03.9 Hypothyroidism, unspecified; E78.5 Hyperlipidemia, unspecified; E55.9 Vitamin D deficiency, unspecified

== ENCOUNTER → 2024-07-18 12:22 | Outpatient (BNVA) | payer OTHER, SELFPAY | PROVIDERS: PCP Internal Medicine; Visit Provider Internal Medicine | DX: Z00.00 Encounter for general adult medical examination without abnormal findings (principal); R19.5 Other fecal abnormalities; F33.1 Major depressive disorder, recurrent, moderate; E03.9 Hypothyroidism, unspecified; E78.5 Hyperlipidemia, unspecified; E55.9 Vitamin D deficiency, unspecified | CPT/HCPCS: 96127; 99397 ==

== ENCOUNTER 2024-09-11 12:58 | Outpatient (AMB) | payer OTHER, SELFPAY ==
--- NOTE | 2024-09-11 12:59 | MHC.OFFVIS ---
Intake Visit Reasons: PMB Field Service Technician: Field Service Technician Present (Purvi) Accompanied by: Self / Same As Patient Allergies No Known Allergies (No Known Allergies*) Allergy (Verified 09/11/24 13:08) Is last menstrual period known: No Post menopausal: Yes Patient : No Do you need a note to return to daycare/school/sports/work: Yes (for surgery on monday) HPI Comments Details: The patient is presenting referred from Yasmin Philippe CNM regarding postmenopausal bleeding over the last year. 03/19/2024 pelvic ultrasound showed the following: Anteverted uterus is 12.4 cm length. The myometrium is heterogeneous. There is a circumscribed lesion within the anterior aspect of the uterine body abutting the endometrium measuring 11 x 7 x 9 mm. This is similar to the prior exam. Additional hypoechoic lesion within the posterior aspect of the uterine body measures 9 x 7 x 8 mm. Endometrium 7 mm thickness. Polypoid lesion distending the endometrium within the uterine fundus measuring 7 x 3 x 6 mm, possibly an endometrial polyp. This was not appreciated on the patient's prior exam. Right ovary 1.6 x 1.9 x 1.2 cm. Left ovary 1.3 x 2.3 x 1.2 cm. Normal color Doppler of both ovaries. Trace free fluid. Last co testing in 04/06 was negative [facility] Medical History Depression, major, recurrent, moderate Vitamin D deficiency Positive colorectal cancer screening using Cologuard test Fibroid Hypothyroidism Asthma Chronic GERD Headache syndrome Surgical History History of dilatation and curettage History of endometrial biopsy History of tubal ligation Family History Father CVD (cardiovascular disease) Arthritis Mother Lung cancer Brother Esophageal cancer Mental health disorder Sister Throat cancer Social History Household Members: None Housing: Apartment Alcohol intake: current Alcohol intake frequency: holidays/special occasions only Patient Tobacco Use Status: Never used Tobacco e-Cigarette/Vaping Use: Never Used service: No 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 occupational 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 Sexual orientation: Straight/Heterosexual Gender identity: Female Cognitive needs: No Hearing needs: No Vision needs: Yes Female Reproductive History Menstrual Date of last menstrual period: 12/12/19 control method: none Total pregnancies: 2 Full term: 2 Date of last pap smear: 03/15/21 (negative pap smear, negative hpv ) Review of Systems Const All systems reviewed & are unremarkable except as noted in HPI and below Card Reports as per HPI and Reports no additional complaints Resp Reports as per HPI and Reports no additional complaints GI Reports as per HPI and Reports no additional complaints Reports as per HPI Physical Exam Const General: cooperative, healthy appearing and comfortable Resp Effort & Inspection: normal respiratory effort Auscultation: clear to auscultation bilaterally Percussion: percussion normal Cardio Palpation: normal PMI Rate: regular rate Rhythm: regular rhythm Heart sounds: no murmurs and no rubs Peripheral pulses: Peripheral pulses 2+ throughout GI Inspection: Yes normal to inspection Palpation (GI): Soft to palpation, nontender, no guarding, not rigid and No hepatosplenomegaly present Percussion: Yes normal to percussion Auscultation: normal bowel sounds Rectal Exam - Female: deferred General: Yes no CVA tenderness External Female Exam: normal external appearance and normal appearance of the urethra Speculum Exam - Vagina: normal appearance of the vagina, normal palpation, no lesions and no masses Speculum Exam - Cervix: normal appearance of the cervix, normal palpation, no lesions, no masses and nontender Bimanual exam- vagina & uterus: normal bimanual exam, normal palpation, uterine size normal, normal palpation, uterine shape normal, No Cervical tenderness present and non-tender Bimanual Exam- Adnexa, other: normal adnexae Back/Spine/Pelvis Back: no CVA tenderness Assessment & Plan Assessment & Plan (1) Postmenopausal bleeding: Code(s): N95.0 - Postmenopausal bleeding Category: Medical Plan: Discussed with the patient the pelvic ultrasound findings, the endometrial stripe thickenss measured by ultrasound was more than 4mm in addition to a polypoid lesion by ultrasound. The negative predictive value, positive predictive value, Sensitivity, specificity of using ultrasound measurement of endometrial stripe to detecting endometrial pathology including hyperplasia , polyp or cancer were discussed with the patient. Recommended to the patient that the next step is an endometrial sampling via hysteroscopy D&C possible polypectomy versus endometrial biopsy to r/o endometrial pathology including hyperplasia or cancer. All the pros and cons risks and benefits of each approach were discussed with the patient, endometrial biopsy being less invasive, office procedure with less sensitivity and inability diagnose a polyp and removal versus hysteroscopy done under anesthesia more invasive more sensitive to endometrial cancer and possibility of diagnosing and endometrial polyp with the possibility of polypectomy. All questions were answered pt verbalized understanding and decided to proceed with hysteroscopy D&C possible polypectomy/myomectomy. Discussed with the patient the procedure , all benefits and risks including but not limited to inability to complete the procedure , insufficient endometrial tissue for a complete evaluation of the endometrial cavity , bleeding, infection, possible need for blood transfusion with all its risk ( HIV,syphilis, Hepatitis, anaphylaxis shock, others..), injury to bladder, rectum, possible need for laparoscopy/laparotomy or hysterectomy. The patient verbalized understanding and signed the consent. Instructions given the patient to stay NPO after midnight the day prior to the procedure and to take only the specific medication (s) discussed the morning of the surgical procedure and to schedule a 2 week postoperative appointment (2) Uterine myoma: Code(s): D25.9 - Leiomyoma of uterus, unspecified Category: Medical Plan: The patient has a follow-up ultrasound scheduled on with a follow-up appointment with Yasmin Philippe CNM regarding uterine myoma.. Coding Level of Care Code Est Pt Level 3 (54607) Diagnoses Postmenopausal bleeding N95.0 Uterine myoma D25.9
--- OUTSIDE RECORDS SUMMARY | 2024-09-11 13:31 | XMS_ITS | Clinical Summary ---
Author Organization [facility] Address [address] [place] [address] Phone Care Team Providers Care Prorate Clerk Name Role Phone Mitra Brown MD Primary Care Provider [phone] Allergies No known active allergies Medications diclofenac potassium (CATAFLAM) 50 MG tablet Take 50 mg by mouth as needed. Active omeprazole (PRILOSEC) 20 mg TbEC Take 20 mg by mouth daily. Active citalopram (CELEXA) 20 MG tablet Take 20 mg by mouth nightly at bedtime. Active lovastatin (MEVACOR) 40 MG tablet Take 40 mg by mouth daily. Active levothyroxine (SYNTHROID, LEVOTHROID) 50 MCG tablet Take 50 mcg by mouth every morning. Active cetirizine (ZYRTEC) 10 MG tablet Take 10 mg by mouth daily. Active ondansetron (ZOFRAN) 4 MG tablet Take 1 tablet (4 mg total) by mouth every 8 (eight) hours as needed for nausea (headache). 30 tablet 5 2 Active naratriptan (AMERGE) 2.5 MG tablet Take 1 tablet (2.5 mg total) by mouth as needed for migraine. Take one (1) tablet at onset of headache; if returns or does not resolve, may repeat after 4 hours; do not exceed five (5) mg in 24 hours. 9 tablet 5 2 Active memantine (NAMENDA) 5 MG tablet Take 2 tablets (10 mg total) by mouth 2 (two) times a day. For headache prevention 120 tablet 2 Active Active Problems Problem Noted Date Diagnosed Date Vitamin D deficiency 07/02/2021 Migraine headache 07/02/2021 Immunizations Immunization Administration Dates Next Due Tdap 11/14/2008 Social History Tobacco Use Types Packs/Day Years Used Date Smoking Tobacco: Never Assessed Education Answer Date Recorded Are you interested in more education? Not on manoj e 06/11/2022 Are you concerned about learning? Not on file 06/11/2022 No 06/11/2022 No 06/11/2022 Digital Access Answer Date Recorded No 07/12/2022 No 07/12/2022 Reliable internet access at home? Not on file 07/12/2022 Device with a working camera? Not on file Comments Unknown Sex and Gender Information Value Date Recorded Sex Assigned at Female 01/18/2021 10:16 AM EST Legal Sex Female 10:19 AM EST Gender Identity Female 01/18/2021 10:16 AM EST Sexual Orientation Straight 01/18/2021 10 :16 AM EST Last Filed Vital Signs Vital Sign Reading Time Taken Comments Blood Pressure 130/78 07/02/2021 9:46 AM EDT Pulse 62 07/02/2021 9:46 AM EDT Temperature 35.9 C (96.7 F) 07/02/2021 9:46 AM EDT Respiratory Rate - - Oxygen Saturation - - Inhaled Oxygen Concentration - - Weight 82.6 kg (182 lb) 07/02/2021 9:46 AM EDT Height 157.5 cm (5' 2 ) 07/02/2021 9:46 AM EDT Body Mass Index 33.29 07/02/2021 9:46 AM EDT Plan of Treatment Health Maintenance Due Date Last Done Comments LIPID PANEL 1959 TSH LEVEL 1959 DEPRESSION SCREENING 1971 SMOKING Hx and SMOKELESS TOB ACCO SCREENING 04/28/1972 HEPATITIS C SCREENING 04/28/1977 HIV ONE-TIME SCREENING (18-6 5 YEARS) 04/28/1977 MAMMOGRAM 1999 COLOGUARD 04/28/2004 COLONOSCOPY 04/28/2004 COLORECTAL CANCER SCREENING 04/28/2004 FIT TEST 04/28/2004 FOBT 04/28/2004 SIGMOIDOSCOPY 04/28/2004 VIRTUAL COLONOSCOPY 04/28/2004 PNEUMOCOCCAL VACCINES (50+ y ears) (1 of 1 - PCV) 04/28/2009 ZOSTER VACCINES (1 of 2) 04/28/2009 Adult Td,Tdap Booster 11/14/2018 11/14/2008 COVID-19 VACCINE (2 - 2023-2 5 season) 2023 05/20/2020 OSTEOPOROSIS SCREENING INITI AL (ONE-TIME) 04/28/2024 RSV VACCINE (1 - 1-dose 75+ series) 04/28/2034 HEPATITIS A VACCINES Aged Out No long er eligible based on patient's age to complete this topic HIB VACCINES Aged Out No longer eligi ble based on patient's age to complete this topic MENINGOCOCCAL VACCINES (ACWY) Aged Out No longer eligible based on patient's age to complete this topic MENINGOCOCCAL VACCINES (B) Aged Out N o longer eligible based on patient's age to complete this topic Medical Devices Not on file Insurance [facility] [place] [address] [place] [address] [place] [address] [place] [address] [place] [address] [place] [address] [place] [address] [place] [address] [place] [address] [place] [address] [place] [address] [place] [address] [facility] Care Teams Prorate Clerk Relationship Specialty Start Date End Date Mitra Brown MD [address] [id number] PCP - General Internal Medicine 07/02/21 Additional Source Comments The information contained in this document represents components of the legal health record. It is not the complete legal health record.[facility]
--- OUTSIDE RECORDS SUMMARY | 2024-09-11 13:31 | XMS_ITS | Clinical Summary ---
Author Organization [facility] Address [address] [place] [address] Care Team Providers Care Rental Car Deliverer Name Role Phone Unavailable Primary Care Provider [...] Fecal DNA 04/28/2004 Flexible Sigmoidoscopy 04/28/2004 Imm-Pneumococcal 50+ (1 of 1 - PCV) 04/28/2009 Imm-Zoster, Recombinant (1 of 2) 04/28/2009 Imm-DTaP/Tdap/Td (2 - Td or Tdap) 11/14/2018 009 Dental Prophy 03/16/2023 03/14/2022 [id number] (1 - season) 2023 Alcohol and Drug Screen 02/14/2024 Depression Annual Screen 02/14/2024 Bone Density Screening 04/28/2024 Falls Prevention 04/28/2024 Imm-Influenza (#1) 2024 Hypertension Screening (#1) 11/27/2024 Tobacco Screening 11/27/2024 [...] Most Recently Relevant to Health Maintenance Insurance [place] MEDICA[place] DENT[place] [facility] [place] [address]
== END 2024-09-11 13:44 | disposition home or self-care (01) ==
LOC: HO.HWS 12:58
PROVIDERS: PCP Internal Medicine; Visit Provider Obstetrics & Gynecology
DX: N95.0 Postmenopausal bleeding (principal); D25.9 Leiomyoma of uterus, unspecified
CPT/HCPCS: 99213

== ENCOUNTER → 2024-09-11 12:58 | Outpatient (BNVA) | payer OTHER, SELFPAY | PROVIDERS: PCP Internal Medicine; Visit Provider Obstetrics & Gynecology | DX: Z95.0 Presence of cardiac pacemaker (principal); D25.9 Leiomyoma of uterus, unspecified | CPT/HCPCS: 99212 ==

== ENCOUNTER 2024-09-13 07:26 | Day surgery (SDC) | payer OTHER, SELFPAY ==
--- OUTSIDE RECORDS SUMMARY | 2024-09-12 12:37 | XMS_ITS | Clinical Summary ---
Author Organization [facility] Address [address] [place] [address] Phone Care Team Providers Care Circuit Designer Name Role Phone Mitra Brown MD Primary Care Provider [phone] Allergies No known active allergies Medications diclofenac [...] Medical Devices Not on file Insurance [facility] [place] [address] [place] [address] [place] [address] [place] [address] [address] [place] [address] [address] [place] [address] [address] [place] [address] [place] [place] [address] [facility] ACO Care Teams Circuit Designer Relationship Specialty Start Date End Date Mitra Brown MD [address] [place] [id number] PCP - General Internal Medicine 07/02/21 Additional Source Comments The information contained in this document represents components of the legal health record. It is not the complete legal health record.[facility]
--- OUTSIDE RECORDS SUMMARY | 2024-09-12 12:37 | XMS_ITS | Clinical Summary ---
Author Organization [facility] Address [address] [place] [address] Care Team Providers Care Organizational Psychologist Name Role Phone Unavailable Primary Care Provider [...] Tdap) 11/14/2018 009 Dental Prophy 03/16/2023 03/14/2022 [id number] (1 - season) 2023 Alcohol and Drug [...] Most Recently Relevant to Health Maintenance Insurance [place] MEDICA[place] DENT[place] [facility] [place] [address]
[2024-09-13 07:39] VITALS: BMI 35.0
[2024-09-13 07:40] VITALS: BMI 35.0
[2024-09-13 07:51] VITALS: BP 137/83; PULSE 58; RESP 16; TEMP 36.1; O2SAT 98
[2024-09-13] MEDS: Lactated Ringers 1,000 ML 100 ML IVCONT (08:04)
--- NOTE | 2024-09-13 08:43 | P.CONAN_ITS ---
[facility] Active Problems Active Problems: All Active Problems (Updated 09/11/24 @ 13:22 by Grant Villeda MD) Uterine myoma (Acute) Neck pain (Acute) Fibroid (Acute) Right hand tendonitis (Acute) Achilles tendinitis, left leg (Acute) Pain involving joint of finger of right hand (Acute) Right hand pain (Acute) Bilateral hand pain (Acute) Postmenopausal bleeding (Acute) Vitamin D deficiency (Acute) Annual physical exam (Acute) Lumbar back pain with radiculopathy affecting lower extremity (Acute) Lumbar degenerative disc disease (Acute) Trochanteric bursitis of both hips (Acute) Benign positional vertigo (Acute) Positive colorectal cancer screening using Cologuard test (Acute) Arthralgia (Acute) Contusion of left leg (Acute) Skin lesion (Acute) Hyperlipidemia (Acute) Arthralgia (Acute) Osteoarthritis of left shoulder (Acute) Generalized anxiety disorder with panic attacks (Acute) Depression, major, recurrent, moderate (Acute) Obesity due to excess calories (Acute) Back pain (Acute) Environmental allergies (Acute) Rotator cuff tendonitis (Acute) Hypothyroidism (Acute) Asthma (Acute) Chronic GERD (Acute) Past Medical History Medical History Depression, major, recurrent, moderate Vitamin D deficiency Positive colorectal cancer screening using Cologuard test Fibroid Hypothyroidism Asthma Chronic GERD Headache syndrome Functional capacity: independent ambulation Patient : No Family History Family History Father CVD (cardiovascular disease) Arthritis Mother Lung cancer Brother Esophageal cancer Mental health disorder Sister Throat cancer Family history of problems with anesthesia: No Surgical History Surgical History History of dilatation and curettage History of endometrial biopsy History of tubal ligation History of Problems with Anesthesia: Yes Social History Social History Household Members: None Housing: Apartment Alcohol intake: current Alcohol intake frequency: does not drink Patient Tobacco Use Status: Never used Tobacco e-Cigarette/Vaping Use: Never Used Use of substances other than those prescribed or required for medical reasons: No Have you been hit, kicked, punched, or otherwise hurt by someone within the past year? 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 Sexual orientation: Straight/Heterosexual Gender identity: Female Cognitive needs: No Hearing needs: No Vision needs: Yes Meds Allergies Allergy/AdvReac Type Severity Reaction Status Date / Time No Known Allergies (No Known Allergy Verified 09/13/24 07:54 Allergies*) Active Medications: Current Medications Albuterol Sulfate (Albuterol Sulfate (0.083%) 2.5 Mg/3 Ml Vial.Neb) 2.5 mg INHALE ONCE PRN PRN Reason: Shortness of Breath/Wheezing Lactated Ringer's (Lr) 1,000 mls @ 100 mls/hr IVCONT .Q10H CHAS Last Admin: 09/13/24 08:04 Dose: 100 mls/hr Home Medications ?Medication ?Instructions ?Recorded ?Confirmed ?Last Taken ?Type citalopram 20 mg tablet 30 mg PO DAILY 05/02/22 08/0 03/09 Unknown History zolpidem 10 mg tablet 10 mg PO BEDTIME PRN other 0 04/25/23 09/13/24 Unknown History clonazepam 0.5 mg tablet 0.5 mg PO BEDTIME PRN other 07/14/23 09/13/24 Unknown History Exam Height,Weight and Vital Signs: Height 5 ft 2 in Weight 86.7 kg Last Vital Signs Temp 97.0 F 09/13/24 07:51 Pulse 58 09/13/24 07:51 Resp 16 09/13/24 07:51 BP 137/83 09/13/24 07:51 Pulse Ox 98 09/13/24 07:51 O2 Del Method Room Air 09/13/24 07:51 Airway Mallampati Class: II TM Dist: >3cm Neck ROM: Full Heart: RRR Lungs: CTA Assessment and Plan Assessment Anesthesia Assessment: Anesthesia Plan Discussed Final Anesthetic Review Family History of Problems with Anesthesia: No History of Problems with Anesthesia: Yes NPO: Yes ASA Class: II Final Preanesthetic Review: Meds/Allgs Chart Reviewed, Consent Obtained/Reviewed and Anes Risks/Benef Reviewed Patient Risk: Low Procedure Risk: Low Anesthetic Plan Anesthetic Plan: GA Disposition: Standard PACU
--- NOTE | 2024-09-13 09:18 | MHC.SHP ---
Pre-Procedural Eval Section A - 24 Hr Update-Section A only Date of Service: 09/13/24 The patient is an INPATIENT: No Changes since office visit: No Cold of Flu in the past 2 weeks, No New Medical Problems, No Changes in Medication and No Patient answered all questions The patient has been examined within 24 hours of the surgical procedure. The History & Physical has been completed within 30 days and I have reviewed it.: Yes Section B - Complete if H&P > 30 days Chief Complaint: Postmenopausal bleeding Allergies: Allergies Allergy/AdvReac Type Severity Reaction Status Date / Time No Known Allergies (No Known Allergy Verified 09/13/24 07:54 Allergies*) Plan Diagnosis/Plan: Unchanged I have reviewed the history and physical and performed a pertinent physical examination on my patient. No changes have occurred unless specified. Time Spent With Patient Time: Total time managing care of this patient today ____ minutes.
--- NOTE | 2024-09-13 09:52 | P.OP_ITS ---
Operative Note Operative Note Date of Service: 09/13/24 Narrative: Preop Diagnosis: Postmenopausal bleeding, abnormal Endometrial by US Operation: Diagnostic Hysteroscopy, Dilataion & Curettage and polypectomy Post Op Diagnosis: Endometrial Polyp QBL: Minimal Anesthesia: GLMA Surgeon: Grant Villeda MD Special Education Classroom Aide: None Complication: None Pathology: Endometrial Scrapings, Endometrial polyp Procedure: The patient was put in the dorsal lithotomy position, scrubbed, and draped in the usual manner. A sterile speculum was inserted in the patient's vagina. The anterior lip of the cervix was grasped with a single tooth tenaculum. The cervix was dilated up to 5 mm, then the scope was inserted in the patient's uterus. Inspection revealed endometrial polyp. The Myosure Reach device was used; it was introduced through the operative channel and polypectomy done with no complications. The scope was then taken out from the uterine cavity, sharp curettings was carried on with minimal to moderate amount of tissues retrieved. At the end of the procedure, all instruments were taken out of the patient uterine and vaginal cavity. The single tooth tenaculum was removed and homeostasis was assured using pressure,. The patient tolerated the procedure well and was transferred to the PACU in a stable condition.
--- NOTE | 2024-09-13 09:52 | P.BOP_ITS ---
Brief Operative Note Date of Service: 09/13/24 Pre-op diagnosis: Postmenopausal bleeding, abnormal endometrium by ultrasound Post-op diagnosis: same (Endometrial polyp) Procedure: Hysteroscopy D&C, Polypectomy Surgeon: Grant Villeda MD Anesthesia: GLMA Was an Information Receptionist used for this Procedure?: No Estimated blood loss (mL): 0 Pathology: other (Endometrial Scrapping. Polyp) Condition: stable Disposition: PACU
[2024-09-13 10:10] VITALS: BP 145/77; PULSE 90; RESP 14; TEMP 36.2; O2SAT 93
[2024-09-13 10:15] VITALS: BP 138/75; PULSE 93; RESP 16; O2SAT 92
[2024-09-13 10:20] VITALS: BP 133/76; PULSE 92; RESP 18; O2SAT 95
[2024-09-13 10:25] VITALS: BP 136/74; PULSE 93; RESP 16; TEMP 36.3; O2SAT 95
[2024-09-13 10:30] VITALS: BP 137/70; PULSE 93; RESP 16; TEMP 36.3; O2SAT 96
--- NOTE | 2024-09-13 11:42 | HO.POSTANES ---
Post Anesthesia Evaluation Post Anesthesia Evaluation Date of Service: 09/13/24 Vital Signs: Vital Signs Temp Pulse Resp BP Pulse Ox O2 Del Method 09/13/24 10:30 97.3 F 93 16 137/70 96 Room Air 09/13/24 10:25 97.3 F 93 16 136/74 95 Room Air 09/13/24 10:20 92 18 133/76 95 Room Air 09/13/24 10:15 93 16 138/75 92 Room Air 09/13/24 10:10 97.1 F 90 14 145/77 H 93 Room Air 09/13/24 07:51 97.0 F 58 16 137/83 98 Room Air Anesthesia: General Mental Status: Awake Pain Control: Satisfactory Nausea/Vomiting: None Hydration: Adequate Anesthesia-Related Issues: No Anes. Related Issues
== END 2024-09-13 11:12 | disposition home or self-care (01) ==
PROVIDERS: PCP Internal Medicine; Visit Provider Obstetrics & Gynecology
PROC: 0UDB8ZZ Extraction of Endometrium, Via Natural or Artificial Opening Endoscopic (ICD-10-PCS; CPT 58558; principal; 2024-09-13 09:50)
DX: N95.0 Postmenopausal bleeding (principal); N84.0 Polyp of corpus uteri; D25.9 Leiomyoma of uterus, unspecified; F33.1 Major depressive disorder, recurrent, moderate; G44.89 Other headache syndrome; E55.9 Vitamin D deficiency, unspecified; E03.9 Hypothyroidism, unspecified; K21.9 Gastro-esophageal reflux disease without esophagitis; J45.909 Unspecified asthma, uncomplicated; Z79.899 Other long term (current) drug therapy; Z98.890 Other specified postprocedural states
CPT/HCPCS: 58558; 88305; J1100; J2003; J2250; J2405; J2704; J3010

== ENCOUNTER → 2024-09-13 07:26 | Outpatient (BNV) | payer OTHER, SELFPAY | PROVIDERS: PCP Internal Medicine; Visit Provider Obstetrics & Gynecology | DX: N84.0 Polyp of corpus uteri (principal); N95.0 Postmenopausal bleeding | CPT/HCPCS: 58558 ==

== ENCOUNTER 2024-09-18 08:40 | Outpatient (AMB) | payer OTHER, SELFPAY ==
--- NOTE | 2024-09-18 08:40 | A.OFFVIS_ITS ---
Vital Signs 09/18/24 08:41 Height 5 ft 2 in Weight 178 lb BMI 32.6 Intake Visit Reasons: post op Allergies No Known Allergies (No Known Allergies*) Allergy (Verified 09/13/24 07:54) HPI Comments Details: The patient is presenting post hysteroscopy D&C/polypectomy no complaints minimal vaginal bleeding no feverishness chills or abdominal pain. Intraoperative findings: Endometrial polyp status post polypectomy D and C The pathology showed the following: A. Endometrial polyp, resection: Fragments of benign endometrial polyp with focal stromal collapse and gland crowding, fragments of benign mixed endometrial/endocervical polyp, and fragments of benign smooth muscle (submucosal leiomyoma versus myometrium); no atypia or carcinoma (see comment). B. Endometrium, curettage: Benign inactive endometrium, and scant benign endocervical glandular and squamous epithelium; no atypia or carcinoma. Comment: (A): The gland crowding may be secondary to the stromal collapse, but follow-up is warranted Pelvic ultrasound done in 03/19/2024 showed the following: Anteverted uterus is 12.4 cm length. The myometrium is heterogeneous. There is a circumscribed lesion within the anterior aspect of the uterine body abutting the endometrium measuring 11 x 7 x 9 mm. This is similar to the prior exam. Additional hypoechoic lesion within the posterior aspect of the uterine body measures 9 x 7 x 8 mm. Endometrium 7 mm thickness. Polypoid lesion distending the endometrium within the uterine fundus measuring 7 x 3 x 6 mm, possibly an endometrial polyp. This was not appreciated on the patient's prior exam. Right ovary 1.6 x 1.9 x 1.2 cm. Left ovary 1.3 x 2.3 x 1.2 cm. Normal color Doppler of both ovaries. Trace free fluid Last co testing in 04/06 was negative [facility] Medical History Depression, major, recurrent, moderate Vitamin D deficiency Positive colorectal cancer screening using Cologuard test Fibroid Hypothyroidism Asthma Chronic GERD Headache syndrome Surgical History History of dilatation and curettage History of endometrial biopsy History of tubal ligation Family History Father CVD (cardiovascular disease) Arthritis Mother Lung cancer Brother Esophageal cancer Mental health disorder Sister Throat cancer Social History Household Members: None Housing: Apartment Alcohol intake: current Alcohol intake frequency: does not drink Patient Tobacco Use Status: Never used Tobacco e-Cigarette/Vaping Use: Never Used service: No 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0 - Postmenopausal bleeding Category: Medical Plan: Discussed with the patient the pathology of the polyp showing gland crowding, no atypia, hyperplasia and/or carcinoma. Discussed with the patient that significance of pathological findings is possible implications and possible as sociation with future hyperplasia and/or malignancy. Recommended a 2nd opinion for review of the pathology slight and management consult with [facility]. All questions answered, the patient verbalized understanding. Instructed the patient to call our office back in case a referral appointment is not scheduled, missed or canceled so that we will assist on rescheduling another appointment, the patient verbalized understanding agreed with the plan. Orders: Referrals Gynecologic Oncology Referral N95.0 - Postmenopausal bleeding Coding Level of Care Code Est Pt Level 3 (23215) Diagnoses Postmenopausal bleeding N95.0
[2024-09-18 08:41] VITALS: BMI 32.6
--- OUTSIDE RECORDS SUMMARY | 2024-09-18 08:52 | XMS_ITS | Clinical Summary ---
Author Organization [facility] Address [address] [place] [address] Care Team Providers Care Fruit Room Hand Name Role Phone Unavailable Primary Care Provider [...] Tdap) 11/14/2018 009 Dental Prophy 03/16/2023 03/14/2022 [id number] (1 - season) 2023 Alcohol and Drug [...] to Health Maintenance Insurance [place] MED[place] [facility] [place] [place] [id number]
--- OUTSIDE RECORDS SUMMARY | 2024-09-18 08:52 | XMS_ITS | Clinical Summary ---
Author Organization [facility] Address [address] [place] [address] Phone Care Team Providers Care Speeder Operator Name Role Phone Mitra Brown MD Primary Care Provider [phone] Allergies No known active allergies Medications diclofenac [...] Medical Devices Not on file Insurance [facility] [place] [address] [place] [address] [place] [address] [place] [address] [place] [address] [place] [address] [address] [place] [address] [place] [address] [address] [place] [address] [place] [address] [facility] ACO Care Teams Speeder Operator Relationship Specialty Start Date End Date Mitra Brown MD [address] [place] [id number] PCP - General Internal Medicine 07/02/21 Additional Source Comments The information contained in this document represents components of the legal health record. It is not the complete legal health record.[facility]
== END 2024-09-18 09:15 | disposition home or self-care (01) ==
LOC: HO.HWS 08:40
PROVIDERS: PCP Internal Medicine; Visit Provider Obstetrics & Gynecology
DX: N95.0 Postmenopausal bleeding (principal)
CPT/HCPCS: 99213

== ENCOUNTER → 2024-09-18 08:40 | Outpatient (BNVA) | payer OTHER, SELFPAY | PROVIDERS: PCP Internal Medicine; Visit Provider Obstetrics & Gynecology | DX: Z48.816 Encounter for surgical aftercare following surgery on the genitourinary system (principal); N84.0 Polyp of corpus uteri; N95.0 Postmenopausal bleeding | CPT/HCPCS: 99212 ==

== ENCOUNTER 2024-10-16 08:53 | Outpatient (REF) | payer OTHER, SELFPAY ==
--- NOTE | ~2024-10-16 | XR_ITS ---
EXAMINATION: XR CERVICAL SPINE CLINICAL INFORMATION: M54.2 - Cervicalgia COMPARISON: January 01, 2013. TECHNIQUE: AP lateral and atlantoodontoid views FINDINGS: Syndesmophyte formation and marginal osteophyte formation with overall preservation of the intervertebral disc height from C2 to C7. Loss of physiologic lordosis. No acute cortical disruption or malalignment. No lytic or blastic lesions. Upper airway is patent. XR/XR cervical spine 2V IMPRESSION: DISH, C3 C7. Overall worsening since prior exam. Electronically signed by: Rich Cole MD 10/16/2024 10:41 AM EDT Workstation:
== END 2024-10-16 08:54 | disposition home or self-care (01) ==
LOC: HO.HMGCX 08:53
PROVIDERS: PCP Internal Medicine; Visit Provider Internal Medicine
DX: M54.2 Cervicalgia (principal); M62.838 Other muscle spasm; S16.1XXA Strain of muscle, fascia and tendon at neck level, initial encounter; M25.78 Osteophyte, vertebrae; X58.XXXA Exposure to other specified factors, initial encounter
CPT/HCPCS: 72040; 99212

== ENCOUNTER 2024-10-16 08:53 | Outpatient (AMB) | payer OTHER, SELFPAY ==
[2024-10-16 09:05] VITALS: BP 102/64; PULSE 83; TEMP 36.7; O2SAT 95; BMI 34.4
--- NOTE | 2024-10-16 09:05 | AM.OFFWIN_ITS ---
Intake Vital Signs 10/16/24 09:05 Height 5 ft 2 in Weight 188 lb BMI 34.4 BP 102/64 Blood Pressure Location Lt brachial Position Sitting Pulse 83 Pulse Source Pulse Oximeter Temp 98.1 F Temp Source Oral Pulse Oximetry (%) 95 Oxygen Delivery Method Room Air Intake Visit Reasons: ep pain in neck to head Patient Tobacco Use Status: Never used Tobacco Allergies No Known Allergies (No Known Allergies*) Allergy (Verified 10/16/24 09:06) Medication List - Last Reconciled 10/16/24 by Mitra Brown MD albuterol sulfate 90 mcg/actuation 2 puffs inhalation Q4-6H PRN albuterol sulfate 0.63 mg (3 mL) inhalation QID PRN 30 days cetirizine 10 mg PO DAILY 90 days cholecalciferol (vitamin D3) 50 mcg PO DAILY citalopram 30 mg PO DAILY clonazepam 0.5 mg PO BEDTIME PRN clotrimazole-betamethasone 1-0.05 % 1 appl topical BID 7 days compr.stocking,knee,long,large As directed diclofenac sodium 50 mg PO Q12H PRN [elevated toilet seat As directed] fluticasone propionate 50 mcg/actuation 1 spray intranasal DAILY 30 days Grab bar 1 long bar for in the shower ibuprofen 600 mg PO Q8H PRN levothyroxine 50 mcg PO DAILY 90 days lidocaine 5% 1 patch topical DAILY meclizine 25 mg PO TID omeprazole 40 mg PO DAILY 90 days rosuvastatin (Crestor) 20 mg PO DAILY Shower Chair Shower chair with backrest [Updraft machine As directed] zolpidem 10 mg PO BEDTIME PRN Do you need a note to return to daycare/school/sports/work: No HPI ep pain in neck to head HPI Details Interval History The patient is a 64-year-old female presenting with neck and skull pain. Neck and skull pain: - New episodes of pain have been occurri ng for three weeks. - Pain is described as awful, located fr om the neck to the skull. - Tylenol and self-massage with a heat p ad have been attempted without significant relief. - No recent imaging, such as x-rays of t he neck, has been performed. Social History: - Retired; does not work currently. - Engages in daily activities as permitt ed, such as shopping. - Limited use of the telephone, especial ly given current pain. Problem List - Neck and skull pain - Arthritis Patient Instructions - Take prescribed muscle relaxers for a few days as directed. - Undergo a baseline x-ray of the neck f or further evaluation. - Be aware that the medication may cause drowsiness and exercise caution. Review of Systems - General: No fever no chills - Neurological: no dizziness, no numbness tingling in arms or hands - Ear nose throat: No sore throat no hearing difficulty no ear pain - Cardiovascular: No syncope, no chest pain, no palpitations - Gastrointestinal: No nausea vomiting or diarrhea Physical Exam General: No acute distress HEENT: No acute findings Neck: Limited range of motion, discomfort upon palpation posteriorly over trapezius muscles and neck muscles Respiratory system: Able to talk in full sentences, no audible wheeze Cardiovascular: S1-S2 regular in rate and rhythm Gastrointestinal: No pain Extremities: No new findings LIGHT EQUIPMENT OPERATOR: Alert awake oriented x3 motor sensory intact Skin: Normal turgor 14:14 x-ray report came in which showed l osteophyte formation with overall preservation of the intervertebral disc height from C2 to C7. Loss of physiologic lordosis. No acute cortical disruption or malalignment. No lytic or blastic lesions. Upper airway is patent [facility] Medical History Depression, major, recurrent, moderate Vitamin D deficiency Positive colorectal cancer screening using Cologuard test Fibroid Hypothyroidism Asthma Chronic GERD Headache syndrome Surgical History History of dilatation and curettage History of endometrial biopsy History of tubal ligation Family History Father CVD (cardiovascular disease) Arthritis Mother Lung cancer Brother Esophageal cancer Mental health disorder Sister Throat cancer Social History Household Members: None Housing: Apartment Alcohol intake: current Alcohol intake frequency: does not drink Patient Tobacco Use Status: Never used Tobacco e-Cigarette/Vaping Use: Never Used service: No 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 occupational 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 Sexual orientation: Straight/Heterosexual Gender identity: Female Cognitive needs: No Hearing needs: No Vision needs: Yes Physical Exam Vital Signs: Last Vital Signs Temp 98.1 F 10/16/24 09:05 Pulse 83 10/16/24 09:05 BP 102/64 10/16/24 09:05 Pulse Ox 95 10/16/24 09:05 Oxygen Delivery Method Room Air 10/16/24 09:05 BMI result Body Mass Index 34.4 Assessment & Plan Assessment & Plan (1) Neck pain: Code(s): M54.2 - Cervicalgia (2) Cervical paraspinal muscle spasm: Code(s): M62.838 - Other muscle spasm (3) Strain of cervical portion of both trapezius muscles: Code(s): S16.1XXA - Strain of muscle, fascia and tendon at neck level, initial encounter (4) Osteophyte of cervical spine: Code(s): M25.78 - Osteophyte, vertebrae Plan Interval History The patient is a 64-year-old female presenting with neck and skull pain. Neck and skull pain: - New episodes of pain have been occurring for three weeks. - Pain is described as awful, located from the neck to the skull. - Tylenol and self-massage with a heat pad have been attempted without sign ificant relief. - No recent imaging, such as x-rays of the neck, has been performed. Social History: - Retired; does not work currently. - Engages in daily activities as permitted, such as shopping. - Limited use of the telephone, especially given current pain. Problem List - Neck and skull pain - Arthritis Patient Instructions - Take prescribed muscle relaxers for a few days as directed. - Undergo a baseline x-ray of the neck for further evaluation. - Be aware that the medication may cause drowsiness and exercise caution. At 14:14 x-ray report came in which showed osteophyte formation with overall preservation of the intervertebral disc height from C2 to C7. Loss of physiologic lordosis. No acute cortical disruption or malalignment. No lytic or blastic lesions. Upper airway is patent Orders: Orders XR cervical spine 2V Today M54.2 - Cervicalgia Medications: Refilled cyclobenzaprine 5 mg PO BEDTIME PRN 30 tabs 0RF muscle spasm Coding Level of Care Code Est Pt Level 4 (15249) Diagnoses Neck pain M54.2 Cervical paraspinal muscle spasm M62.838 Strain of cervical portion of both trapezius muscles S16.1XXA Osteophyte of cervical spine M25.78 Time Spent (min) 30 Comment [id number], follow-up x-ray
--- OUTSIDE RECORDS SUMMARY | 2024-10-16 09:23 | XMS_ITS | Clinical Summary ---
Author Organization [facility] Address [address] [place] [address] Care Team Providers Care Business Programmer Name Role Phone Unavailable Primary Care Provider [...] Tdap) 11/14/2018 009 Dental Prophy 03/16/2023 03/14/2022 [id number] (1 - season) 2023 Alcohol and Drug [...] to Health Maintenance Insurance [place] [facility] [place] [id number]
--- OUTSIDE RECORDS SUMMARY | 2024-10-16 09:23 | XMS_ITS | Clinical Summary ---
Author Organization [facility] Address [address] [place] [address] Phone Care Team Providers Care Devops Name Role Phone Mitra Brown MD Primary Care Provider [phone] Allergies No known active allergies Medications diclofenac [...] Medical Devices Not on file Insurance [facility] [place] [address] [place] [address] [place] [address] [place] [address] [place] [address] [place] [address] [place] [address] [place] [address] [place] [address] [place] [address] [place] [address] [place] [address] [facility] ACO Care Teams Devops Relationship Specialty Start Date End Date Mitra Brown MD [address] [place] [id number] PCP - General Internal Medicine 07/02/21 Additional Source Comments The information contained in this document represents components of the legal health record. It is not the complete legal health record.[facility]
== END 2024-10-16 10:03 | disposition home or self-care (01) ==
PROVIDERS: PCP Internal Medicine; Visit Provider Internal Medicine
DX: M54.2 Cervicalgia (principal); M62.838 Other muscle spasm; S16.1XXA Strain of muscle, fascia and tendon at neck level, initial encounter; M25.78 Osteophyte, vertebrae

== ENCOUNTER → 2024-10-16 09:31 | Outpatient (BNV) | payer OTHER, SELFPAY | PROVIDERS: PCP Internal Medicine; Visit Provider Radiology Diagnostic Radiology | DX: M54.2 Cervicalgia (principal) | CPT/HCPCS: 72040 ==

== ENCOUNTER 2024-11-01 09:42 | Outpatient (AMB) | payer OTHER, SELFPAY ==
--- NOTE | 2024-11-01 09:54 | A.OFFVIS_ITS ---
Vital Signs 11/01/24 09:55 Height 5 ft 2 in Weight 189 lb BMI 34.6 Blood Pressure Location Rt brachial Position Sitting Respiration 16 Pulse 78 Pulse Oximetry (%) 97 Intake Visit Reasons: migraine Parts Sales Counterperson Required: No Allergies No Known Allergies (No Known Allergies*) Allergy (Verified 10/16/24 09:06) Medication List - Last Reconciled 11/01/24 by Cindy Cerrato CNP albuterol sulfate 90 mcg/actuation 2 puffs inhalation Q4-6H PRN albuterol sulfate 0.63 mg (3 mL) inhalation QID PRN 30 days cetirizine 10 mg PO DAILY 90 days cholecalciferol (vitamin D3) 50 mcg PO DAILY citalopram 30 mg PO DAILY clonazepam 0.5 mg PO BEDTIME PRN clotrimazole-betamethasone 1-0.05 % 1 appl topical BID 7 days compr.stocking,knee,long,large As directed cyclobenzaprine 5 mg PO BEDTIME PRN diclofenac sodium 50 mg PO Q12H PRN divalproex (Depakote) 250 mg PO BID 5 days [elevated toilet seat As directed] fluticasone propionate 50 mcg/actuation 1 spray intranasal DAILY 30 days fremanezumab-vfrm (Ajovy) 225 mg (1.5 mL) subcut QMONTH Grab bar 1 long bar for in the shower ibuprofen 600 mg PO Q8H PRN levothyroxine 50 mcg PO DAILY 90 days lidocaine 5% 1 patch topical DAILY meclizine 25 mg PO TID omeprazole 40 mg PO DAILY 90 days rosuvastatin (Crestor) 20 mg PO DAILY Shower Chair Shower chair with backrest [Updraft machine As directed] zolpidem 10 mg PO BEDTIME PRN HPI Comments Details: Shireen is a 64-year-old female patient with a past medical history of obesity and vitamin-D deficiency who is followed in Neurology for her chronic migraine. She was previously followed by Dr. Brown though more recently had transferred over to [facility]rology where she was seen by several providers including myself. She has tried several medications for both preventive and abortive measures many of which have worked for some time and then stopped being effective. She is currently experiencing a migraine type headache on a daily basis waxing and waning in severity. Her migraines are accompanied by photophobia, phonophobia, nausea, dizziness, and irritability. Her headaches primarily present in the occipital areas radiating upward and forward. Headaches do cau ses sensation of heaviness and can often favor the left side. Sleep has been a significant factor in triggering her migraines. With poor sleep quality, she does have worsening of headaches. Headaches can adversely also make it more difficult for her to sleep. Prior medication trials have included: Amitriptyline-through psychiatry without improvement in headache Topiramate 50 mg daily-ineffective also causing adverse effects Propranolol 20 mg twice daily-no improvement Mirtazapine -through psychiatry without improvement in headache Lamictal Gabapentin Verapamil Riboflavin Depakote 500 mg twice daily no improvement Aimovig -worked initially and became ineffective Emgality -worked initially and became ineffective Namenda-tried this through the [facility] in [place] for both headache and memory. No improvement. Maxalt-ineffective Nurtec -ineffective Diclofenac-still taking. Has taken twice daily for the past 2 weeks Prior workup: MRI of the brain without contrast 06/24/2017 performed at [facility]: Normal MRI of the brain without contrast [facility] Medical History (Updated 11/01/24 @ 10:54 by Cindy Cerrato CNP) Migraine Depression, major, recurrent, moderate Vitamin D deficiency Positive colorectal cancer screening using Cologuard test Fibroid Hypothyroidism Asthma Chronic GERD Headache syndrome Surgical History History of dilatation and curettage History of endometrial biopsy History of tubal ligation Family History Father CVD (cardiovascular disease) Arthritis Mother Lung cancer Brother Esophageal cancer Mental health disorder Sister Throat cancer Social History Household Members: None Housing: Apartment Alcohol intake: current Alcohol intake frequency: does not drink Patient Tobacco Use Status: Never used Tobacco e-Cigarette/Vaping Use: Never Used service: No 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 occupational 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 Sexual orientation: Straight/Heterosexual Gender identity: Female Cognitive needs: No Hearing needs: No Vision needs: Yes Review of Systems Const All systems reviewed & are unremarkable except as noted in HPI and below Physical Exam Vital Signs: Last Vital Signs Pulse 78 11/01/24 09:55 Resp 16 11/01/24 09:55 Pulse Ox 97 11/01/24 09:55 BMI result Body Mass Index 34.6 Const General: cooperative, healthy appearing, comfortable and no acute distress Nutritional Appearance: well nourished Orientation/consciousness: patient oriented x3 Limitations: no limitations HEENT Head: Yes normal to inspection and Yes normocephalic Eyes General: appearance normal, both eyes and all related structures Visual Cowan: normal visual cowan by confrontation Alignment and Position: alignment normal Periorbital: periorbital findings normal Eyelids: Yes eyelids normal Conjunctivae: conjunctivae normal Sclerae: sclerae normal Neck Other: L>R bilateral occipital notch tenderness. Some bilateral trapezius tenderness with palpation. Neuro General: patient oriented x3 and deep tendon reflexes 2+ bilaterally Cranial nerves: Yes CN's II-XII intact bilaterally and Yes Facial sensation intact/muscles of mastication intact Cognition (Neuro): normal cognition Gait exam (Neuro): Normal gait present Motor exam (neuro): 5/5 motor strength present throughout and no tremor noted Sensory Exam: double simultaneous stimulation for sensation normal Romberg Test: Negative Pupils: Normal pupillary reactivity/response: bilateral Psych Appearance: grossly normal Mental Status: mental status grossly normal Speech and movement: Normal speech and movement present and Clear speech present Affect: normal affect Attitude: cooperative Thought process: Normal thought process present Thought content: Normal thought content present Insight: Good insight present (Psych) Judgement: Good judgement present (Psych) Assessment & Plan Assessment & Plan (1) Chronic migraine without aura without status migrainosus, not intractable: Code(s): G43.709 - Chronic migraine without aura, not intractable, without status migrainosus Category: Medical Plan: . Pancho Iyer is a 64-year-old female patient with a past medical history of obesity and vitamin-D deficiency who is followed in Neurology for her chronic migraine. She has tried several medications. During our last visit together at [facility] we had decided to trial Qulipta however it was denied by insurance who suggested a trial of Ajovy. I had asked and ordered for start of Ajovy however this never came to fruition for unclear reasons. I did recommend that we start her again on the Ajovy injections and if this is ineffective, could still consider the Qulipta or even perhaps Vyepti infusions. For acute treatment of her headaches which have been worsening, I will provide her with a 5 day course of Depakote in efforts to break her migraine cycle. I would like her to start in the Ajovy as soon as possible. We also discussed the use of her diclofenac which she has been taking in excess over the course of the last couple of weeks. She agrees to reduce the frequency of the diclofenac as it can contribute to worsening of headaches (medication overuse headache) if she continues to take it the way she has been. -trial of depakote 250mg twice daily for 5 days for acute therapy -start a trial of Ajovy 225 mg monthly for migraine prevention -future considerations: Qulipta 60 mg daily or Vyepti infusions every 12 weeks -she is recommended to reduce the use of diclofenac to no more than 2 days per week -follow up in 2 months or sooner if needed Medications: New divalproex (Depakote) 250 mg PO BID 10 tabs 0RF acute migraine 5 days fremanezumab-vfrm (Ajovy) 225 mg (1.5 mL) subcut QMONTH 1.5 mL 4RF Coding Level of Care Code New Pt Level 4 (52172) Diagnoses Chronic migraine without aura without status migrainosus, not intractable G43.709
[2024-11-01 09:55] VITALS: PULSE 78; RESP 16; O2SAT 97; BMI 34.6
--- OUTSIDE RECORDS SUMMARY | 2024-11-01 10:20 | XMS_ITS | Clinical Summary ---
Author Organization [facility] Address [address] [place] [address] Phone Care Team Providers Care Seo Marketing Specialist Name Role Phone Mitra Brown MD Primary Care Provider [phone] Allergies No known active allergies Medications diclofenac [...] 2) 04/28/2009 Adult Td,Tdap Booster 11/14/2018 11/14/2008 OSTEOPOROSIS SCREENING INITI AL (ONE-TIME) 04/28/2024 INFLUENZA VACCINE (#1) 2024 COVID-19 VACCINE (2 - 2024-2 6 season) 2024 05/20/2020 RSV VACCINE (1 - 1-dose 75+ series) [...] topic Medical Devices Not on file [place] [address] [facility] [place] [address] [place] [address] [place] [address] [place] [address] [place] [address] [place] [address] [place] [address] [place] [address] [place] [address] [place] [address] [place] [place] [address] [facility] ACO Care Teams Seo Marketing Specialist Relationship Specialty Start Date End Date Mitra Brown MD [address] [place] [id number] PCP - General Internal Medicine 07/02/21 Additional Source Comments The information contained in this document represents components of the legal health record. It is not the complete legal health record.[facility]
--- OUTSIDE RECORDS SUMMARY | 2024-11-01 10:20 | XMS_ITS | Clinical Summary ---
Author Organization [facility] Address [address] [place] [address] Care Team Providers Care Analytical Manager Name Role Phone Unavailable Primary Care Provider [...] Tdap) 11/14/2018 009 Dental Prophy 03/16/2023 03/14/2022 Alcohol and Drug Screen 02/14/2024 Depression Annual Screen 02/14/2024 Bone Density Screening 04/28/2024 Falls Prevention 04/28/2024 [id number] ( season) 2024 Imm-Influenza (#1) 2024 Hypertension Screening (#1) 11/27/2024 [...] Most Recently Relevant to Health Maintenance Insurance [place] MEDICA[place] DENT[place] [facility] [place] [place] [id number]
== END 2024-11-01 10:26 | disposition home or self-care (01) ==
LOC: HO.HSM 09:43
PROVIDERS: PCP Internal Medicine; Visit Provider Nurse Practitioner
DX: G43.709 Chronic migraine without aura, not intractable, without status migrainosus (principal)
CPT/HCPCS: 99204

== ENCOUNTER → 2024-11-01 09:42 | Outpatient (BNVA) | payer OTHER, SELFPAY | PROVIDERS: PCP Internal Medicine; Visit Provider Nurse Practitioner | DX: G43.709 Chronic migraine without aura, not intractable, without status migrainosus (principal) | CPT/HCPCS: 99202 ==

== ENCOUNTER 2024-11-05 12:56 | Outpatient (AMB) | payer OTHER, SELFPAY ==
--- NOTE | 2024-11-05 13:10 | MHC.OFFVIS ---
Vital Signs 11/05/24 13:11 Height 5 ft 2 in Weight 189 lb BMI 34.6 BP 116/88 Blood Pressure Location Rt brachial Position Sitting Respiration 16 Pulse 73 Pulse Oximetry (%) 96 Intake Visit Reasons: Injection, per [employer] Business Office Representative Required: No Allergies No Known Allergies (No Known Allergies*) Allergy (Verified 10/16/24 09:06) HPI Comments Details: Shireen is a 64-year-old female patient with a past medical history of obesity and vitamin-D deficiency who is followed in Neurology for her chronic migraine. Per previously documented history from last office visit: She was previously followed by Dr. Brown though more recently had transferred over to [facility] Neurology where she was seen by several providers including myself. She has tried several medications for both preventive and abortive measures many of which have worked for some time and then stopped being effective. She is currently experiencing a migraine type headache on a daily basis waxing and waning in severity. Her migraines are accompanied by photophobia, phonophobia, nausea, dizziness, and irritability. Her headaches primarily present in the occipital areas radiating upward and forward. Headaches do causes sensation of heaviness and can often favor the left side. Sleep has been a significant factor in triggering her migraines. With poor sleep quality, she does have worsening of headaches. Headaches can adversely also make it more difficult for her to sleep . Shireen is here today to receive assistance with her Ajovy injection today. Ajovy injection by this nurse practitioner. It was given per directions on package labeling. The site that was injected was the subcutaneous area to the posterior of her left upper extremity. Prior medication trials have included: Amitriptyline-through psychiatry without improvement in headache Topiramate 50 mg daily-ineffective also causing adverse effects Propranolol 20 mg twice daily-no improvement Mirtazapine -through psychiatry without improvement in headache Lamictal Gabapentin Verapamil Riboflavin Depakote 500 mg twice daily no improvement Aimovig -worked initially and became ineffective Emgality -worked initially and became ineffective Namenda-tried this through the [facility] in [place] for both headache and memory. No improvement. Maxalt-ineffective Nurtec -ineffective Diclofenac-still taking. Has taken twice daily for the past 2 weeks Prior workup: MRI of the brain without contrast 06/24/2017 performed at [facility]: Normal MRI of the brain without contrast PFSH Medical History (Updated 11/01/24 @ 10:54 by Cindy Cerrato CNP) Migraine Depression, major, recurrent, moderate Vitamin D deficiency Positive colorectal cancer screening using Cologuard test Fibroid Hypothyroidism Asthma Chronic GERD Headache syndrome Surgical History History of dilatation and curettage History of endometrial biopsy History of tubal ligation Family History Father CVD (cardiovascular disease) Arthritis Mother Lung cancer Brother Esophageal cancer Mental health disorder Sister Throat cancer Social History Household Members: None Housing: Apartment Alcohol intake: current Alcohol intake frequency: does not drink Patient Tobacco Use Status: Never used Tobacco e-Cigarette/Vaping Use: Never Used service: No Current occupational status: retired Current occupation: [employer] Sexual orientation: Straight/Heterosexual Gender identity: Female Cognitive needs: No Hearing needs: No Vision needs: Yes Physical Exam Vital Signs: Last Vital Signs Pulse 73 11/05/24 13:11 Resp 16 11/05/24 13:11 BP 116/88 11/05/24 13:11 Pulse Ox 96 11/05/24 13:11 BMI result Body Mass Index 34.6 Const General: cooperative, healthy appearing, comfortable and no acute distress Nutritional Appearance: well nourished Orientation/consciousness: patient oriented x3 Limitations: no limitations HEENT Head: Yes normal to inspection and Yes normocephalic Neuro General: patient oriented x3 Cognition (Neuro): normal cognition Gait exam (Neuro): Normal gait present Romberg Test: Negative Psych Appearance: grossly normal Mental Status: mental status grossly normal Speech and movement: Normal speech and movement present and Clear speech present Affect: normal affect Attitude: cooperative Thought process: Normal thought process present Thought content: Normal thought content present Insight: Good insight present (Psych) Judgement: Good judgement present (Psych) Assessment & Plan Assessment & Plan (1) Chronic migraine without aura without status migrainosus, not intractable: Code(s): G43.709 - Chronic migraine without aura, not intractable, without status migrainosus Category: Medical Plan: . Plan Chronic migraine. Ajovy injection given today in office. At time of last office visit, patient was evaluated and it was recommended she trial Ajovy once monthly injections. She is here today to receive her 1st Ajovy injection with me here in the office. I did provide indication to her today and she tolerated her injection well. She did not have any injection site reactions. She was discharged home without any complications. She will return next month for her next injection. Coding Level of Care Code Est Pt Level 1 (90421) Diagnoses Chronic migraine without aura without status migrainosus, not intractable G43.709
[2024-11-05 13:11] VITALS: BP 116/88; PULSE 73; RESP 16; O2SAT 96; BMI 34.6
--- OUTSIDE RECORDS SUMMARY | 2024-11-05 15:50 | XMS_ITS | Continuity of Care Document ---
Demographics Address [address] [place] [address] Phone [phone] Preferred Language Unknown Marital Status Unknown Gnosticist Affiliation Unknown Race Unknown Ethnic Group Unknown Author Name [facility], Medical Address [address] [place] [address] Organization Unknown Address [address] [place] [address] Medications No known medications Problems No known problems
--- OUTSIDE RECORDS SUMMARY | 2024-11-05 15:50 | XMS_ITS | Clinical Summary ---
Author Organization [facility] Address [address] [place] [phone] Phone Care Team Providers Care Recreational Counselor Name Role Phone Mitra Brown MD Primary Care Provider Allergies No known active allergies Medications diclofenac [...] topic Medical Devices Not on file [place] [address] [address] [facility]CO [facility] [place] [address] [place] [address] [place] [address] [place] [address] [place] [address] [place] [address] [place] [address] [place] [address] [place] [address] [place] [address] [place] [address] [place] [address] ACO [facility] ACO Care Teams Recreational Counselor Relationship Specialty Start Date End Date Mitra Brown MD [address] [address] PCP - General Internal Medicine 07/02/21 Additional Source Comments The information contained in this document represents components of the legal health record. It is not the complete legal health record.[facility]
--- OUTSIDE RECORDS SUMMARY | 2024-11-05 15:50 | XMS_ITS | Encounter Summary ---
Demographics Address [address] [place] [address] Phone [phone] Preferred Language Unknown Marital Status Unknown Denominational Affiliation Unknown Race Unknown Ethnic Group Unknown Author Organization [facility] Address [address] [place] [address] Encounters * CPT with Medical [facility] at [facility] on 2024-10-21 { reasonForRequest : Pt reporting a rash on the upper region of her right arm> rash-itchiness which seem to be getting larger>notes there seem to be some of the same rash developing on the left leg>unable to see her dermatologists\n\nAllergies to meds: NONE\nPMH: migraines, vertigo , pa tientReports : Rash , denies :[ Rogers Flash, circumferential rogers , Rogers reported with black tissue to the area , Open skin area after a fall with uncontrolled bleeding , Abscess/infection with streaking noted, presence of fever or wi thout , History of cellulitis, isolated redness noted , Fever and chills noted i n setting of wound , Bites -bugs, spider , Abscess ], chiefComplaints& quot;: Wound Care , pmh : Migraine, Anxiety Disorder, Hypothyroidism , allergies : No Known Drug Allergies , otherAllergies : ,&q uot;painAssessment : , visitOutcome : , additionalComments : 64 y.o female complains of Wound Care\npatient self referring\nPatient noticed the areas on the outside of right arm smaller than a dime size , red and itchy and now developing on the left leg last and have gotten worse\nNo known insect bites she thinks it may be allergies. \nDenies any kidney disease and denies being on any blood thinners. \nrequesting insted assessment. \n\nI provided information on the mobile health provider response time and advised the patient and/or caregiver to monitor reported signs and symptoms. I discussed the warning signs of when to seek emergency care. } Sent to a call for a pt complaining of a rash. [facility] arrives on scene, pt is alert and oriented, airway is patent. Pt complains of rash noted on right forearm around Oct 14, with more spots on right upper arm and one spot underneath right eye a day or two later. Pt also complains of a spot on left leg approx 1 day later. Pt states spots are itchy. Pt also complains of chronic headaches and dizziness (due to vertigo). Pt denies pain or discharge. Pt also denies cp, sob, n/v/d, abd pain, fever, or loc. Pt states rash on forearm and left leg are getting better and pt hasn't noted any new spots. Pt states she has been using hydrocortisone cream and antibiotic ointment. Pt allergies verified: NKDA. BP:124/76, P:64, RR:18, SpO2:99% RA, T:97.8; Head: unremarkable Face: papule noted underneath right eye; Lung sounds: clear bilaterally; Abdomen: soft, non- tender, no distention; Back: unremarkable; Extremities: right arm: papules noted; Skin: pink, warm, dry; [facility] consulted and pt states she hasbeen prescribed cetirizine in past, but has been out for awhile. [facility] sends script to pt's pharmacy for antihistamine, hydrocortisone cream, and bacitracin. Pt is advised to use hydrocortisone and bacitracin three times a day, sparingly. Pt advised to be very careful not to get any cream or ointmentin eye. Red flags discussed. Pt has no further questions. ORAL_MEDICATION, WOUND_CARE Written by Medical [facility] on 2024-10-21
--- OUTSIDE RECORDS SUMMARY | 2024-11-05 15:50 | XMS_ITS | Clinical Summary ---
Author Organization [facility] Address [address] [place] [address] Care Team Providers Care Bottle Dealer Name Role Phone Unavailable Primary Care Provider [...] Bone Density Screening 04/28/2024 Falls Prevention 04/28/2024 [id number] ( season) 2024 Imm-Influenza (#1) 2024 Hypertension [...] Most Recently Relevant to Health Maintenance Insurance [place] D[place] [facility] [place] [id number]
== END 2024-11-05 13:16 | disposition home or self-care (01) ==
LOC: HO.HSM 12:57
PROVIDERS: PCP Internal Medicine; Visit Provider Nurse Practitioner
DX: G43.709 Chronic migraine without aura, not intractable, without status migrainosus (principal)

== ENCOUNTER → 2024-11-05 12:56 | Outpatient (BNVA) | payer OTHER, SELFPAY | PROVIDERS: PCP Internal Medicine; Visit Provider Nurse Practitioner | DX: G43.709 Chronic migraine without aura, not intractable, without status migrainosus (principal) | CPT/HCPCS: 99211 ==

== ENCOUNTER 2024-12-06 11:52 | Outpatient (AMB) | payer OTHER, SELFPAY ==
--- OUTSIDE RECORDS SUMMARY | 2024-12-05 08:40 | XMS_ITS | Encounter Summary ---
Demographics Address [address] [place] [address] Mobile Phone Home Phone Preferred Language en Marital Status Single Taoist Affiliation Unknown Race Other Race Ethnic Group or Author Organization [facility] Address [address] [place] [address] Care Team Providers Care Production Administrative Assistant Name Role Phone Yessi Delaney MD Primary Care Provider [phone] Reason for Visit * Reason Comments Follow-up Encounter Details Date Type Department Care Team ([facility] Contact Info) Description 12/05/2024 8:40 AM EDT Office Visit [facility] [address] [place] [phone] Rinku Desai MD [address] [place] [address] Arrived Social History Tobacco Use Types Packs/Day Years Used Date Smoking Tobacco: Never Smokeless Tobacco: Never Alcohol Use Standard Drinks/Week Comments Not Currently 0 (1 standard drink = 0.6 oz pur e alcohol) Comments Unknown Sex and Gender Information Value Date Recorded Sex Assigned at Not on file Legal Sex Female 5:45 AM EST Gender Identity Not on file Sexual Orientation Not on file documented as of this encounter Last Filed Vital Signs Vital Sign Reading Time Taken Comments Blood Pressure 125/80 12/05/2024 8:35 AM EDT Pulse 73 12/05/2024 8:35 AM EDT Temperature 36.3 C (97.4 F) 12/05/2024 8:35 AM EDT Respiratory Rate - - Oxygen Saturation - - Inhaled Oxygen Concentration - - Weight - - Height - - Body Mass Index - - documented in this encounter Ordered Prescriptions Prescription Sig Dispense Quantity Refills Last Filled Start Date End Date ciprofloxacin (CIPRO) 500 mg tablet Take 1 tablet (500 mg total) by mouth 2 (two) times a day for 7 days. 14 each 12/05/2024 12/12/2024 documented in this encounter Plan of Treatment Upcoming Encounters Date Type Department Care Team ([facility] Contact Info) Description 01/03/2025 11:00 AM EST Appointment [facility] [address] [place] [address] Joe Nash DO [address] [facility] [address] [place] [address] 04/08/2025 10:20 AM EST Office Visit Breast Care [facility] [address] [place] [phone] Rinku Desai MD [address] [place] [address] documented as of this encounter Goals Goal Patient Goal Type Associated Problems Recent Progress Patient-Stated? Author Autogenera kel Goal Care Plan Autogenerated Problem No Jami Abebe documented as of this encounter Visit Diagnoses Not on filedocumented in this encounter Additional Health Concerns Active Problems Noted Date Diagnosed Date Autogenerated Problem 11/14/2024 documented as of this encounter Care Teams Production Administrative Assistant Relationship Specialty Start Date End Date Yessi Delaney MD [address] [place] [address] PCP - General 12/12/23 documented as of this encounter
[2024-12-06 12:05] VITALS: BP 118/82; PULSE 66; RESP 16; O2SAT 98; BMI 34.6
--- NOTE | 2024-12-06 12:05 | MHC.OFFVIS ---
Vital Signs 12/06/24 12:05 Height 5 ft 2 in Weight 189 lb BMI 34.6 BP 118/82 Blood Pressure Location Lt brachial Position Sitting Respiration 16 Pulse 66 Pulse Source Pulse Oximeter Pulse Oximetry (%) 98 Oxygen Delivery Method Room Air Intake Visit Reasons: ajovy injection Proofing Machine Operator Required: No Allergies No Known Allergies (No Known Allergies*) Allergy (Verified 10/16/24 09:06) HPI Comments Details: Shireen is a 64-year-old female patient with a past medical history of obesity and vitamin-D deficiency who is followed in Neurology for her chronic migraine. To review, she has tried several medications for both prevention and abortive measures for migraine. Many in the past have been effective initially and over time the effects wore off. Her migraines historically have been daily but waxing and waning in severity. They are generally accompanied by photophobia, phonophobia, nausea, dizziness, and irritability. Her primary location for pain is the occipital areas radiating abortive toward the top of the head. Often times her migraines would favor the left side. In October, we started her on Ajovy. She is here today for her 2nd Ajovy injection and a brief update. She tells me today that since starting the Ajovy, she has had nearly no headaches over the course of the last month aside from yesterday and today. Even still, these headaches have been relatively mild in severity. She has not had any side effects to the medication that she is aware of at this time. Shireen is here today to receive assistance with her Ajovy injection today. Ajovy injection by this nurse practitioner. It was given per directions on package labeling. The site that was injected was the subcutaneous area to the right lower quadrant of the abdomen. Prior medication trials have included: Amitriptyline-through psychiatry without improvement in headache Topiramate 50 mg daily-ineffective also causing adverse effects Propranolol 20 mg twice daily-no improvement Mirtazapine -through psychiatry without improvement in headache Lamictal Gabapentin Verapamil Riboflavin Depakote 500 mg twice daily no improvement Aimovig -worked initially and became ineffective Emgality -worked initially and became ineffective Namenda-tried this through the [facility] in [place] for both headache and memory. No improvement. Maxalt-ineffective Nurtec -ineffective Diclofenac-still taking. Has taken twice daily for the past 2 weeks Prior workup: MRI of the brain without contrast 06/24/2017 performed at [facility]: Normal MRI of the brain without contrast [facility] Medical History (Updated 11/22/24 @ 15:23 by Yessi Delaney MD) Migraine Depression, major, recurrent, moderate Vitamin D deficiency Positive colorectal cancer screening using Cologuard test Fibroid Hypothyroidism Asthma Chronic GERD Headache syndrome Surgical History History of dilatation and curettage History of endometrial biopsy History of tubal ligation Family History Father CVD (cardiovascular disease) Arthritis Mother Lung cancer Brother Esophageal cancer Mental health disorder Sister Throat cancer Social History Household Members: None Housing: Apartment Alcohol intake: current Alcohol intake frequency: does not drink Patient Tobacco Use Status: Never used Tobacco e-Cigarette/Vaping Use: Never Used service: No Current occupational status: retired Current occupation: [employer] Sexual orientation: Straight/Heterosexual Gender identity: Female Cognitive needs: No Hearing needs: No Vision needs: Yes Review of Systems Const All systems reviewed & are unremarkable except as noted in HPI and below Physical Exam Vital Signs: Last Vital Signs Pulse 66 12/06/24 12:05 Resp 16 12/06/24 12:05 BP 118/82 12/06/24 12:05 Pulse Ox 98 12/06/24 12:05 Oxygen Delivery Method Room Air 12/06/24 12:05 BMI result Body Mass Index 34.6 Const General: cooperative, healthy appearing, comfortable and no acute distress Nutritional Appearance: well nourished Orientation/consciousness: patient oriented x3 Limitations: no limitations HEENT Head: Yes normal to inspection and Yes normocephalic Neuro General: patient oriented x3 Cognition (Neuro): normal cognition Gait exam (Neuro): Normal gait present Romberg Test: Negative Psych Appearance: grossly normal Mental Status: mental status grossly normal Speech and movement: Normal speech and movement present and Clear speech present Affect: normal affect Attitude: cooperative Thought process: Normal thought process present Thought content: Normal thought content present Insight: Good insight present (Psych) Judgement: Good judgement present (Psych) Assessment & Plan Assessment & Plan (1) Chronic migraine without aura without status migrainosus, not intractable: Code(s): G43.709 - Chronic migraine without aura, not intractable, without status migrainosus Category: Medical Plan Shireen is a 64-year-old female patient with a past medical history of obesity and vitamin-D deficiency who is followed in Neurology for her chronic migraine. She has so far had excellent response to the Ajovy over the course of the last month though did have return of headaches 2 days before her next injection was due. This is likely due to wear off effect. I did inject her today with her Ajovy. Lot number [id number] expiration April 2027. -She would like to return in 1 month for repeat injection -Eventually, we should plan to have her become more comfortable with the injection in efforts to be able to inject herself at home Coding Level of Care Code Est Pt Level 3 (27016) Diagnoses Chronic migraine without aura without status migrainosus, not intractable G43.709
--- OUTSIDE RECORDS SUMMARY | 2024-12-06 14:09 | XMS_ITS | Clinical Summary ---
Author Organization [facility] Address [address] [place] [address] Care Team Providers Care Sectional Belt Mold Assembler Name Role Phone Unavailable Primary Care Provider [...] Hepatitis C Screening 1960 Lipid Screening 1960 Tobacco Screening 1960 HIV Screening 04/28/1974 Breast Cancer [...] Bone Density Screening 04/28/2024 Falls Prevention 04/28/2024 [id number] ( - season) 2024 Imm-Influenza (#1) 2024 Hypertension Screening (#1) 11/27/2024 Dental BW 11/29/2024 11/28/2023, 03/14/2022 Dental Examination [...] Most Recently Relevant to Health Maintenance Insurance [place] MEDICA[place] DENT[place] [facility] [place] [place] [address]
--- OUTSIDE RECORDS SUMMARY | 2024-12-06 14:09 | XMS_ITS | Clinical Summary ---
Demographics Address [address] [place] [address] Mobile Phone Home Phone Preferred Language en Marital Status Single Mosque Affiliation Unknown Race Other Race Ethnic Group or Author Organization [facility] Address [address] [place] [address] Phone Care Team Providers Care Folder Stitcher Operator Name Role Phone Yessi Delaney MD Primary Care Provider [phone] Allergies No known active allergies Medications cetirizine (ZyrTEC) 10 mg tablet Take 1 tablet (10 mg total) by mouth 1 (one) time each day. Active cholecalciferol (VITAMIN D-3) 50 mcg (2,000 unit) tablet Take 1 tablet (2,000 Units total) by mouth 1 (one) time each day. 07/18/2024 Active clonazePAM (KlonoPIN) 0.5 mg tablet TAKE ONE TABLET BY MOUTH EVERY DAY NEEDED FOR SEVERE ANXIETY. MAY REPEAT DOSE IF NEEDED. MAX 2 TABLETS PER DAY 08/15/2024 Active cyclobenzaprine (FLEXERIL) 5 mg tablet TAKE ONE TABLET BY MOUTH DAILY AT BEDTIME NEEDED FOR MUSCLE SPASM 10/16/2024 Active DULoxetine (CYMBALTA) [address] capsule Take 1 capsule (20 mg total) by mouth 1 (one) time each day in the morning. 01/26/2024 Active fremanezumab-vf rm (Ajovy Autoinjector) 225 mg/1.5 mL auto-injector Inject 1.5 mL (225 mg total) under the skin. 07/23/2024 Active levothyroxine (SYNTHROID, LEVOTHROID) 50 mcg tablet Take 1 tablet (50 mcg total) by mouth 1 (one) time each day. Active lovastatin (MEVACOR) 40 mg tablet Take 1 tablet (40 mg total) by mouth daily. Active omeprazole (PRILOSEC) 20 mg tablet,delayed release (DR/EC) Take 1 tablet (20 mg total) by mouth daily. Active rizatriptan (MAXALT) 10 mg tablet Take 1 tablet (10 mg total) by mouth. 03/11/2024 6 Active zolpidem (AMBIEN) 10 mg tablet TAKE ONE TABLET BY MOUTH EVERY DAY AT 10P.M. 08/15/2024 Active albuterol HFA (ProAir HFA) 90 mcg/actuation inhaler Inhale by mouth. 04/05/2019 Active ciprofloxacin (CIPRO) 500 mg tablet Take 1 tablet (500 mg total) by mouth 2 (two) times a day for 7 days. 14 each 12/05/2024 5 Active Active Problems Problem Noted Date Diagnosed Date Class 1 obesity 10/31/2024 Migraine headache 07/02/2021 Vitamin D deficiency 07/02/2021 Depression Allergic rhinitis Asthma GERD (gastroesophageal reflux disease) Hypothyroidism Positive colorectal cancer screening using Colog uard test Encounters Date Type Department Care Team Description 12/05/2024 8:40 AM EDT Office Visit [facility] [address] [place] [phone] Rinku Desai MD Arrived 11/14/2024 Telephone Gastroenterology [facility] 175 [facility] 175 [facility] [address] [place] [phone] Rachael Shrestha MD 11/07/2024 11:51 AM EDT - 11/07/2024 11:59 PM EDT Hospital Encounter [facility] Ultrasound [address] [place] [phone] Dysuria; Post-menopausal bleeding Discharge Disposition: Home or Self Care 11/04/[address] [facility] - Main Lab 299 [facility] [place] [phone] Rinku Desai MD Postmenopausal bleeding 10/31/2024 10:00 AM EDT Consult [facility] [address] [place] [address] Rinku Desai MD Post-menopausal bleeding (Primary Dx); Pelvic pain; Endometrial polyp; Dysuria from Last 3 Months Immunizations Immunization Administration Dates Next Due Tdap Tetanus diptheria acell ular pertussis (Boostrix; Adacel) 7yo and older 11/14/2008,11/14/2008 Surgical History Surgery Date Site/Laterality Comments DILATION AND CURETTAGE OF UTERUS 09/01/2016 Path: Fragments of adipose tissue. Scant endocervical epithelium. No endometrium. TUBAL LIGATION 02/13/1989 - 02/12/1990 HYSTEROSCOPY W/ POLYPECTOMY 09/13/2024 Hysteroscopy, dilation curettage, and polypectomy. Dr. Grant Villeda, [facility] Medical History Medical History Date Comments Depression Vitamin D deficiency Positive colorectal cancer screening using Colog uard test Hypothyroidism GERD (gastroesophageal reflux disease) Chronic headache disorder Asthma Allergic rhinitis Class 1 obesity 10/31/2024 Family History Medical History Relation Name Comments Esophageal cancer Brother Mental illness Brother Arthritis Father Coronary artery disease Father Arthritis Mother Lung cancer Mother Throat cancer Sister Relation Name Status Comments Brother Father Mother Sister Social History Tobacco Use Types Packs/Day Years Used Date Smoking Tobacco: Never Smokeless Tobacco: Never Tobacco Cessation:Counseling Given: Not Answered Alcohol Use Standard Drinks/Week Comments Not Currently 0 (1 standard drink = 0.6 oz pur e alcohol) Comments Unknown Sex and Gender Information Value Date Recorded Sex Assigned at Not on file Legal Sex Female 5:45 AM EST Gender Identity Not on file Sexual Orientation Not on file Obstetrics History Last Filed Vital Signs Vital Sign Reading Time Taken Comments Blood Pressure 125/80 12/05/2024 8:35 AM EDT Pulse 73 12/05/2024 8:35 AM EDT Temperature 36.3 C (97.4 F) 12/05/2024 8:35 AM EDT Respiratory Rate - - Oxygen Saturation - - Inhaled Oxygen Concentration - - Weight 85.8 kg (189 lb 3.2 oz) 10/31/2024 10:05 AM EDT Height 157.5 cm (5' 2 ) 10/31/2024 10:05 AM EDT Body Mass Index 34.61 10/31/2024 10:05 AM EDT Plan of Treatment Upcoming Encounters Date Type Department Care Team (Late st Contact Info) Description 01/03/2025 11:00 AM EST Appointment [facility] Endoscopy [address] [place] [address] Joe Nash DO [address] [address] 04/08/2025 10:20 AM EST Office Visit Breast Care [facility] [address] [place] [phone] Rinku Desai MD [address] [place] [address] Health Maintenance Due Date Last Done Comments Breast Cancer Screening 1960 Colorectal Cancer Screening: Colonoscopy 1960 Pneumococcal Vaccine: 50+ Years (1 of 2 - PCV) 04/28/1978 Cervical Cancer Screening: P ap Smear 04/28/1980 RSV Immunization Adult Patients (1 - Risk 50-74 years 1-dose series) 04/28/2009 Zoster Vaccines (1 of 2) 04/28/2009 DTaP,Tdap,and Td Vaccines (3 - Td or Tdap) 11/14/2018 11/14/2008, 11/14/2008 Hepatitis C Screening 01/16/2022 Osteoporosis Screening (Bone Density Screening) 01/16/2022 Social Influencers of Health Screening 01/16/2022 Depression Screening 02/14/2024 Falls Risk Assessment 04/28/2024 COVID-19 Vaccine (2023-2 5 season) 2024 Influenza Vaccine (#1) 2024 HIB Vaccines Aged Out No longer eligi ble based on patient's age to complete this topic HPV Vaccines Aged Out No longer eligi ble based on patient's age to complete this topic Hepatitis A Vaccines Aged Out No long er eligible based on patient's age to complete this topic Hepatitis B Vaccines Aged Out No long er eligible based on patient's age to complete this topic IPV Vaccines Aged Out No longer eligi ble based on patient's age to complete this topic MMR Vaccines Aged Out No longer eligi ble based on patient's age to complete this topic Meningococcal ACWY Vaccine Aged Out N o longer eligible based on patient's age to complete this topic Meningococcal B Vaccine Aged Out No l onger eligible based on patient's age to complete this topic RSV Immunization Patients Under 20 months Aged Out No longer eligible b ased on patient's age to complete this topic Varicella Vaccines Aged Out No longer eligible based on patient's age to complete this topic Goals Goal Patient Goal Type Associated Problems Recent Progress Patient-Stated? Author Autogenera kel Goal Care Plan Autogenerated Problem No Jami Abebe Procedures Procedure Name Priority Date/Time Associated Diagnosis Comments US PELVIS NON OB COMPLETE W TRANSVAGINAL Routine 11/07/2024 1:41 PM EDT Dysuria Post-menopausal bleeding AP OUTSIDE CONSULT Routine 11/04/2024 Postmenopausal bleeding TAN URINE CULTURE TUBE Routine 10/31/2024 10:35 AM EDT Dysuria URINALYSIS WITH REFLEX MICROSCOPIC AND CULTURE Routine 10/31/2024 10:35 AM EDT Dysuria URINALYSIS WITH REFLEX MICROSCOPIC AND CULTURE Routine 10/31/2024 10:35 AM EDT Dysuria CULTURE URINE Routine 10/31/2024 10:35 AM EDT Dysuria from Last 3 Months Results * US Pelvis Non OB Complete w Transvaginal (11/07/2024 1:41 PM EDT) Anatomical Region Laterality Modality Body, Pelvis Ultrasound 11/12/2024 3:48 PM EDT Impressions 11/12/2024 3:54 PM EDT Impression: 1. Mildly enlarged uterus with heterogeneous myometrium. This can be seen in the setting of adenomyosis. 2. 10 mm echogenic lesion subjacent to the myometrium in the anterior uterine body, possibly a submucosal leiomyoma. 3. Endometrial thickness 4 mm double layer. 4. Ovaries not identified. Geovanny SANTOS ([id number]) -------- FINAL REPORT -------- Dictated By: Althea Corrales Dictated Date: 11/12/2024 15:48 ET Assigned Physician: Althea Corrales Reviewed and Electronically Signed By: Althea Corrales Signed Date: 11/12/2024 15:54 ET Workstation ID: [id number] Transcribed By: Self Edit Transcribed Date: 11/12/2024 15:48 ET Narrative 11/12/2024 3:54 PM EDT History: 64-year-old female with postmenopausal bleeding, status post hysteroscopy, D&C and polypectomy 09/13/24. Pathology revealing benign endometrial polyp. Comparison: CT abdomen/pelvis 04/05/21 Findings: Transvesical imaging of the pelvis is supplemented with transvaginal imaging for better detail of the uterus and adnexa. The uterus is mildly enlarged, measuring 10.7 cm in length by 5.3 cm in depth by 6.0 cm in width. The endometrial echo complex measures 4 mm in thickness double layer. No endometrial fluid collections are seen. The myometrium is heterogeneous. A 10 x 6 x 11 mm round, hyperechoic lesion is seen subjacent to the endometrial stripe in the anterior body of the uterus, possibly a submucosal leiomyoma. No internal vascularity is seen by Doppler analysis. There is no free fluid in the cul-de-sac. The ovaries are not identified. No adnexal masses are seen. Procedure Note Althea Corrales MD - 11/12/2024 History: 64-year-old female with postmenopausal bleeding, status posthysteroscopy, D&C and polypectomy 09/13/24. Pathology revealing benignendometrial polyp. Comparison: CT abdomen/pelvis 04/05/21 Findings: Transvesical imaging of the pelvis is supplemented with transvaginalimaging for better detail of the uterus and adnexa. The uterus is mildly enlarged, measuring 10.7 cm in length by 5.3 cm indepth by 6.0 cm in width. The endometrial echo complex measures 4 mm inthickness double layer. No endometrial fluid collections are seen. Themyometrium is heterogeneous. A 10 x 6 x 11 mm round, hyperechoic lesion isseen subjacent to the endometrial stripe in the anterior body of theuterus, possibly a submucosal leiomyoma. No internal vascularity is seenby Doppler analysis. There is no free fluid in the cul-de-sac. The ovaries are not identified. No adnexal masses are seen. IMPRESSION: Impression: 1. Mildly enlarged uterus with heterogeneous myometrium. This can be seenin the setting of adenomyosis. 2. 10 mm echogenic lesion subjacent to the myometrium in the anterioruterine body, possibly a submucosal leiomyoma. 3. Endometrial thickness 4 mm double layer. 4. Ovaries not identified. Telerad PA ([id number]) -------- FINAL REPORT -------- Dictated By: Althea Corrales Dictated Date: 11/12/2024 15:48 ET Assigned Physician: Althea Corrales Reviewed and Electronically Signed By: Althea Corrales Signed Date: 11/12/2024 15:54 ET Workstation ID: [id number] Transcribed By: Self Edit Transcribed Date: 11/12/2024 15:48 ET us Rinku Desai MD IMG US PROCEDURES Final Result * Anatomic pathology outside consult (11/04/2024) Final Diagnosis A. Endometrial polyp ([id number], 09/13/24): Benign endometrial polyp with mucinous metaplasia without atypical features Inactive endometrium with underlying myometrium No neoplasm or carcinoma identified B. Endometrial curettings ([id number], 09/13/24): Inactive endometrium No endometrial hyperplasia or neoplasm identified 11/12/2024 1:50 PM EDT [facility] at 1350 EDT Comment A. Endometrial polyps are hyperplastic by nature and thus non-atypical endometrial hyperplasia/non-e ndometrioid intraepithelial neoplasm (EIN) is an expected finding. No changes to suggest atypical endometrial hyperplasia/EIN are identified. 11/12/2024 1:50 PM EDT [facility] Clinical Information Postmenopausal bleeding Endometrial polyp Per Dr. Grant Villeda's operative note from 09/13/24, only a single endometrial polyp was identified 11/12/2024 1:50 PM EDT [facility] Gross Description A. Endometrium, Polyp: Received from [facility], Department of Pathology are 2 slides (A1-level 1, A1-level 2) for consultative opinion. B. Endometrium, Curretage: Received from [facility], Department of Pathology is 1 slide (B1-level 1-2) for consultative opinion. [facility] Disclaimer Unless otherwise specified, all tissue is 10% NB formalin fixed and paraffin embedded. 11/12/2024 1:50 PM EDT [facility] Tissue Endometrial structure / Unknown 11/04/2024 11/04/2024 2:58 PM EDT Tissue specimen (specimen) Endometrial structure / Unknown 11/04/2024 11/04/2024 2:58 PM EDT Rinku Desai MD LAB PATHOLOGY ORDERABLES Final R esult [facility] [address] [place] [address], [place] [phone] * (ABNORMAL) Urinalysis with reflex microscopic and culture (10/31/2024 10:35 AM EDT) Specific [place] Urine 1.026 1.003 - 1.030 LAB URINALYSIS - AUTOMATED METHOD 10/31/2024 3:35 PM [facility] pH, Urine 7.0 5.0 - 8.0 pH LAB URINALYSIS - AUTOMATED METHOD 10/31/2024 3:35 PM [facility] Leukocytes, Urine Trace(A) Negative LAB URINALYSIS - AUTOMATED METHOD 10/31/2024 3:35 PM [facility] Nitrite, Urine Negative Negative LAB URINALYSIS - AUTOMATED METHOD 10/31/2024 3:35 PM [facility] Protein, Urine Trace <=Trace mg/dL LAB URINALYSIS - AUTOMATED METHOD 10/31/2024 3:35 PM [facility] Glucose, Urine Negative Negative mg/dL LAB URINALYSIS - AUTOMATED METHOD 10/31/2024 3:35 PM [facility] Ketones, Urine Trace(A) Negative mg/dL LAB URINALYSIS - AUTOMATED METHOD 10/31/2024 3:35 PM [facility] Urobilinogen, Urine 1.0 0.2 - 1.0 mg/dL LAB URINALYSIS - AUTOMATED METHOD 10/31/2024 3:35 PM EDT [facility] Bilirubin, Urine Negative Negative LAB URINALYSIS - AUTOMATED METHOD 10/31/2024 3:35 PM EDT [facility] Blood, Urine Negative Negative LAB URINALYSIS - AUTOMATED METHOD 10/31/2024 3:35 PM EDT [facility] RBC, Urine 3.5 0 - 4 /HPF LAB URINALYSIS - AUTOMATED METHOD 10/31/2024 3:35 PM T [facility] WBC, Urine 3.5 0 - 4 /HPF LAB URINALYSIS - AUTOMATED METHOD 10/31/2024 3:35 PM T [facility] Squamous Epithelial, Urine >100(H) 0 - 60 /LPF LAB URINALYSIS - AUTOMATED METHOD 10/31/2024 3:35 PM EDT [facility] Bacteria, Urine Negative Negative /HPF LAB URINALYSIS - AUTOMATED METHOD 10/31/2024 3:35 PM [facility] Hyaline Casts, Urine 0.8 0 - 3 /LPF LAB URINALYSIS - AUTOMATED METHOD 10/31/2024 3:35 PM [facility] Urine Urine specimen obtained by clean catch procedure / Unknown Non-blood Collection / Unknown 10/31/2024 10:35 AM EDT 10/31/2024 3:07 PM EDT us Rinku Desai MD LAB URINE ORDERABLES Final Resul t [facility] [address] [place] [address], * Tan urine culture tube (10/31/2024 10:35 AM EDT) Extra Tube Hold for add-ons. 10/31/2024 5:01 PM EDT [facility] Comment:Auto resulted. Urine Urine specimen obtained by clean catch procedure / Unknown Non-blood Collection / Unknown 10/31/2024 10:35 AM EDT 10/31/2024 3:07 PM EDT us Rinku Desai MD LAB URINE ORDERABLES Final Resul t [facility] [address] [place] [address], [place] [phone] * Culture urine (10/31/2024 10:35 AM EDT) Culture, Urine No growth 11/01/2024 12:07 PM EDT [facility] Urine Urine specimen obtained by clean catch procedure / Unknown Non-blood Collection / Unknown 10/31/2024 10:35 AM EDT 10/31/2024 3:35 PM EDT Rinku Desai MD LAB MICROBIOLOGY - GENERAL ORDER MARGOT Final Result Performing Organization Address City/[facility]/ZIP Co de Phone Number [facility] [address] [place] [address], [place] [phone] from Last 3 Months Additional Health Concerns Active Problems Noted Date Diagnosed Date Autogenerated Problem 11/14/2024 Insurance [address] [address] [facility] Member Subscriber Plan / Payer (Ef fective 2024-Present) Name:Shireen Valentin Relation to Subscriber:Self Name:Shireen Valentin Payer ID:[id number] Group ID:[id number] Type:Not on file Address: [place] [address] [address] [address] Care Teams Folder Stitcher Operator Relationship Specialty Start Date End Date Yessi Delaney MD [address] [place] [address] PCP - General 12/12/23
--- OUTSIDE RECORDS SUMMARY | 2024-12-06 14:09 | XMS_ITS | Encounter Summary ---
Demographics Address [address] [place] [address] Mobile Phone Home Phone Preferred Language en Marital Status Single Presybeterian Affiliation Unknown Race Other Race Ethnic Group or Author Organization [facility] Address [address] [place] [address] Care Team Providers Care Director Of Field Service Name Role Phone Yessi Delaney MD Primary Care Provider [phone] Encounter Details Date Type Department Care Team (Latest Contact Info) Description 11/04/2024 Lab Requisition [facility] - Main Lab [address] [facility] [place] [address] Rinku Desai MD [address] [place] [address] Postmenopausal bleeding Social History Tobacco Use Types Packs/Day Years [...] on file documented as of this encounter Plan of Treatment Upcoming Encounters Date Type Department Care Team (Late st Contact Info) Description 01/03/2025 11:00 AM EST Appointment [facility] Endoscopy [address] [place] [phone] Joe Nash DO 175 [facility] [address] [place] [address] 04/08/2025 10:20 AM EST Office Visit Breast Care [facility] [address] [place] [phone] Rinku Desai MD [address] [place] [address] documented as of this encounter Procedures Procedure Name Priority Date/Time Associated Diagnosis Comments AP OUTSIDE CONSULT Routine 11/04/2024 Postmenopausal bleeding documented in this encounter Results * Anatomic pathology outside consult (11/04/2024) Final Diagnosis A. Endometrial polyp ([id number], 09/13/24): Benign endometrial polyp with mucinous metaplasia without atypical features Inactive endometrium with underlying myometrium No neoplasm or carcinoma identified B. Endometrial curettings ([id number], 09/13/24): Inactive endometrium No endometrial hyperplasia or neoplasm identified 11/12/2024 1:50 PM EDT [facility] at 1350 EDT Comment A. Endometrial polyps are hyperplastic by nature and thus non-atypical endometrial hyperplasia/non-e ndometrioid intraepithelial neoplasm (EIN) is an expected finding. No changes to suggest atypical endometrial hyperplasia/EIN are identified. 11/12/2024 1:50 PM EDT [facility] Clinical Information Postmenopausal bleeding Endometrial polyp Per Dr. Grant Villeda's operative note from 09/13/24, only a single endometrial polyp was identified 11/12/2024 1:50 PM EDT [facility] Gross Description A. Endometrium, Polyp: Received from [facility], Department of Pathology are 2 slides (A1-level 1, A1-level 2) for consultative opinion. B. Endometrium, Curretage: Received from [facility], Department of Pathology is 1 slide (B1-level 1-2) for consultative opinion. 11/12/2024 1:50 PM EDT [facility] Disclaimer Unless otherwise specified, all tissue is 10% NB formalin fixed and paraffin embedded. 11/12/2024 1:50 PM EDT [facility] Tissue Endometrial structure / Unknown 11/04/2024 11/04/2024 2:58 PM EDT Tissue specimen (specimen) Endometrial structure / Unknown 11/04/2024 11/04/2024 2:58 PM EDT us Rinku Desai MD LAB PATHOLOGY ORDERABLES Final R esult [facility] [address] [place] [address], documented in this encounter Visit Diagnoses Diagnosis Postmenopausal bleeding documented in this encounter Care Teams Director Of Field Service Relationship Specialty Start Date End Date Yessi Delaney MD [address] [place] [address] PCP - General 12/12/23 documented as of this encounter
--- OUTSIDE RECORDS SUMMARY | 2024-12-06 14:09 | XMS_ITS | Clinical Summary ---
Author Organization [facility] Address [address] [place] [address] Phone Care Team Providers Care Supervisor Pumping Name Role Phone Mitra Brown MD Primary Care Provider [phone] Allergies No known active allergies Medications diclofenac [...] topic Medical Devices Not on file [place] [address] [facility] [place] [address] [place] [address] [place] [address] [address] [place] [address] [place] [address] [place] [address] [place] [address] [place] [address] [place] [address] [place] [address] [place] [address] [facility] [facility] ACO Care Teams Supervisor Pumping Relationship Specialty Start Date End Date Mitra Brown MD [address] [place] [address] PCP - General Internal Medicine 07/02/21 Additional Source Comments The information contained in this document represents components of the legal health record. It is not the complete legal health record.[facility]
== END 2024-12-06 12:44 | disposition home or self-care (01) ==
LOC: HO.HSM 11:53
PROVIDERS: PCP Internal Medicine; Visit Provider Nurse Practitioner
DX: G43.709 Chronic migraine without aura, not intractable, without status migrainosus (principal)
CPT/HCPCS: 99213

== ENCOUNTER → 2024-12-06 11:52 | Outpatient (BNVA) | payer OTHER, SELFPAY | PROVIDERS: PCP Internal Medicine; Visit Provider Nurse Practitioner | DX: G43.709 Chronic migraine without aura, not intractable, without status migrainosus (principal) | CPT/HCPCS: 99212 ==

== ENCOUNTER 2025-01-06 09:51 | Outpatient (AMB) | payer OTHER, SELFPAY ==
--- OUTSIDE RECORDS SUMMARY | 2025-01-03 10:09 | XMS_ITS | Encounter Summary ---
Demographics Address [address] [place] [address] Mobile Phone Home Phone Preferred Language en Marital Status Single Denominational Affiliation Unknown Race Other Race Ethnic Group or Author Organization [facility] Address [address] [place] [address] Care Team Providers Care International Controller Name Role Phone Yessi Delaney MD Primary Care Provider Reason for Referral * Hospital - Outpatient (Routine) - Authorized Specialty Diagnoses / Procedures Referred By Janelle patel Referred To Contact Gastroenterology Diagnoses Positive colorectal cancer screening using Cologuard test Procedures COLONOSCOPY Anesthesia - MAC; [facility] ENDOSCOPY David Nash DO [address] [facility] [address] [place] [address] Phone: tel: fax: [facility] Endoscopy [address] [place] [address] Phone: tel: Referral ID Status Reason Start Date Expiration Date V isits Requested Visits Authorized [id number] Authorized 11/14/2024 11/14/2025 1 1 Reason for Visit * Auth/Cert (Routine) Specialty Diagnoses / Procedures Referred By Janelle patel Referred To Contact Diagnoses Other fecal abnormalities Procedures COLONOSCOPY OR COLONOSCOPY FLEXIBLE DIAGNOSTIC W COLLECTION SPECIMEN BRUSHING/WASHING [facility] Endoscopy [address] [place] [address] Phone: tel: Referral ID Status Reason Start Date Expiration Date Visits Re quested Visits Authorized [id number] 1 1 Encounter Details Date Type Department Care Team (Latest Contact Info) Description 01/03/2025 10:09 AM EST Hospital Encounter [facility] Endoscopy [address] [place] [address] David Nash DO [address] [facility] [address] [place] [address] Babar Hager, HIREN [address] [place] [address] Positive colorectal cancer screening using Cologuard test Social History Tobacco Use Types Packs/Day Years Used Date Smoking Tobacco: Never Smokeless Tobacco: Never Alcohol Use Standard Drinks/Week Comments Not Currently 0 (1 standard drink = 0.6 oz pur e alcohol) Interpersonal Safety Answer Date Record ed Physical Abuse Unrecognized value 01/03/2025 Verbal Abuse Unrecognized value 01/03/2025 Comments Unknown Sex and Gender Information Value Date Recorded Sex Assigned at Not on file Legal Sex Female 5:45 AM EST Gender Identity Not on file Sexual Orientation Not on file documented as of this encounter Last Filed Vital Signs Vital Sign Reading Time Taken Comments Blood Pressure 125/72 01/03/2025 11:23 AM EST Pulse 78 01/03/2025 11:23 AM EST Temperature 36.1 C (97 F) 01/03/2025 11:03 AM EST Respiratory Rate 14 01/03/2025 11:23 AM EST Oxygen Saturation 100% 01/03/2025 11:23 AM EST Inhaled Oxygen Concentration - - Weight 86.2 kg (190 lb) 01/03/2025 10:26 AM EST Height 157.5 cm (5' 2 ) 01/03/2025 10:26 AM EST Body Mass Index 34.75 01/03/2025 10:26 AM EST documented in this encounter Progress Notes * Gaurav Turcios RN - 01/03/2025 11:38 AM EST Problem: Cognitive:Periop Procedure - Minor Goal: Knowledge of disease or condition will improve Outcome: Adequate for Discharge Problem: Sensory:Periop Procedure - Minor Goal: Demonstrates/reports adequate pain control Outcome: Adequate for Discharge Problem: Cognitive: Alexandrea Rendon Fall Risk Goal: Last Known Fall Outcome: Adequate for Discharge Goal: Mobility requiring assistance of person or device Outcome: Adequate for Discharge Goal: Dizziness Outcome: Adequate for Discharge Goal: Medications Outcome: Adequate for Discharge Goal: Mental Status/LOC/Awareness Outcome: Adequate for Discharge Goal: Toileting Needs Outcome: Adequate for Discharge Goal: Volume and Electrolyte Status Outcome: Adequate for Discharge Goal: Communication/Sensory Outcome: Adequate for Discharge Goal: Behavior Outcome: Adequate for Discharge Patient tolerated fluids and snacks well. Pt. Meets criteria for discharge. * Jhon Og RN - 01/03/2025 11:00 AM EST Problem: Cognitive:Periop Procedure - Minor Goal: Knowledge of disease or condition will improve Outcome: Progressing Problem: Sensory:Periop Procedure - Minor Goal: Demonstrates/reports adequate pain control Outcome: Progressing documented in this encounter H&P Notes * David Nash DO - 01/03/2025 11:00 AM EST Pre-Op Diagnosis: positive cologuard Proposed Procedure: colonoscopy Performing Surgeon/MD/Endoscopist: David Nash DO Medical/History: Medical History[1]Surgical History[2] Medications/Allergies: Prior to Admission medications Medication Sig Start Date End Date Taking? Authorizing Provider albuterol HFA (ProAir HFA) 90 mcg/actuation inhaler Inhale by mouth. 04/05/19 Historical Provider, bisacodyL (DULCOLAX) 5 mg EC tablet Take 2 tablets by mouth right before beginning bowel prep. See instructions provided by the office 12/23/24 Karyn Ferrell NP cetirizine (ZyrTEC) 10 mg tablet Take 1 tablet (10 mg total) by mouth 1 (one) time each day. Historical Provider, cholecalciferol (VITAMIN D-3) 50 mcg (2,000 unit) tablet Take 1 tablet (2,000 Units total) by mouth1 (one) time each day. 07/18/24 Historical Provider, clonazePAM (KlonoPIN) 0.5 mg tablet TAKE ONE TABLET BY MOUTH EVERY DAY NEEDED FOR SEVERE ANXIETY. MAY REPEAT DOSE IF NEEDED. MAX 2 TABLETS PER DAY 08/15/24 Historical Provider, cyclobenzaprine (FLEXERIL) 5 mg tablet TAKE ONE TABLET BY MOUTH DAILY AT BEDTIME NEEDED FOR MUSCLE SPASM 10/16/24 Historical Provider, DULoxetine (CYMBALTA) [address] capsule Take 1 capsule (20 mg total) by mouth 1 (one) time each day in the morning. 01/26/24 Historical ProviderMD frelaloezumab-vfrm (Ajovy Autoinjector) 225 mg/1.5 mL auto-injector Inject 1.5 mL (225 mg total) under the skin. 07/23/24 Historical Provider, levothyroxine (SYNTHROID, LEVOTHROID) 50 mcg tablet Take 1 tablet (50 mcg total) by mouth 1 (one) time each day. Historical Provider, lovastatin (MEVACOR) 40 mg tablet Take 1 tablet (40 mg total) by mouth daily. Historical Provider, omeprazole (PRILOSEC) 20 mg tablet,delayed release (DR/EC) Take 1 tablet (20 mg total) by mouth daily. Historical Provider, polyethylene glycol (Golytely) 236-22.74-6.74 -5.86 gram solution Take 4L by mouth once for one dose. May substitue any PEG. Starting at 2PM the day before your procedure drink 1 8oz glasses at your own pace until you complete half of the gallon. Finish 2nd half of the gallon at 8PM. 12/23/24 Karyn Ferrell NP rizatriptan (MAXALT) 10 mg tablet Take 1 tablet (10 mg total) by mouth. 03/11/24 07/23/25 Historical Provider, zolpidem (AMBIEN) 10 mg tablet TAKE ONE TABLET BY MOUTH EVERY DAY AT 10P.M. 08/15/24 Historical Provider, Patient Age:64 y.o. Vitals: There were no vitals filed for this visit. Physical Exam: Mental Status: Clear HEENT: WNL Heart: WNL Lungs: WNL Abdomen: WNL Extremities: WNL Neuro: WNL Labs: Imaging: Diagnosis/Plan: colonoscopy [1] Past Medical History: Diagnosis Date Allergic rhinitis Asthma Chronic headache disorder Class 1 obesity 10/31/2024 Depression GERD (gastroesophageal reflux disease) Hypothyroidism Positive colorectal cancer screening using Cologuard test Vitamin D deficiency [2] Past Surgical History: Procedure Laterality Date DILATION AND CURETTAGE OF UTERUS 09/01/2016 Path: Fragments of adipose tissue. Scant endocervical epithelium. No endometrium. HYSTEROSCOPY W/ POLYPECTOMY 09/13/2024 Hysteroscopy, dilation curettage, and polypectomy. Dr. Grant Villeda, [facility] TUBAL LIGATION 1989 documented in this encounter Plan of Treatment Upcoming Encounters Date Type Department Care Team (Late st Contact Info) Description 04/08/2025 10:20 AM EST Office Visit [facility] [address] [place] [address] Rinku Desai MD [address] [place] [address] documented as of this encounter Goals Goal Patient Goal Type Associated Problems Recent Progress Patient-Stated? Author Autogenera kel Goal Care Plan Autogenerated Problem No AndraeAngela perazabenji Gonzalez documented as of this encounter Procedures Procedure Name Priority Date/Time Associated Diagnosis Comments COLONOSCOPY Routine 01/03/2025 11:02 AM EST Positive colorectal cancer screening using Cologuard test TISSUE EXAM Routine 01/03/2025 10:55 AM EST Positive colorectal cancer screening using Cologuard test documented in this encounter Results * COLONOSCOPY Anesthesia - MAC; [facility] ENDOSCOPY (01/03/2025 11:02 AM EST) Anatomical Region Laterality Modality Endoscopy 01/03/2025 10:3 8 AM EST Impressions 01/03/2025 11:02 AM EST - One 3 mm polyp in the transverse colon, removed with a cold biopsy forceps. Resected and retrieved. - Three 6 to 9 mm polyps in the descending colon, removed with a cold snare. Resected and retrieved. - The examination was otherwise normal on direct and retroflexion views. Recommendation: - Discharge patient to home. - High fiber diet. - Continue present medications. - Await pathology results. - Repeat colonoscopy for surveillance based on pathology results. Narrative 01/03/2025 11:02 AM EST [facility] GI Patient Name: Shireen Valentin Procedure Date: 01/03/2025 10:38 AM Date of : 1960 Age: 64 Gender: Female Note Status: Finalized Attending MD: David Nash DO, [id number] Procedure Date No Time: 01/03/2025 Procedure: Colonoscopy Indications: Positive Cologuard test Providers: David Nash DO Referring MD: Yessi Delaney MD Medicines: Monitored Anesthesia Care Complications: No immediate complications. Estimated blood loss: Minimal. Estimated Blood Loss: Estimated blood loss was minimal. Procedure: Pre-Anesthesia Assessment: - - Prior to the procedure, a History and Physical was performed, and patient medications and allergies were reviewed. The patient is competent. The risks and benefits of the procedure and the sedation options and risks were discussed with the patient. All questions were answered and informed consent was obtained. Patient identification and proposed procedure were verified by the physician, the nurse, the anesthesiologist, the airplane pilot photogrammetry and the solar installation technician in the pre-procedure area in the endoscopy suite. Mental Status Examination: alert and oriented. Airway Examination: normal oropharyngeal airway and neck mobility. Respiratory Examination: clear to auscultation. CV Examination: normal. Prophylactic Antibiotics: The patient does not require prophylactic antibiotics. Prior Anticoagulants: The patient has taken no anticoagulant or antiplatelet agents. ASA Grade Assessment: II - A patient with mild systemic disease. After reviewing the risks and benefits, the patient was deemed in satisfactory condition to undergo the procedure. The anesthesia plan was to use monitored anesthesia care (MAC). Immediately prior to administration of medications, the patient was re-assessed for adequacy to receive sedatives. The heart rate, respiratory rate, oxygen saturations, blood pressure, adequacy of pulmonary ventilation, and response to care were monitored throughout the procedure. The physical status of the patient was re-assessed after the procedure. After I obtained informed consent, the scope was passed under direct vision. Throughout the procedure, the patient's blood pressure, pulse, and oxygen saturations were monitored continuously. The Colonoscope was introduced through the anus and advanced to the cecum, identified by appendiceal orifice and ileocecal valve. The colonoscopy was performed without difficulty. The patient tolerated the procedure well. The quality of the bowel preparation was good. Findings: Small internal hemorrhoids were found on retroflexion. A few small-mouthed diverticula were found in the sigmoid colon and descending colon. There was no evidence of diverticular bleeding. A 3 mm polyp was found in the transverse colon. The polyp was sessile. The polyp was removed with a cold biopsy forceps. Resection and retrieval were complete. Verification of patient identification for the specimen was done. Estimated blood loss was minimal. Three sessile polyps were found in the descending colon. The polyps were 6 to 9 mm in size. These polyps were removed with a cold snare. Resection and retrieval were complete. Verification of patient identification for the specimen was done. Estimated blood loss was minimal. The exam was otherwise without abnormality on direct and retroflexion views. Procedure Code(s): --- Professional --- 91355, Colonoscopy, flexible; with removal of tumor(s), polyp(s), or other lesion(s) by snare technique 20080, 59, Colonoscopy, flexible; with biopsy, single or multiple Diagnosis Code(s): --- Professional --- D12.3, Benign neoplasm of transverse colon (hepatic flexure or splenic flexure) D12.4, Benign neoplasm of descending colon R19.5, Other fecal abnormalities CPT copyright 2020 [employer]. All rights reserved. The codes documented in this report are preliminary and upon rf microwave engineer review may be revised to meet current compliance requirements. DAVID Nash DO 01/03/2025 11:02:20 AM This report has been signed electronically.David Nash DO Number of Addenda: 0 Note Initiated On: 01/03/2025 10:38 AM Scope Withdrawal Time: 0 hours 6 minutes 11 seconds Scope In: 10:51:56 AM Scope Out: 11:00:55 AM Endoscopy Department at [facility] - [address] [place] [id number] Procedure Note David Nash DO - 01/03/2025 [facility] GI Patient Name: Shireen Valentin Procedure Date: 01/03/2025 10:38 AM Date of : 1960 Age: 64 Gender: Female Note Status: Finalized Attending MD: David Nash DO, [id number] Procedure Date No Time: 01/03/2025 Procedure: Colonoscopy Indications: Positive Cologuard test Providers: David Nash DO Referring MD: Yessi Delaney MD Medicines: Monitored Anesthesia Care Complications: No immediate complications. Estimated blood loss: Minimal. Estimated Blood Loss: Estimated blood loss was minimal. Procedure: Pre-Anesthesia Assessment: - - Prior to the procedure, a History and Physicalwas performed, and patient medications and allergieswere reviewed. The patient is competent. The risks and benefits of the procedure and the sedation optionsand risks were discussed with the patient. Allquestions were answered and informed consent was obtained. Patient identification and proposed procedure were verified by the physician, the nurse, the anesthesiologist, the airplane pilot photogrammetry and thetechnician in the pre-procedure area in the endoscopy suite. Mental Status Examination: alert and oriented.Airway Examination: normal oropharyngeal airway and neck mobility. Respiratory Examination: clear to auscultation. CV Examination: normal. Prophylactic Antibiotics: The patient does not requireprophylactic antibiotics. Prior Anticoagulants: The patient has taken no anticoagulant or antiplatelet agents. ASA Grade Assessment: II - A patient with mild systemic disease. After reviewing the risks and benefits,the patient was deemed in satisfactory condition to undergo the procedure. The anesthesia plan was touse monitored anesthesia care (MAC). Immediately priorto administration of medications, the patient was re-assessed for adequacy to receive sedatives. The heart rate, respiratory rate, oxygen saturations, blood pressure, adequacy of pulmonary ventilation,and response to care were monitored throughout the procedure. The physical status of the patient was re-assessed after the procedure. After I obtained informed consent, the scope was passed under direct vision. Throughout theprocedure, the patient's blood pressure, pulse, and oxygen saturations were monitored continuously. The Colonoscope was introduced through the anus and advanced to the cecum, identified by appendiceal orifice and ileocecal valve. The colonoscopy was performed without difficulty. The patient tolerated the procedure well. The quality of the bowel preparation was good. Findings: Small internal hemorrhoids were found onretroflexion. A few small-mouthed diverticula were found in the sigmoid colon and descending colon. There was no evidence of diverticular bleeding. A 3 mm polyp was found in the transverse colon. The polyp was sessile. The polyp was removed with acold biopsy forceps. Resection and retrieval werecomplete. Verification of patient identification for the specimen was done. Estimated blood loss wasminimal. Three sessile polyps were found in the descending colon. The polyps were 6 to 9 mm in size. Thesepolyps were removed with a cold snare. Resection and retrieval were complete. Verification of patient identification for the specimen was done. Estimated blood loss was minimal. The exam was otherwise without abnormality ondirect and retroflexion views. Procedure Code(s): --- Professional --- 79179, Colonoscopy, flexible; with removal of tumor(s), polyp(s), or other lesion(s) by snare technique 33627, 59, Colonoscopy, flexible; with biopsy,single or multiple Diagnosis Code(s): --- Professional --- D12.3, Benign neoplasm of transverse colon (hepatic flexure or splenic flexure) D12.4, Benign neoplasm of descending colon R19.5, Other fecal abnormalities CPT copyright 2020 [employer]. All rights reserved. The codes documented in this report are preliminary and upon rf microwave engineer reviewmay be revised to meet current compliance requirements. DAVID Nash DO 01/03/2025 11:02:20 AM This report has been signed electronically.David Nash DO Number of Addenda: 0 Note Initiated On: 01/03/2025 10:38 AM Scope Withdrawal Time: 0 hours 6 minutes 11 seconds Scope In: 10:51:56 AM Scope Out: 11:00:55 AM Endoscopy Department at [facility] - [address] [place] [id number] IMPRESSION: - One 3 mm polyp in the transverse colon, removed with a cold biopsy forceps. Resected and retrieved. - Three 6 to 9 mm polyps in the descending colon, removed with a cold snare. Resected andretrieved. - The examination was otherwise normal on directand retroflexion views. Recommendation: - Discharge patient to home. - High fiber diet. - Continue present medications. - Await pathology results. - Repeat colonoscopy for surveillance based on pathology results. us David Nash DO GI~PROCEDURE ORDERABLES Final Re sult * Tissue exam (01/03/2025 10:55 AM EST) Final Diagnosis A. Large Intestine, Cecum, polyp x1: - Tubular adenoma. B. Large Intestine, Left/Descending Colon, polyps x3: - Tubular adenoma(s). 01/06/2025 10:29 AM EST [facility] at 1029 EST Gross Description A. Large Intestine, Cecum, polyp x 1: Labeled colon, cecum polyp x 1 . Received in formalin, is an approximately 0.6 cm, in greatest diameters, rubbery, sandoval to pink, polypoid tissue, which is inked green at the base, wrapped in paper and submitted in toto in one cassette, one piece, multiple levels. B. Large Intestine, Left/Descending Colon, polyp x 3: Labeled desc colon polyp x 3 . Received in formalin, are multiple irregular soft to rubbery, sandoval-pink less than 0.1tissue fragments, approximately ranging from less than 0.1 cm to 0.5 cm in greatest diameters and aggregating to 1.5 x 1.0 x 0.2 cm. The specimen is wrapped in paper and submitted in toto in one cassette, multiple pieces, multiple levels. Please note: Small tissue fragments may not survive processing. av/DG 01/06/2025 10:29 AM EST [facility] Disclaimer Unless otherwise specified, all tissue is 10% NB formalin fixed and paraffin embedded. 01/06/2025 10:29 AM EST [facility] Tissue Cecum structure / Unknown 01/03/2025 10:55 AM EST 01/03/2025 12:44 PM EST Tissue specimen (specimen) Descending colon structure / Unknown 01/03/2025 10:56 AM EST 01/03/2025 12:44 PM EST David Nash DO LAB PATHOLOGY ORDERABLES Final R esult [facility] [address] [place] [address], documented in this encounter Visit Diagnoses Diagnosis Positive colorectal cancer screening using Cologuard test documented in this encounter Historical Medications * This list may reflect changes made after this encounter. citalopram (CeleXA) 20 mg tablet Take 1 tablet (20 mg total) by mouth 1 (one) time each day. 12/31/2024 added in this encounter Additional Health Concerns Active Problems Noted Date Diagnosed Date Autogenerated Problem 11/14/2024 documented as of this encounter Care Teams International Controller Relationship Specialty Start Date End Date Yessi Delaney MD [address] [place] [address] PCP - General 12/12/23 documented as of this encounter
--- OUTSIDE RECORDS SUMMARY | 2025-01-03 10:46 | XMS_ITS | Encounter Summary ---
Demographics Address [address] [place] [address] Mobile Phone Home Phone Preferred Language en Marital Status Single Worship Affiliation Unknown Race Other Race Ethnic Group or Author Organization [employer] Address [address] [place] [address] Care Team Providers Care Lcpc Name Role Phone Yessi Delaney MD Primary Care Provider [phone] Reason for Visit * Auth/Cert (Routine) Specialty Diagnoses / Procedures Referred By Janelle patel Referred To Contact Diagnoses Other fecal abnormalities Procedures COLONOSCOPY OH COLONOSCOPY FLEXIBLE DIAGNOSTIC W COLLECTION SPECIMEN BRUSHING/WASHING [facility] [address] [place] [address] Phone: tel: Referral ID Status Reason Start Date Expiration Date Visits Re quested Visits Authorized [id number] 1 1 Encounter Details Date Type Department Care Team (Late st Contact Info) Description 01/03/2025 10:46 AM EST Anesthesia Event [facility] [address] [place] [address] Chevy Akers DO [address] [place] [address] Babar Hager, HIREN [address] [place] [id number] Anesthesia Record Procedure Summary Procedure Name Responsible Anesthesiologist Anesthesia Start Time Anesthesia Stop Time COLONOSCOPY Chevy Akers DO 01/03/25 1046 01/03/25 1105 Events Date Time Event Comment 01/03/2025 1022 AN Equip Check 1045 1046 An Start 1046 An Start Data The patient wa s reevaluated immediately before moderate or deep sedation use and before anesthesia induction. 1046 Anesthesia Ready 1047 In Room 1101 an stop data 1102 Out of Room 1104 Handoff to RN I completed my handoff to the receiving nurse during which we: 1. Identified the patient 2. Identified the responsible provider 3. Reviewed the pertinent medical history 4. Discussed the surgical course 5. Reviewed intra-op anesthesia management and issues during anesthesia 6. Set expectations for post-procedure period 7. Allowed opportunity for questions and acknowledgement of understanding. 1105 An Stop Meds Name Total propofol (DIPRIVAN) injection 10 mg/mL 2 00 mg lactated Ringer's infusion 400 mL * Agents No agents on file. * Blood No blood administrations on file. Lines, Drains, and Airways Type Details Placement Removal Peripheral IV Placement Date: 12/15 03/09; Placement Time: 1026; Catheter Size: 20 G; Orientation: Posterior, Right; Location: Hand; Insertion Attempts: 1; Patient Tolerance: Tolerated well; Removal Date: 01/03/25; Removal Time: 1137 01/03/25 1026 by Jhon Og RN 01/03/25 1137 by Gaurav Turcios RN documented in this encounter Social History Tobacco Use Types Packs/Day Years [...] on file documented as of this encounter Progress Notes * Chevy Akers DO - 01/05/2025 7:13 AM EST Patient: Shireen Valentin Procedure Summary Date: 01/03/25 Room / Location: [facility] Anesthesia Start: 1046 Anesthesia Stop: 110 Procedure: COLONOSCOPY Diagnosis: Positive colorectal cancer screening using Cologuard test (Cologuard Test Positive) Scheduled Providers: Joe Nash DO; Babar Hager CRNA; Sean De León MD Responsible Provider: Chevy Akers DO Anesthesia Type: MAC ASA Status: 2 Anesthesia Plan: MAC Last Vitals: Vitals Value Taken Time BP 125/72 01/03/25 11:23 Temp 36.1 ??C (97 ??F) 01/03/25 11:03 Pulse 78 01/03/25 11:23 Resp 14 01/03/25 11:23 SpO2 100 % 01/03/25 11:23 No data recorded Anesthesia Post Evaluation Patient location during evaluation: PACU Patient participation: complete - patient participated Level of consciousness: awake and alert Pain management: adequate Airway patency: patent Anesthetic complications: no Cardiovascular status: acceptable Respiratory status: acceptable Hydration status: acceptable Comments: Post anesthetic care is complete. The patient may be released per ASPAN standards. No apparent anesthetic complications are noted. As a part of normal post anesthetic care the following were addressed: respiratory and cardiac function, mental status, body temperature, pain, nausea and vomiting, hydration. Post op note late due to patient care responsibilities Nausea: No Vomiting: No There were no known notable events for this encounter. * Chevy Akers DO - 01/03/2025 10:40 AM EST Relevant Problems Cardio (+) Migraine headache Pulmonary (+) Asthma Neuro/Psych (+) Migraine headache Endo (+) Hypothyroidism GI (+) GERD (gastroesophageal reflux disease) Clinical information reviewed: Tobacco Allergies Meds Med Hx Surg Hx Anesthesia Plan ASA 2 Anesthesia Plan: MAC Anesthesia Risks Discussed dental injury, serious complications, allergic reaction, nausea, pain, sore throat and corneal abrasion Induction method: N/A Anesthetic plan and risks discussed with patient. Anesthesia Plan discussed with attending. Anesthesia Evaluation Patient summary reviewed and Nursing notes reviewed No history of anesthetic complications Airway Mallampati: II Thyromental distance: > 3 finger breadths Neck ROM: full Dental - normal exam Pulmonary - normal exam breath sounds clear to auscultation (+) asthma (-) COPD, sleep apnea Cardiovascular - normal exam Exercise tolerance: good (-) hypertension, past LA, CAD, angina, CIFUENTES Rhythm: regular Rate: normal Neuro/Psych (+) headaches (Migraine), psychiatric history (Depresion) (-) seizures, TIA, CVA GI/Hepatic/Renal (+) GERD (-) liver disease, renal disease Endo/Other (+) hypothyroidism (-) diabetes mellitus Abdominal PONV RISK SCORE: 2 Vitals: 01/03/25 1026 BP: 117/72 Pulse: 88 Resp: 20 Temp: 36.7 ??C (98 ??F) SpO2: 98% Weight: 86.2 kg (190 lb) Height: 1.575 m (62 ) SpO2 Readings from Last 1 Encounters: 01/03/25 98% No results found for: WBC , RBC , HGB , HCT , PLT , MCV Allergies[1] STOP BANG: No data recorded NPO Status: Time of Last Liquid: 0600 Time of Last Solid: 1000 [1] No Known Allergies documented in this encounter Plan of Treatment Upcoming Encounters Date Type Department Care Team (Late st Contact Info) Description 04/08/2025 10:20 AM EST Office Visit Breast Care [facility] [address] [place] [id number] Rinku Desai MD [address] [place] [address] documented as of this encounter Goals Goal Patient Goal Type Associated Problems Recent Progress Patient-Stated? Author Autogenera kel Goal Care Plan Autogenerated Problem No Jami Aebbe documented as of this encounter Visit Diagnoses Not on filedocumented in this encounter Administered Medications Inactive Administered Medications - up to 3 most recent administrations Medication Order MAR Action Action Date Dose Rate Site lactated Ringer's infusion intravenous, Continuous PRN, Starting on Mon01/03/25 at 1016, Anesthesia Intraprocedure New Bag 01/03/2025 10:16 AM EST propofoL (DIPRIVAN) injection intravenous, As needed, Starting on Mon01/03/25 at 1049, Anesthesia Intraprocedure Given 01/03/2025 10:57 AM EST 40 mg Given 01/03/2025 10:53 AM EST 40 mg Given 01/03/2025 10:51 AM EST 20 mg documented in this encounter Additional Health Concerns Active Problems Noted Date Diagnosed Date Autogenerated Problem 11/14/2024 documented as of this encounter Care Teams Lcpc Relationship Specialty Start Date End Date Yessi Delaney MD [address] [place] [address] PCP - General 12/12/23 documented as of this encounter
--- NOTE | 2025-01-06 09:52 | MHC.OFFVIS ---
Vital Signs 01/06/25 09:56 Height 5 ft 2 in Weight 190 lb BMI 34.7 BP 124/70 Blood Pressure Location Lt brachial Position Sitting Respiration 16 Pulse 70 Pulse Source Pulse Oximeter Pulse Oximetry (%) 99 Oxygen Delivery Method Room Air Intake Visit Reasons: ajovy injection Director Of Programming Required: No Allergies No Known Allergies (No Known Allergies*) Allergy (Verified 01/06/25 09:58) HPI Comments Details: Shireen is a 64-year-old female patient with a past medical history of obesity and vitamin-D deficiency who is followed in Neurology for her chronic migraine. To review, she has tried several medications for both prevention and abortive measures for migraine. Many in the past have been effective initially and over time the effects wore off. Her migraines historically have been daily but waxing and waning in severity. They are generally accompanied by photophobia, phonophobia, nausea, dizziness, and irritability. Her primary location for pain is the occipital areas radiating abortive toward the top of the head. Often times her migraines would favor the left side. In October, we started her on Ajovy. She is here today for her 3rd Ajovy injection and a brief update. At the time of her last visit, she had reported significant relief in her headaches with very minimal breakthrough headaches and they were very mild. She did have a couple of breakthrough headaches leading up to her next injection likely due to wearing off of the medication but aside from this she had a very good month. She had not had any side effects of the medication that she was aware of. This month however she reports that she had a very brief improvement in her headaches after her last injection but unfortunately over the course of the month had some worsening of headaches. Headaches at Current are daily and holocephalic with light and sound sensitivity and some nausea. She did take her diclofenac but did not take it until a few days after her headache onset. She also notes that she did have some foot pain for which she was prescribed a steroid in the steroid did not provide her any headache relief. She also tells me that the injection was denied by insurance and in the the prior authorization is to be submitted before she can continue. I did provide her with a sample injection today to bridge the gap. Lot number [id number] an expiration date . Ajovy injection by this nurse practitioner. It was given per directions on package labeling. The site that was injected was the subcutaneous area to the left upper extremity. Prior medication trials have included: Amitriptyline-through psychiatry without improvement in headache Topiramate 50 mg daily-ineffective also causing adverse effects Propranolol 20 mg twice daily-no improvement Mirtazapine -through psychiatry without improvement in headache Lamictal Gabapentin Verapamil Riboflavin Depakote 500 mg twice daily no improvement Aimovig -worked initially and became ineffective Emgality -worked initially and became ineffective Namenda-tried this through the [facility] in [place] for both headache and memory. No improvement. Maxalt-ineffective Nurtec -ineffective Diclofenac-still taking. Has taken twice daily for the past 2 weeks Prior workup: MRI of the brain without contrast 06/24/2017 performed at [facility]: Normal MRI of the brain without contrast [facility] Medical History (Updated 11/22/24 @ 15:23 by Yessi Delaney MD) Migraine Depression, major, recurrent, moderate Vitamin D deficiency Positive colorectal cancer screening using Cologuard test Fibroid Hypothyroidism Asthma Chronic GERD Headache syndrome Surgical History History of dilatation and curettage History of endometrial biopsy History of tubal ligation Family History Father CVD (cardiovascular disease) Arthritis Mother Lung cancer Brother Esophageal cancer Mental health disorder Sister Throat cancer Social History Household Members: None Housing: Apartment Alcohol intake: current Alcohol intake frequency: does not drink Patient Tobacco Use Status: Never used Tobacco e-Cigarette/Vaping Use: Never Used service: No Current occupational 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 Sexual orientation: Straight/Heterosexual Gender identity: Female Cognitive needs: No Hearing needs: No Vision needs: Yes Review of Systems Const All systems reviewed & are unremarkable except as noted in HPI and below Physical Exam Const General: cooperative, healthy appearing, comfortable and no acute distress Nutritional Appearance: well nourished Orientation/consciousness: patient oriented x3 Limitations: no limitations HEENT Head: Yes normal to inspection and Yes normocephalic Neuro General: patient oriented x3 Cognition (Neuro): normal cognition Gait exam (Neuro): Normal gait present Romberg Test: Negative Psych Appearance: grossly normal Mental Status: mental status grossly normal Speech and movement: Normal speech and movement present and Clear speech present Affect: normal affect Attitude: cooperative Thought process: Normal thought process present Thought content: Normal thought content present Insight: Good insight present (Psych) Judgement: Good judgement present (Psych) Assessment & Plan Assessment & Plan (1) Chronic migraine without aura without status migrainosus, not intractable: Code(s): G43.709 - Chronic migraine without aura, not intractable, without status migrainosus Category: Medical Plan Shireen is a 64-year-old female patient with a past medical history of obesity and vitamin-D deficiency who is followed in Neurology for her chronic migraine. She has tried several means of therapy to control her migraines without much improvement aside from the Ajovy injections. She had tried in the past with some relief and we did a retrial. Last month, she had a profound benefit. This months benefit is less profound however she did have some situational health issues that arose that may have contributed. It is also still slightly early to re-evaluate. Unfortunately, insurance change their guidelines a denied her injection. I did provide her with a sample injection today to bridge the gap. I am hoping that insurance will reconsider approving her Ajovy injection provided that she has had some benefit with it and I would like to continue for at least another few months before determining true efficacy. She has already tried Aimovig and Emgality without any benefit in the past. -Ajovy injection given today ( sample used as pt was not able to obtain her injection from pharmacy Lot number [id number] an expiration date .) -consider zavspret in future for abortive relief -can continue oral diclofenac as needed for now -follow up in 1 month Coding Level of Care Code Est Pt Level 4 (53003) Diagnoses Chronic migraine without aura without status migrainosus, not intractable G43.709
[2025-01-06 09:56] VITALS: BP 124/70; PULSE 70; RESP 16; O2SAT 99; BMI 34.7
--- OUTSIDE RECORDS SUMMARY | 2025-01-06 11:40 | XMS_ITS | Clinical Summary ---
Author Organization [facility] Address [address] [place] [address] Phone Care Team Providers Care President/[employer] Live Experiences Name Role Phone Mitra Brown MD Primary Care Provider [phone] Allergies No known active allergies Medications diclofenac [...] topic Medical Devices Not on file [place] [address] [address] [place] [address] [facility] [place] [address] [place] [address] [place] [address] [place] [address] [place] [address] [address] [place] [address] [address] [place] [address] [place] [address] [place] [address] [facility] Care Teams President/Gm Production & Live Experiences Relationship Specialty Start Date End Date Mitra Brown MD [address] [place] [address] PCP - General Internal Medicine 07/02/21 Additional Source Comments The information contained in this document represents components of the legal health record. It is not the complete legal health record.[facility]
--- OUTSIDE RECORDS SUMMARY | 2025-01-06 11:40 | XMS_ITS | Encounter Summary ---
Demographics Address [address] [place] [address] Mobile Phone Home Phone Preferred Language en Marital Status Single Mandaeism Affiliation Unknown Race Other Race Ethnic Group or Author Organization [facility] Address [address] [place] [address] Care Team Providers Care International Accountant Name Role Phone Yessi Delaney MD Primary Care Provider [phone] Encounter Details Date Type Department Care Team (Latest Contact Info) Description 11/04/2024 Lab Requisition [facility] [address] [facility] [place] [phone] Rinku Desai MD [address] [place] [address] Postmenopausal bleeding Social History Tobacco Use Types [...] 10:20 AM EST Office Visit [facility] [address] [place] [phone] Rinku Desai MD [address] [place] [address] documented as of this encounter Procedures Procedure Name Priority Date/Time Associated Diagnosis Comments AP OUTSIDE CONSULT Routine 11/04/2024 Postmenopausal bleeding documented in this encounter Results * Anatomic pathology outside consult (11/04/2024) Final Diagnosis A. Endometrial polyp ([id number], 09/13/24): Benign endometrial polyp with mucinous metaplasia without atypical features Inactive endometrium with underlying myometrium No neoplasm or carcinoma identified B. Endometrial curettings ([id number], 09/13/24): Inactive endometrium No endometrial hyperplasia or neoplasm identified 11/12/2024 1:50 PM EDT [facility] at 1350 EDT Comment A. Endometrial polyps are hyperplastic by nature and thus non-atypical endometrial hyperplasia/non-e ndometrioid intraepithelial neoplasm (EIN) is an expected finding. No changes to suggest atypical endometrial hyperplasia/EIN are identified. 11/12/2024 1:50 PM EDT [facility] Clinical Information Postmenopausal bleeding Endometrial polyp Per Dr. Grant Villeda's operative note from 09/13/24, only a single endometrial polyp was identified 11/12/2024 1:50 PM EDT [facility] Gross Description A. Endometrium, Polyp: Received from [facility], Department of Pathology are 2 slides (A1-level 1, A1-level 2) for consultative opinion. B. Endometrium, Curretage: Received from [facility], Department of Pathology is 1 slide (B1-level 1-2) for consultative opinion. 11/12/2024 1:50 PM EDT [facility] Disclaimer Unless otherwise [...] R esult [facility] [place] [address], documented in this encounter Visit Diagnoses Diagnosis Postmenopausal bleeding documented in this encounter Care Teams International Accountant Relationship Specialty Start Date End Date Yessi Delaney MD [address] [place] [address] PCP - General 12/12/23 documented as of this encounter
--- OUTSIDE RECORDS SUMMARY | 2025-01-06 11:41 | XMS_ITS | Encounter Summary ---
Demographics Address [address] [place] [address] Mobile Phone Home Phone Preferred Language en Marital Status Single Evangelical Affiliation Unknown Race Other Race Ethnic Group or Author Organization [employer] Address [address] [place] [address] Care Team Providers Care Crop Or Grain Farmer Name Role Phone Yessi Delaney MD Primary Care Provider [phone] Encounter Details Date Type Department Care Team ([facility] st Contact Info) Description 01/06/2025 Results Follow-Up Gastroenterology - [address] [address] Joe Nash DO [address] [address] Social History Tobacco Use Types Packs/Day Years [...] as of this encounter Progress Notes * Joe Nash DO - 01/06/2025 11:08 AM EST Please let the patient know that the colon polyp removed was benign, but precancerous. Given the type of polyps, and based on current guidelines, I recommend that a surveillance colonoscopy is performed in [address] a reminder on the system for the patient to be contacted to have a surveillance colonoscopy in 3 years. High-fiber diet and avoidance of processed foods recommended. Thank you. documented in this encounter Plan of Treatment Upcoming Encounters Date Type Department Care Team (Late st Contact Info) Description 04/08/2025 10:20 AM EST Office Visit Breast Care [facility] [address] [place] [address] Rinku Desai MD [address] [place] [address] documented as of this encounter Goals Goal Patient Goal Type Associated Problems Recent Progress Patient-Stated? Author Autogenera kel Goal Care Plan Autogenerated Problem No Jami Abebe documented as of this encounter Visit Diagnoses Not on filedocumented in this encounter Additional Health Concerns Active Problems Noted Date Diagnosed Date Autogenerated Problem 11/14/2024 documented as of this encounter Care Teams Crop Or Grain Farmer Relationship Specialty Start Date End Date Yessi Delaney MD [address] [place] [address] PCP - General 12/12/23 documented as of this encounter
--- OUTSIDE RECORDS SUMMARY | 2025-01-06 11:41 | XMS_ITS | Clinical Summary ---
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 Active cholecalcifero l (VITAMIN D-3) 50 mcg (2,000 unit) tablet Take 1 tablet (2,000 Units total) by mouth 1 (one) time each day. 5 Active clonazePAM (KlonoPIN) 0.5 mg tablet TAKE ONE TABLET BY MOUTH EVERY DAY NEEDED FOR SEVERE ANXIETY. MAY REPEAT DOSE IF NEEDED. MAX 2 TABLETS PER DAY 5 Active cyclobenzaprin e (FLEXERIL) 5 mg tablet TAKE ONE TABLET BY MOUTH DAILY AT BEDTIME NEEDED FOR MUSCLE SPASM 5 Active DULoxetine (CYMBALTA) [address] capsule Take 1 capsule (20 mg total) by mouth 1 (one) time each day in the morning. 4 Active fremanezumab-v frm (Ajovy Autoinjector) 225 mg/1.5 mL auto-injector Inject 1.5 mL (225 mg total) under the skin. 5 Active levothyroxine (SYNTHROID, LEVOTHROID) 50 mcg tablet [...] 1 tablet (10 mg total) by mouth. 5 07/24/19 26 Active zolpidem (AMBIEN) 10 mg tablet TAKE ONE TABLET BY MOUTH EVERY DAY AT 10P.M. 5 Active albuterol HFA (ProAir HFA) 90 mcg/actuation inhaler Inhale by mouth. 0 Active polyethylene glycol (Golytely) 236-22.74-6.74 -5.86 gram solution Take 4L by mouth once for one dose. May substitue any PEG. Starting at 2PM the day before your procedure drink 1 8oz glasses at your own pace until you complete half of the gallon. Finish 2nd half of the gallon at 8PM. 4000 mL 5 Active bisacodyL (DULCOLAX) 5 mg EC tablet Take 2 tablets by mouth right before beginning bowel prep. See instructions provided by the office 2 tablet 5 Active citalopram (CeleXA) 20 mg tablet Take 1 tablet (20 mg total) by mouth 1 (one) time each day. 5 Active ciprofloxacin (CIPRO) 500 mg tablet Take 1 tablet (500 mg total) by mouth 2 (two) times a day for 7 days. 14 each 5 12/13/19 25 Active Problems Problem Noted Date Diagnosed Date Pelvic pain 12/15/2024 Class 1 obesity 10/31/2024 Migraine headache 07/02/2021 Vitamin D deficiency 07/02/2021 Depression Allergic rhinitis Asthma GERD (gastroesophageal reflux disease) Hypothyroidism Positive colorectal cancer screening using Colog uard test Encounters Date Type Department Care Team Description 01/06/2025 Results Follow-Up Gastroenterology - [address] [facility] 299 [facility] [address] [place] [address] David Nash DO 01/03/2025 10:46 AM EST Anesthesia Event [facility] Endoscopy [address] [place] [address] Chevy Akers DO Kapplan, Jacob A, CRNA 01/03/2025 10:09 AM EST Hospital Encounter [facility] Endoscopy [address] [place] [phone] David Nash DO Kapplan, Jacob A, CRNA Positive colorectal cancer screening using Cologuard test 12/16/2024 Telephone Gastroenterology [facility] 175 [facility] 175 [facility] [address] [place] [phone] David Nash DO 12/05/2024 8:40 AM EDT Office Visit [address] [phone] Rinku Desai MD Pelvic pain (Primary Dx); Endometrial polyp 11/14/2024 Telephone Gastroenterology [facility] 175 [facility] [address] [phone] Rachael Shrestha MD 11/07/2024 11:51 AM EDT - 11/07/2024 11:59 PM EDT Hospital Encounter [facility] Ultrasound [address] [place] [phone] Dysuria; Post-menopausal bleeding Discharge Disposition: Home or Self Care 11/04/2024 Lab Requisition [facility] 299 [facility] [place] [phone] Rinku Desai MD Postmenopausal bleeding 10/31/2024 10:00 AM EDT Consult [address] [phone] Rinku Desai MD Post-menopausal bleeding (Primary Dx); [...] dilation curettage, and polypectomy. Dr. Grant Villeda, [facility] Medical History Medical History Date Comments Depression [...] Mass Index 34.75 01/03/2025 10:26 AM EST Plan of Treatment Upcoming Encounters Date Type Department Care Team (Late st Contact Info) Description 04/08/2025 10:20 AM EST Office Visit [facility] [address] [place] [phone] Rinku Desai MD [address] [place] [address] Health Maintenance Due Date Last Done Comments Breast Cancer Screening 1960 Pneumococcal Vaccine: 50+ Years (1 of 2 - PCV) 04/28/1978 Cervical Cancer Screening: P ap Smear 04/28/1980 RSV Immunization Adult Patients (1 - Risk 50-74 years 1-dose series) 04/28/2009 Zoster Vaccines (1 of 2) 04/28/2009 DTaP,Tdap,and Td Vaccines (3 - Td or Tdap) 11/14/2018 11/14/2008, 11/14/2008 Hepatitis C Screening 01/16/2022 Medicare Annual Wellness Visit 01/16/2022 Osteoporosis Screening (Bone Density Screening) 01/16/2022 Social Influencers of Health Screening 01/16/2022 Depression Screening 02/14/2024 COVID-19 Vaccine (2 - 2024-2 6 season) 2024 05/20/2020 Influenza Vaccine (#1) 2024 Falls Risk Assessment 01/03/2026 01/03/2025 Colorectal Cancer Screening: Colonoscopy 01/03/2035 01/03/2025 HIB Vaccines Aged Out No longer eligi [...] Positive colorectal cancer screening using Cologuard test US PELVIS NON OB COMPLETE W TRANSVAGINAL [...] Dysuria from Last 3 Months Results * COLONOSCOPY Anesthesia - [facility]; [facility] ENDOSCOPY (01/03/2025 11:02 AM EST) Anatomical [...] pathology results. Narrative 01/03/2025 11:02 AM EST [facility] GI Patient Name: Shireen Valentin Procedure Date: 01/03/2025 10:38 AM Date of : 1960 Age: 64 Gender: Female Note Status: Finalized Attending MD: David Nash DO, [id number] Procedure Date No Time: 01/03/2025 Procedure: Colonoscopy [...] the physician, the nurse, the anesthesiologist, the certified pathology assistant and the geologic technician in the pre-procedure area in the [...] retroflexion views. Procedure Code(s): --- Professional --- 99349, Colonoscopy, flexible; with removal of tumor(s), polyp(s), or other lesion(s) by snare technique [id number], 59, Colonoscopy, flexible; with biopsy, single or multiple Diagnosis Code(s): --- Professional --- D12.3, Benign neoplasm of transverse colon (hepatic flexure or splenic flexure) D12.4, Benign neoplasm of descending colon R19.5, Other fecal abnormalities CPT copyright 2020 [employer]. All rights reserved. The codes documented in this report are preliminary and upon senior benefits manager review may be revised to meet current compliance requirements. DAVID Nash DO 01/03/2025 11:02:20 AM This report has been signed electronically.David Nash DO Number of Addenda: 0 Note Initiated On: 01/03/2025 10:38 AM Scope Withdrawal Time: 0 hours 6 minutes 11 seconds Scope In: 10:51:56 AM Scope Out: 11:00:55 AM Endoscopy Department at [facility] - [address] [place] [phone] Procedure Note David Nash DO - 01/03/2025 [facility] GI Patient Name: Shireen Valentin Procedure Date: 01/03/2025 10:38 AM Date of : 1960 Age: 64 Gender: Female Note Status: Finalized Attending MD: David Nash DO, [id number] Procedure Date No Time: 01/03/2025 Procedure: Colonoscopy [...] the physician, the nurse, the anesthesiologist, the certified pathology assistant and thetechnician in the pre-procedure area in [...] retroflexion views. Procedure Code(s): --- Professional --- 67987, Colonoscopy, flexible; with removal of tumor(s), polyp(s), or other lesion(s) by snare technique [id number], 59, Colonoscopy, flexible; with biopsy,single or multiple Diagnosis Code(s): --- Professional --- D12.3, Benign neoplasm of transverse colon (hepatic flexure or splenic flexure) D12.4, Benign neoplasm of descending colon R19.5, Other fecal abnormalities CPT copyright 2020 [employer]. All rights reserved. The codes documented in this report are preliminary and upon senior benefits manager reviewmay be revised to meet current compliance requirements. DAVID Nash DO 01/03/2025 11:02:20 AM This report has been signed electronically.David Nash DO Number of Addenda: 0 Note Initiated On: 01/03/2025 10:38 AM Scope Withdrawal Time: 0 hours 6 minutes 11 seconds Scope In: 10:51:56 AM Scope Out: 11:00:55 AM Endoscopy Department at [facility] - [address] [place] [phone] IMPRESSION: - One 3 mm polyp in [...] colonoscopy for surveillance based on pathology results. David Nash DO GI~PROCEDURE ORDERABLES Final Re sult * Tissue exam (01/03/2025 10:55 AM EST) Final Diagnosis A. Large Intestine, Cecum, polyp x1: - Tubular adenoma. B. Large Intestine, Left/Descending Colon, polyps x3: - Tubular adenoma(s). 01/06/2025 10:29 AM EST [facility] at 1029 EST Gross Description A. [...] survive processing. av/DG 01/06/2025 10:29 AM EST [facility] Disclaimer Unless otherwise specified, all tissue is 10% NB formalin fixed and paraffin embedded. 01/06/2025 10:29 AM EST [facility] Tissue Cecum structure / Unknown 01/03/2025 10:55 AM EST 01/03/2025 12:44 PM EST Tissue specimen (specimen) Descending colon structure / Unknown 01/03/2025 10:56 AM EST 01/03/2025 12:44 PM EST us David Nash DO LAB PATHOLOGY ORDERABLES Final R esult [facility] [address] [place] [address], [place] [phone] * US Pelvis Non OB Complete w [...] double layer. 4. Ovaries not identified. Telerad DANIELLE ([id number]) -------- FINAL REPORT -------- Dictated By: Althea Corrales Dictated Date: 11/12/2024 15:48 ET Assigned Physician: Althea Corrales Reviewed and Electronically Signed By: Althea Corrales Signed Date: 11/12/2024 15:54 ET Workstation ID: [id number] Transcribed By: Self Edit Transcribed Date: 11/12/2024 [...] double layer. 4. Ovaries not identified. Telerad DANIELLE ([id number]) -------- FINAL REPORT -------- Dictated By: Althea Corrales Dictated Date: 11/12/2024 15:48 ET Assigned Physician: Althea Corrales Reviewed and Electronically Signed By: Althea Corrales Signed Date: 11/12/2024 15:54 ET Workstation ID: [id number] Transcribed By: Self Edit Transcribed Date: 11/12/2024 15:48 ET us Rinku Desai MD IMG US PROCEDURES Final Result * Anatomic pathology outside consult (11/04/2024) Final Diagnosis A. Endometrial polyp ([id number]-D, 09/13/24): Benign endometrial polyp with mucinous metaplasia without atypical features Inactive endometrium with underlying myometrium No neoplasm or carcinoma identified B. Endometrial curettings ([id number]-G, 09/13/24): Inactive endometrium No endometrial hyperplasia or neoplasm identified 11/12/2024 1:50 PM EDT [facility] at 1350 EDT Comment A. Endometrial polyps are hyperplastic by nature and thus non-atypical endometrial hyperplasia/non-e ndometrioid intraepithelial neoplasm (EIN) is an expected finding. No changes to suggest atypical endometrial hyperplasia/EIN are identified. 11/12/2024 1:50 PM EDT [facility] Clinical Information Postmenopausal bleeding Endometrial polyp Per Dr. Grant Villeda's operative note from 09/13/24, only a single endometrial polyp was identified 11/12/2024 1:50 PM EDT [facility] Gross Description A. Endometrium, Polyp: Received from [facility], Department of Pathology are 2 slides (A1-level 1, A1-level 2) for consultative opinion. B. Endometrium, Curretage: Received from [facility], Department of Pathology is 1 slide (B1-level 1-2) for consultative opinion. 11/12/2024 1:50 PM EDT [facility] Disclaimer Unless otherwise specified, all tissue is 10% NB formalin fixed and paraffin embedded. 11/12/2024 1:50 PM EDT [facility] Tissue Endometrial structure / Unknown 11/04/2024 11/04/2024 2:58 PM EDT Tissue specimen (specimen) Endometrial structure / Unknown 11/04/2024 11/04/2024 2:58 PM EDT us Rinku Desai MD LAB PATHOLOGY ORDERABLES Final R esult [facility] [address] [place] [address], [place] [phone] * (ABNORMAL) Urinalysis with reflex microscopic and culture (10/31/2024 10:35 AM EDT) Specific [place] Urine 1.026 1.003 - 1.030 LAB URINALYSIS - AUTOMATED METHOD 10/31/2024 3:35 PM EDT [facility] pH, Urine 7.0 5.0 - 8.0 pH LAB URINALYSIS - AUTOMATED METHOD 10/31/2024 3:35 PM EDT [facility] Leukocytes, Urine Trace(A) Negative LAB URINALYSIS - AUTOMATED METHOD 10/31/2024 3:35 PM EDT [facility] Nitrite, Urine Negative Negative LAB URINALYSIS - AUTOMATED METHOD 10/31/2024 3:35 PM EDT [facility] Protein, Urine Trace <=Trace mg/dL LAB URINALYSIS - AUTOMATED METHOD [facility] Glucose, Urine Negative Negative mg/dL LAB URINALYSIS - AUTOMATED METHOD 10/31/2024 3:35 PM [facility] Ketones, Urine Trace(A) Negative mg/dL LAB URINALYSIS - AUTOMATED METHOD 10/31/2024 3:35 PM [facility] Urobilinogen, Urine 1.0 0.2 - 1.0 mg/dL LAB URINALYSIS - AUTOMATED METHOD 10/31/2024 3:35 PM [facility] Bilirubin, Urine Negative Negative LAB URINALYSIS - AUTOMATED METHOD 10/31/2024 3:35 PM [facility] Blood, Urine Negative Negative LAB URINALYSIS - AUTOMATED METHOD 10/31/2024 3:35 PM [facility] RBC, Urine 3.5 0 - 4 /HPF LAB URINALYSIS - AUTOMATED METHOD 10/31/2024 3:35 PM [facility] WBC, Urine 3.5 0 - 4 /HPF LAB URINALYSIS - AUTOMATED METHOD 10/31/2024 3:35 PM [facility] Squamous Epithelial, Urine >100(H) 0 - 60 /LPF LAB URINALYSIS - AUTOMATED METHOD 10/31/2024 3:35 PM [facility] Bacteria, Urine Negative Negative /HPF LAB URINALYSIS - AUTOMATED METHOD 10/31/2024 3:35 PM [facility] Hyaline Casts, Urine 0.8 0 - 3 /LPF LAB URINALYSIS - AUTOMATED METHOD 10/31/2024 3:35 PM [facility] Urine Urine specimen obtained by clean catch procedure / Unknown Non-blood Collection / Unknown 10/31/2024 10:35 AM EDT 10/31/2024 3:07 PM EDT us Rinku Desai MD LAB URINE ORDERABLES Final Resul t [facility] [address] [place] [address], [place] [phone] * Tan urine culture tube (10/31/2024 10:35 AM EDT) Extra Tube Hold for add-ons. 10/31/2024 5:01 PM EDT [facility] Comment:Auto resulted. Urine Urine specimen obtained by clean catch procedure / Unknown Non-blood Collection / Unknown 10/31/2024 10:35 AM EDT 10/31/2024 3:07 PM EDT us Rinku Desai MD LAB URINE ORDERABLES Final Resul t Performing Organization Address [facility]/ZIP Co de Phone Number [facility] [address] [place] [address], [place] [phone] * Culture urine (10/31/2024 10:35 AM EDT) Culture, Urine No growth 11/01/2024 12:07 PM EDT [facility] Urine Urine specimen obtained by clean catch procedure / Unknown Non-blood Collection / Unknown 10/31/2024 10:35 AM EDT 10/31/2024 3:35 PM EDT us Rinku Desai MD LAB MICROBIOLOGY - GENERAL ORDER MARGOT Final Result [facility] [address] [place] [address], [place] [phone] from Last 3 Months Additional Health Concerns Active Problems Noted Date Diagnosed Date Autogenerated Problem 11/14/2024 Insurance * Guarantor: Shireen Valentin Account Type Relation to Patient Date of Phone Billing Address Personal/Family Self 1960 [address] [facility] [address] [place] [id number] [facility] MEDICARE Member Subscriber Plan / Payer (Ef fective 2024-Present) Name:Shireen Valentin Relation to Subscriber:Self Name:Shireen Valentin Payer ID:[id number] Group ID:[id number] Type:Not on file Address: [place] [address] [address] [phone] Care Teams Electric Motor Tester Relationship Specialty Start Date End Date Yessi Delaney MD [address] [place] [address] PCP - General 12/12/23
--- OUTSIDE RECORDS SUMMARY | 2025-01-06 11:41 | XMS_ITS | Continuity of Care Document ---
Author Organization [facility] [employer] [facility], [facility] Address [address] [place] [phone] Care Team Providers Care Supervisor Chlorine Liquefaction Name Role Phone HIM CCA OTHER Assessment Encounter Date Assessment Date Assessment LastModified by Organization Details LastModified Time 10/21/2024 10/21/2024 I provided real -time medical direction via phone for this encounter, and was available for additional phone based assistance as needed. I have reviewed and agree with the Assessment and Plan as documented by the Assistant Professor Of Criminal Justice. We discussed the diagnostic uncertainty of home visits and the risk associated with this. In this case the patient and I felt this to be an acceptable and reasonable amount of risk given the benefit of avoiding an ED visit. The patient given the opportunity to ask questions. Advised if develops difficulty swallowing/ sts lips, tongue, throat/ CP/severe SOB/turning blue/uncontrolle d n/v/d / AMS/ syncope/ hi fever to call 911- verbalized understanding of instruction [email or web address] Not available 10/21/2024 11:47:23 Plan of Treatment Reminders Order Date Submit Date Provider Last Modified By Organization Details Last Modified Time Details Appointments None recorded. Lab None recorded. Referral None recorded. Procedures None recorded. Surgeries None recorded. Imaging None recorded. Medication Orders cetirizine 10 mg tablet 2024 025 [facility], [address] [place], [address], 11:45:53 bacitracin 500 unit/gram topical ointment 2024 025 [facility], [address] [place], [address], 11:48:52 hydrocortis one 1 % topical cream 2024 025 [facility], [address] [facility], [place], [address], 11:48:51 Patient TargetsNo targets recorded. Patient InstructionsNo instructions recorded. Reason for Referral None Reported. Medical Equipment None Reported. Allergies No known drug allergies Medications Name Sig Start Date Stop Date Status Note LastModified by Organization Details LastModified Time divalproex 250 mg tablet,delay ed release TAKE ONE TABLET BY MOUTH TWICE A DAY FOR ACUTE MIGRAINE FOR 5 DAYS active Not Available Not Available N ot Available cetirizine 10 mg tablet TAKE ONE TABLET BY MOUTH EVERY DAY active Not Available Not Available No t Available Lidocaine Viscous 2 % mucosal solution SWISH AND SPIT WITH 5ML BY MOUTH TWO TIMES A DAY FOR 3 DAYS active Not Available Not Available N ot Available clonazepam 0.5 mg tablet TAKE ONE TABLET BY MOUTH EVERY DAY NEEDED FOR SEVERE ANXIETY. MAY REPEAT DOSE IF NEEDED. MAX 2 TABLETS PER DAY active Not Available Not Available No t Available rizatriptan 10 mg tablet TAKE 1 TABLET BY MOUTH DAILY NEEDED FOR MIGRAINE HEADACHE. MAY REPEAT DOSE EVERY 2 HOURS UP TO A MAXIMUM OF 3 TABLETS. active Not Available Not Available N ot Available bacitracin 500 unit/gram topical ointment APPLY SPARINGLY TO AFFECTED AREA S) THREE TIMES A DAY FOR RASH. DO NOT USE IN EYES OR MOUTH active Not Available Not Available No t Available omeprazole 40 mg capsule,geoffrey yed release TAKE ONE CAPSULE BY MOUTH EVERY DAY active Not Available Not Available No t Available citalopram 20 mg tablet TAKE ONE AND ONE-HALF TABLETS BY MOUTH EVERY MORNING active Not Available Not Available No t Available meclizine 25 mg tablet TAKE ONE TABLET BY MOUTH THREE TIMES A DAY active Not Available Not Available Not Available hydrocortiso ne 1 % topical cream APPLY A THIN LAYER TOPICALLY TO THE AFFECTED AREA S) 2-3 TIMES A DAY. DO NOT USE IN EYES OR MOUTH. APPLY SPARINGLY active Not Available Not Available No t Available lidocaine 5 % topical patch APPLY 1 PATCH TOPICALLY DAILY. LEAVE ON MOST PAINFUL AREA FOR UP TO 12 HOURS active Not Available Not Available Not Available diclofenac potassium 50 mg tablet TAKE ONE TABLET BY MOUTH TWICE A DAY WITH FOOD NEEDED FOR PAIN. USE SPARINGLY, NO MORE THAN 3-4 DOSES PER WEEK active Not Available Not Available No t Available diclofenac sodium 50 mg tablet,delay ed release TAKE ONE TABLET BY MOUTH EVERY 12 HOURS NEEDED FOR PAIN active Not Available Not Available No t Available zolpidem 10 mg tablet TAKE ONE TABLET BY MOUTH EVERY DAY AT 10P.M. active Not Available Not Available No t Available ondansetron 4 mg disintegrati ng tablet DISSOLVE ONE TABLET BY MOUTH EVERY 8 HOURS NEEDED FOR NAUSEA AND VOMITING 30 DAY SUPPLY) active Not Available Not Available Not Available cyclobenzapr ine 5 mg tablet TAKE ONE TABLET BY MOUTH DAILY AT BEDTIME NEEDED FOR MUSCLE SPASM active Not Available Not Available No t Available duloxetine 20 mg capsule,geoffrey yed release TAKE ONE CAPSULE BY MOUTH EVERY MORNING active Not Available Not Available No t Available cholecalcife rol (vitamin D3) 50 mcg (2,000 unit) tablet TAKE ONE TABLET BY MOUTH EVERY DAY active Not Available Not Available No t Available melatonin 10 mg tablet TAKE ONE TABLET BY MOUTH DAILY AT BEDTIME. TAKE AT 9:30P.M. HALF AN HOUR BEFORE TAKING AMBIEN active Not Available Not Available No t Available Ajovy 225 mg/1.5 mL subcutaneous auto-injecto r INJECT 225 MG 1.5 ML) SUBCUTANEOU SLY EVERY MONTH active Not Available Not Available No t Available Vitals Date Recorded Oxygen saturation Body weight Body height Respiratory rate Body temperature Heart rate Systolic And Diastolic Provider Name and Address Organization Details Last Updated DateTime 5 99 % 76804.8 88 g 157.48 cm 18 /min 97.8 [degF] 64 /min 124/76 mm[Hg] Not Available [employer] - production 5 11:44:06 Social History None recorded. Functional Status None recorded. Mental Status None recorded. Family History Nothing Reported. Medical History No medical history recorded. Gynecological HistoryNo gynecological history recorded. Obstetrics History GPAL:G 0 P 0 0 0 0 Past Encounters Encounter ID Performer Location Encounter Start Date Encounter Closed Date Diagnosis/Indication Diagnosis SNOMED-CT Code Diagnosis ICD10 Code Diagnosis IMO Codes Diagnosis Note [id number] Radha Friedman MD [facility] [address] [place] [address] 10/21/2024 11:43:56 10/22/2024 13:07:08 Pruritic rash 92360099 L28.2 [id number] advised patient the rash does not seem concerning , it is self-limit ed and improving. It is not tender/no signs of infection currently -reassured her and advised to watch for s/s infection. Advised patient I am not sure of the exact etiology of the rash although with the mild itching and no tenderness it is likely allergic-s he denies any exposure to any new foods, laundry detergents , personal hygiene products.r an out of cetirizine -Will refill to help with itchingSin ce she is doing well mixing hydrocorti sone and topical ABX advised to continue and we will refill -writing as prescripti ons for her will likely be covered. Advised to use sparingly and make sure she does not put any of the creams in her eyes or mouth. She verbalized understand ing Advised would need an in person follow-up with PCP if rash persisted or worsened Health Concerns Section Related Observation LastModified by Organization Detai ls LastModified Time None Recorded Concern Status LastModified by Organization Details LastModified Time None Recorded Payers Encounter Date Sequence Insurance Name Policy Number Policy Cerda Covered Member ID Cerda Member ID Guarantor Name 10/21/2024 1 [facility] - DOS ON OR AFTER 2022 - DUAL ELIGIBLE - RETIREMENT OPTIONS AND ONE CARE (MEDICARE REPLACEMENT/ADV ANTAGE - HMO) Shireen Valentin [id number] Shireen Valentin Notes Date Note Type Note Provider Name and Address Organization Details Recorded Time 5 text/html ROS as noted in the [facility] Nurse Triage Notes (Annie Michael - RN): Reason For Request: Pt reporting a rash on the upper region of her right arm> rash-itchiness which seem to be getting larger>notes there seem to be some of the same rash developing on the left leg>unable to see her dermatologistsAllergies to meds: NONEPMH: migraines, vertigo Patient Reports: Rash Denies: Rogers Flash, circumferential rogers Rogers reported with black tissue to the area Open skin area after a fall with uncontrolled bleeding Abscess/infection with streaking noted, presence of fever or without History of cellulitis, isolated redness noted Fever and chills noted in setting of wound Bites -bugs, spider Abscess Chief Complaints: Wound Care PMH: Migraine, Anxiety Disorder, Hypothyroidism PMH Reviewed at 10/21/2024 - 10:06 Allergies Reviewed at 10/21/2024 - 10:06 Comments: 64 y.o female complains of Wound Care patient self referring Patient noticed the areas on the outside of right arm smaller than a dime size , red and itchy and now developing on the left leg last and have gotten worse No known insect bites she thinks it may be allergies. Denies any kidney disease and denies being on any blood thinners. requesting insted assessment. I provided information on the mobile health provider response time and advised the patient and/or caregiver to monitor reported signs and symptoms. I discussed the warning signs of when to seek emergency care. ........................... ........................... ........................... ........................... ........................... ...... Assistant Professor Of Criminal Justice Note From Linda Solis: Sent to a call for a pt [...] eye; Lung sounds: clear bilaterally; Abdomen: soft, non-tender, no distention; Back: unremarkable; Extremities: right arm: papules noted; Skin: pink, warm, dry; [facility] consulted and pt states she has been prescribed cetirizine in past, but has been out for awhile. [facility] sends script to pt's pharmacy for antihistamine, hydrocortisone cream, and bacitracin. Pt is advised to use hydrocortisone and bacitracin three times a day, sparingly. Pt advised to be very careful not to get any cream or ointment in eye. Red flags discussed. Pt has no further questions. ........................... ........................... ........................... ........................... ........................... ...... [facility] Consulted: Radha Friedman ........................... ........................... ........................... ........................... ........................... ...... Disposition: Fulfilled Radha Friedman MD [address] [facility],[address], [place], [address], MagineSHAE ARIZMENDI 10/22/2024 00:39:12 OBGyn Episode No OBEpisode recorded.
--- OUTSIDE RECORDS SUMMARY | 2025-01-06 11:41 | XMS_ITS | Data Portability ---
Author Organization [place] [employer] [facility], [facility] Address [address] [place] [phone] Care Team Providers Care Head Of Sales And Marketing Name Role Phone HIM IMELDA OTHER Assessment Encounter Date Assessment Date Assessment LastModified by Organization Details LastModified Time 10/21/2024 10/21/2024 I provided real -time medical direction via phone for this encounter, and was available for additional phone based assistance as needed. I have reviewed and agree with the Assessment and Plan as documented by the Composition Roofer. We discussed the diagnostic uncertainty of home [...] to call 911- verbalized understanding of instruction [email or web address] Not available 10/21/2024 11:47:23 Plan of Treatment Reminders Order Date Submit Date Provider Last Modified By Organization Details Last Modified Time Details Appointments None recorded. Lab None recorded. Referral None recorded. Procedures None recorded. Surgeries None recorded. Imaging None recorded. Medication Orders cetirizine 10 mg tablet 2024 025 [facility], [address] [place], [address], 11:45:53 bacitracin 500 unit/gram topical ointment 2024 025 [facility], [address] [place], [address], 11:48:52 hydrocortis one 1 % topical cream 2024 025 [facility], [address] [facility], [place], [address], 5 11:48:51 Patient TargetsNo targets recorded. Patient InstructionsNo [...] Details Last Updated DateTime 5 99 % 10085.8 88 g 157.48 cm 18 /min 97.8 [...] ICD10 Code Diagnosis IMO Codes Diagnosis Note [id number] Radha Friedman MD [facility] ED Medical [facility] [address] [place] [address] 10/21/2024 11:43:56 10/22/2024 13:07:08 Pruritic rash [id number] L28.2 [id number] advised patient the rash does not seem [...] by Organization Details LastModified Time None Recorded Advance Directives Directive None Recorded Payers Insurance Date Sequence Insurance Name Policy Number Policy Cerda Covered Member ID Cerda Member ID Guarantor Name 10/21/2024 1 [facility] - DOS ON OR AFTER 2022 - DUAL ELIGIBLE - [facility] OPTIONS AND ONE CARE (MEDICARE REPLACEMENT/ADV ANTAGE - HMO) Shireen Valentin [id number] Shireen Valentin Notes Date Note Type Note Provider Name and Address Organization Details Recorded Time 5 text/html ROS as noted in the [facility] Nurse Triage Notes (Annie Michael - [...] 10/21/2024 - 10:06 Allergies Reviewed at 10/21/2024 10:06 Comments: 64 y.o female complains of [...] care. ........................... ........................... ........................... ........................... ........................... ...... Composition Roofer Note From Linda Solis: Sent to a [...] arm: papules noted; Skin: pink, warm, dry; [facility] consulted and pt states she has been prescribed cetirizine in past, but has been out for awhile. [facility] sends script to pt's pharmacy for antihistamine, hydrocortisone cream, and bacitracin. Pt is advised to use hydrocortisone and bacitracin three times a day, sparingly. Pt advised to be very careful not to get any cream or ointment in eye. Red flags discussed. Pt has no further questions. ........................... ........................... ........................... ........................... ........................... ...... [facility] Consulted: Radha Friedman ........................... ........................... ........................... ........................... ........................... ...... Disposition: Fulfilled Radha Friedman MD [address] [facility],[address], [place], [address], SHAE PLASCENCIA 10/22/2024 00:39:12 OBGyn Episode No OBEpisode recorded.
== END 2025-01-06 10:18 | disposition home or self-care (01) ==
LOC: HO.HSM 09:52
PROVIDERS: PCP Internal Medicine; Visit Provider Nurse Practitioner
DX: G43.709 Chronic migraine without aura, not intractable, without status migrainosus (principal)
CPT/HCPCS: 99214

== ENCOUNTER → 2025-01-06 09:51 | Outpatient (BNVA) | payer OTHER, SELFPAY | PROVIDERS: PCP Internal Medicine; Visit Provider Nurse Practitioner | DX: G43.709 Chronic migraine without aura, not intractable, without status migrainosus (principal) | CPT/HCPCS: 99212 ==

== ENCOUNTER 2025-02-10 10:08 | Outpatient (AMB) | payer OTHER, SELFPAY ==
[2025-02-10 10:07] VITALS: BP 128/80; PULSE 84; RESP 16; O2SAT 97; BMI 34.7
--- NOTE | 2025-02-10 10:07 | MHC.OFFVIS ---
Vital Signs 02/10/25 10:07 Height 5 ft 2 in Weight 190 lb BMI 34.7 BP 128/80 Blood Pressure Location Lt brachial Position Sitting Respiration 16 Pulse 84 Pulse Source Pulse Oximeter Pulse Oximetry (%) 97 Oxygen Delivery Method Room Air Intake Visit Reasons: ajovy injection Machine Coremaker Required: No Machine Coremaker Services: Machine Coremaker Offered & Declined Allergies No Known Allergies (No Known Allergies*) Allergy (Verified 01/06/25 09:58) HPI Comments Details: Shireen is a 64-year-old female patient with a past medical history of obesity and vitamin-D deficiency who is followed in Neurology for her chronic migraine. To review, she has tried several medications for both prevention and abortive measures for migraine. Many in the past have been effective initially and over time the effects wore off. Her migraines historically have been daily but waxing and waning in severity. They are generally accompanied by photophobia, phonophobia, nausea, dizziness, and irritability. Her primary location for pain is the occipital areas radiating abortive toward the top of the head. Often times her migraines would favor the left side. In October, we started her on Ajovy. She is here today for her 3rd Ajovy injection and a brief update. After her 1st dose of Ajovy she had a marked improvement in her headaches with very minimal breakthrough headaches. After her 2nd injection, she had less of a benefit though we did do the 2nd injection in her stomach instead of her arm. After her 3rd injection which was completed in the left upper extremity, she has had a continued improvement in headaches with a few breakthrough headaches for which she will take diclofenac with good effect. Her breakthrough migraine-type headaches are generally not lasting more than 24 hours but can be debilitating accompanied by severe light and sound sensitivity and nausea. At the time of our last visit, she had a switch over of insurance and it had originally been denied. We did use a sample inject her at that time but she has not had any gaps in her therapy. Ajovy injection by this nurse practitioner. It was given per directions on package labeling. The site that was injected was the subcutaneous area to the right upper extremity. Prior medication trials have included: Amitriptyline-through psychiatry without improvement in headache Topiramate 50 mg daily-ineffective also causing adverse effects Propranolol 20 mg twice daily-no improvement Mirtazapine -through psychiatry without improvement in headache Lamictal Gabapentin Verapamil Riboflavin Depakote 500 mg twice daily no improvement Aimovig -worked initially and became ineffective Emgality -worked initially and became ineffective Namenda-tried this through the [facility] in [place] for both headache and memory. No improvement. Maxalt-ineffective Nurtec -ineffective Diclofenac-still taking. Has taken twice daily for the past 2 weeks Prior workup: MRI of the brain without contrast 06/24/2017 performed at [facility]: Normal MRI of the brain without contrast [facility] Medical History (Updated 11/22/24 @ 15:23 by Yessi Delaney MD) Migraine Depression, major, recurrent, moderate Vitamin D deficiency Positive colorectal cancer screening using Cologuard test Fibroid Hypothyroidism Asthma Chronic GERD Headache syndrome Surgical History History of dilatation and curettage History of endometrial biopsy History of tubal ligation Family History Father CVD (cardiovascular disease) Arthritis Mother Lung cancer Brother Esophageal cancer Mental health disorder Sister Throat cancer Social History Household Members: None Housing: Apartment Alcohol intake: current Alcohol intake frequency: does not drink Patient Tobacco Use Status: Never used Tobacco e-Cigarette/Vaping Use: Never Used service: No Current occupational 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 Sexual orientation: Straight/Heterosexual Gender identity: Female Cognitive needs: No Hearing needs: No Vision needs: Yes Review of Systems Const All systems reviewed & are unremarkable except as noted in HPI and below Physical Exam Vital Signs: Last Vital Signs Pulse 84 02/10/25 10:07 Resp 16 02/10/25 10:07 BP 128/80 02/10/25 10:07 Pulse Ox 97 02/10/25 10:07 Oxygen Delivery Method Room Air 02/10/25 10:07 BMI result Body Mass Index 34.7 Const General: cooperative, healthy appearing, comfortable and no acute distress Nutritional Appearance: well nourished Orientation/consciousness: patient oriented x3 Limitations: no limitations HEENT Head: Yes normal to inspection and Yes normocephalic Neuro General: patient oriented x3 Cognition (Neuro): normal cognition Gait exam (Neuro): Normal gait present Romberg Test: Negative Psych Appearance: grossly normal Mental Status: mental status grossly normal Speech and movement: Normal speech and movement present and Clear speech present Affect: normal affect Attitude: cooperative Thought process: Normal thought process present Thought content: Normal thought content present Insight: Good insight present (Psych) Judgement: Good judgement present (Psych) Assessment & Plan Assessment & Plan (1) Chronic migraine without aura without status migrainosus, not intractable: Code(s): G43.709 - Chronic migraine without aura, not intractable, without status migrainosus Category: Medical Plan Shireen is a 64-year-old female patient with a past medical history of obesity and vitamin-D deficiency who is followed in Neurology for her chronic migraine. She has tried several means of therapy to control her migraines without much improvement aside from the Ajovy injections. She had tried in the past with some relief and we did a retrial. Insurance had recently denied her injection with the switch over from another insurance company the we are able to regain prior authorization as the Ajovy has worked very well for her. We bridged the gap of the injections last visit with a sample inject her. She has not had any gaps in her therapy. Seemingly, the injections worked better if injected into her upper extremity. We injected the right upper extremity today. Overall, she is seemingly doing much better overall on the Ajovy compared to without. We will continue this therapy for now. -Ajovy injection given today (patient is applied lot number [id number], expiration ) -can continue oral diclofenac as needed for now -follow up in 1 month Coding Level of Care Code Est Pt Level 2 (11743) Diagnoses Chronic migraine without aura without status migrainosus, not intractable G43.709
--- OUTSIDE RECORDS SUMMARY | 2025-02-10 11:21 | XMS_ITS | Clinical Summary ---
Author Organization [facility] Address [address] [place] [phone] Phone Care Team Providers Care Child And Family Services Worker Name Role Phone Mitra Brown MD Primary Care Provider [phone] Allergies No known active allergies Medications diclofenac [...] topic Medical Devices Not on file [place] [address] [address] [place] [address] [facility] [place] [address] [place] [address] [place] [address] [place] [address] [place] [address] [place] [address] [place] [address] [place] [address] [place] [address] [place] [address] [place] [address] [place] [address] [facility] [facility] Care Teams Child And Family Services Worker Relationship Specialty Start Date End Date Mitra Brown MD [address] [facility] [place] [id number] PCP - General Internal Medicine 07/02/21 Additional Source Comments The information contained in this document represents components of the legal health record. It is not the complete legal health record.[facility]
--- OUTSIDE RECORDS SUMMARY | 2025-02-10 11:21 | XMS_ITS | Clinical Summary ---
Demographics Address [address] [place] [address] Mobile Phone Home Phone Preferred Language en Marital Status Single Baptist Affiliation Unknown Race Other Race Ethnic Group or Author Organization [facility] Address [address] [place] [address] Phone Care Team Providers Care Currency Counter Name Role Phone Yessi Delaney MD Primary Care Provider [phone] Allergies No known active allergies Medications cetirizine [...] MAX 2 TABLETS PER DAY 5 Active cyclobenzaprine (FLEXERIL) 5 mg tablet TAKE ONE TABLET BY MOUTH DAILY AT BEDTIME NEEDED FOR MUSCLE SPASM 5 Active DULoxetine (CYMBALTA) [address] capsule Take 1 capsule (20 mg total) by mouth 1 (one) time each day in the morning. 4 Active fremanezumab-vf rm (Ajovy Autoinjector) 225 mg/1.5 [...] 1 (one) time each day. 5 Active Active Problems Problem Noted Date Diagnosed Date Pelvic pain 12/15/2024 Class 1 obesity 10/31/2024 Migraine headache 07/02/2021 Vitamin D deficiency 07/02/2021 Depression Allergic rhinitis Asthma GERD (gastroesophageal reflux disease) Hypothyroidism Positive colorectal cancer screening using Colog uard test Encounters Date Type Department Care Team Description 01/06/2025 Results Follow-Up Gastroenterology - 299 [facility] [address] [phone] David Nash DO 01/03/2025 10:46 AM EST Anesthesia Event [facility] [address] [place] [address] Chevy Akers DO Kapplan, Jacob A, CRNA 01/03/2025 10:09 AM EST - 01/03/2025 11:59 PM EST Hospital Encounter [facility] [address] [place] [address] David Nash DO Kapplan, Jacob A, CRNA Positive colorectal cancer screening using Cologuard test Discharge Disposition: Home or Self Care 12/16/2024 Telephone Gastroenterology - [place] 175 [facility] 175 [facility] [address] [place] [address] David Nash DO 12/05/2024 8:40 AM EDT Office Visit Breast [facility] [address] [place] [address] Rinku Desai MD Pelvic pain (Primary Dx); Endometrial polyp 11/14/2024 Telephone Gastroenterology [facility] 175 [facility] 175 [facility] [address] [place] [address] Rachael Shrestah MD from Last 3 Months Immunizations Immunization Administration Dates Next Due Tdap Tetanus diptheria acell ular pertussis (Boostrix; Adacel) 7yo and older 11/14/2008,11/14/2008 Surgical History Surgery Date Site/Laterality Comments DILATION AND CURETTAGE OF UTERUS 09/01/2016 Path: Fragments of adipose tissue. Scant endocervical epithelium. No endometrium. TUBAL LIGATION 02/13/1989 - 02/12/1990 HYSTEROSCOPY W/ POLYPECTOMY 09/13/2024 Hysteroscopy, dilation curettage, and polypectomy. Dr. Grant Villeda, [facility] Medical History Medical History Date Comments [...] 04/08/2025 10:20 AM EST Office Visit Breast [facility] [address] [place] [address] Rinku Desai MD [address] [place] [address] Health Maintenance Due Date Last Done Comments Breast Cancer Screening 1960 Drug Screen 1960 Non-Opioid Controlled Substance Agreement 1960 Pneumococcal Vaccine: 50+ Years (1 of [...] Assessment 01/03/2026 01/03/2025 Colorectal Cancer Screening: Colonoscopy 01/04/2028 01/03/2025 HIB Vaccines Aged Out No longer [...] Positive colorectal cancer screening using Cologuard test from Last 3 Months Results * COLONOSCOPY Anesthesia - MAC; [facility] ENDOSCOPY (01/03/2025 11:02 AM EST) Anatomical Region [...] pathology results. Narrative 01/03/2025 11:02 AM EST [facility] GI Patient Name: Shireen Valentin Procedure Date: 01/03/2025 10:38 AM Date of : 1960 Age: 64 Gender: Female Note Status: Finalized Attending MD: David Nash DO, [id number] Procedure Date No Time: 01/03/2025 Procedure: Colonoscopy [...] the physician, the nurse, the anesthesiologist, the butadiene converter utility operator and the instrument technician apprentice in the pre-procedure area in the endoscopy [...] retroflexion views. Procedure Code(s): --- Professional --- 24165, Colonoscopy, flexible; with removal of tumor(s), polyp(s), or other lesion(s) by snare technique 90079, 59, Colonoscopy, flexible; with biopsy, single or multiple Diagnosis Code(s): --- Professional --- D12.3, Benign neoplasm of transverse colon (hepatic flexure or splenic flexure) D12.4, Benign neoplasm of descending colon R19.5, Other fecal abnormalities CPT copyright 2020 [employer]. All rights reserved. The codes documented in this report are preliminary and upon bullet assembly press setter operator review may be revised to meet current compliance requirements. DAVID Nash DO 01/03/2025 11:02:20 AM This report has been signed electronically.David Nash DO Number of Addenda: 0 Note Initiated On: 01/03/2025 10:38 AM Scope Withdrawal Time: 0 hours 6 minutes 11 seconds Scope In: 10:51:56 AM Scope Out: 11:00:55 AM Endoscopy Department at [facility] - [address] [place] [phone] Procedure Note David Nash DO - 01/03/2025 [facility] GI Patient Name: Shireen Valentin Procedure Date: 01/03/2025 10:38 AM Date of : 1960 Age: 64 Gender: Female Note Status: Finalized Attending MD: David Nash DO, [id number] Procedure Date No Time: 01/03/2025 Procedure: Colonoscopy [...] the physician, the nurse, the anesthesiologist, the butadiene converter utility operator and thetechnician in the pre-procedure area in [...] retroflexion views. Procedure Code(s): --- Professional --- 76138, Colonoscopy, flexible; with removal of tumor(s), polyp(s), or other lesion(s) by snare technique 77480, 59, Colonoscopy, flexible; with biopsy,single or multiple Diagnosis Code(s): --- Professional --- D12.3, Benign neoplasm of transverse colon (hepatic flexure or splenic flexure) D12.4, Benign neoplasm of descending colon R19.5, Other fecal abnormalities CPT copyright 2020 [employer]. All rights reserved. The codes documented in this report are preliminary and upon bullet assembly press setter operator reviewmay be revised to meet current compliance requirements. DAVID Nash DO 01/03/2025 11:02:20 AM This report has been signed electronically.David Nash DO Number of Addenda: 0 Note Initiated On: 01/03/2025 10:38 AM Scope Withdrawal Time: 0 hours 6 minutes 11 seconds Scope In: 10:51:56 AM Scope Out: 11:00:55 AM Endoscopy Department at [facility] - [address] [place] [phone] IMPRESSION: - One 3 mm polyp in [...] - Tubular adenoma(s). 01/06/2025 10:29 AM EST [facility] at 1029 EST Gross Description [...] survive processing. av/DG 01/06/2025 10:29 AM EST [facility] Disclaimer Unless otherwise specified, all tissue is 10% NB formalin fixed and paraffin embedded. 01/06/2025 10:[address] [facility] Tissue Cecum structure / Unknown 01/03/2025 10:55 AM EST 01/03/2025 12:44 PM EST Tissue specimen (specimen) Descending colon structure / Unknown 01/03/2025 10:56 AM EST 01/03/2025 12:44 PM EST us David Nash DO LAB PATHOLOGY ORDERABLES Final R esult [facility] [address] [place] [address], from Last 3 Months Additional Health Concerns Active Problems Noted Date Diagnosed Date Autogenerated Problem 11/14/[address] [place] [id number] [facility] MEDICARE Member Subscriber Plan / Payer (Ef fective 2024-Present) Name:Shireen Valentin Relation to Subscriber:Self Name:Shireen Valentin Payer ID:[id number] Group ID:[id number] Type:Not on file Address: [place] [address] [address] [place] [address] Care Teams Currency Counter Relationship Specialty Start Date End Date Yessi Delaney MD [address] [place] [address] PCP - General 12/12/23
--- OUTSIDE RECORDS SUMMARY | 2025-02-10 11:21 | XMS_ITS | Encounter Summary ---
Demographics Address [address] [facility] [address] Mobile Phone Home Phone Preferred Language en Marital Status Single Anabaptism Affiliation Unknown Race Other Race Ethnic Group or Author Organization [facility] Address [address] [place] [address] Care Team Providers Care Grocery Clerk Checking Name Role Phone Yessi Delaney MD Primary Care Provider [phone] Encounter Details Date Type Department Care Team ([facility] st Contact Info) Description 01/06/2025 Results Follow-Up Gastroenterology - [address] [phone] Joe Nash DO [address] [address] Social History Tobacco Use Types Packs/Day Years [...] as of this encounter Progress Notes * Carisa Duvall MA - 01/07/2025 8:19 AM EST Letter mailed. Recall place. Care gaps updated. * Joe Nash DO - 01/06/2025 11:08 [...] Description 04/08/2025 10:20 AM EST Office Visit [facility] [address] [place] [address] Rinuk Desai MD [address] [place] [address] documented as of this encounter Goals Goal Patient Goal Type Associated Problems Recent Progress Patient-Stated? Author Autogenera kel Goal Care Plan Autogenerated Problem No AndraeJami documented as of this encounter Visit Diagnoses Not on filedocumented in this encounter Additional Health Concerns Active Problems Noted Date Diagnosed Date Autogenerated Problem 11/14/2024 documented as of this encounter Care Teams Grocery Clerk Checking Relationship Specialty Start Date End Date Yessi Delaney MD [address] [place] [address] PCP - General 12/12/23 documented as of this encounter
--- OUTSIDE RECORDS SUMMARY | 2025-02-10 11:21 | XMS_ITS | Patient Health Record ---
Author Organization [facility] Address [address] [facility] [place] [address] Care Team Providers Care Thread Twister Name Role Phone Yessi Delaney MD Primary Care Provider UnavailSixto Gonsales Unavailable Allergies Allergen (clinical drug ingredient) Drug/Non Drug Allergy documented on EMR Reaction Allergy Type Onset Date Status codeine Codeine dizziness and vomiting Drug Allergy Active Results Component Value Reference Range Notes X ray : Foot, left 2V Reviewed date:12/24/2024 12:22:03 PM Interpretation:See Examination above Performing Lab: Notes/Report: See Examination above Reason For Referral No Information Medications Medication SIG (Take, Route, Frequency, Duration) Notes Start Date End Date Status Levothyroxine Sodium 50 MCG 1 tablet in the morning on an empty stomach Orally Once a day Active Night Splint AFO - L1930 1 wear at rest; Duration: 30 days Active Medrol vilma 4mg as directed orally a s directed; Duration: 6 days 12/24/2024 Active Zolpidem Tartrate 10 MG 1 tablet at bedt jennifer as needed Orally Once a day Active Citalopram Hydrobromide 20 MG 1 tablet Orally Once a day Active clonazePAM 0.5 MG 2 tablet Orally Once a day PRN Active Ajovy 225 MG/1.5ML as directed Subcutan eous Every month Active Diclofenac Potassium 50 MG 1 tablet with food or milk as needed Orally Twice a day Active Omeprazole 40 MG 1 capsule 1/2 to 1 h our before morning meal Orally Once a day Active Rosuvastatin Calcium 20 MG 1 tablet Oral ly Once a day Active Immunizations Vaccine Route Administration Date Status Comme nts Influenza Unknown 12/24/2024 Refused Social History Tobacco Use: Social History Observation Description Date Details (start date - stop date) Never Smoker NA - NA Tobacco use other than smoking: Question Answer Notes Are you an other tobacco user? No Tobacco Control (Standard) Question Answer Notes Tobacco use: Nonsmoker Additional Findings: Tobacco non-user Current no nsmoker AUDIT-C (Standard) Question Answer Notes Did you have a drink containing alcohol in the p ast year? 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 Problem Plantar fasciitis of left foot (10474844670443650) Plantar fasciitis of left foot (M72.2) Active confirmed Problem Interstitial myositis (22588183) Interstitial myositis of left foot (M60.172) Active confirmed Vital Signs Blood pressure diastolic 75 mm Hg 02/04/2025 Height 5ft 2in in 02/04/2025 Blood pressure systolic 120 mm Hg 02/04/2025 Weight 192 lbs 02/04/2025 BMI 35.11 kg/m2 02/04/2025 Encounters Encounter Location Date Provider Diagnosis [address] [address] 12/24/2024 Sixto Renteria Plantar fasciitis of left foot M72.2 ; Pain of left heel M79.672 ; Achilles tendinitis of left lower extremity M76.62 ; Hx of fall Z91.81 ; Calcaneal spur, left foot M77.32 ; Karthikeyan's deformity of left heel M92.62 ; Exostosis of left posterior calcaneus M77.32 ; Short Achilles tendon (acquired), left ankle M67.02 and Bursitis of left foot M77.[address] [address] 02/04/2025 Sixto Renteria Plantar fasciitis of left foot M72.2 ; Achilles tendinitis of left lower extremity M76.62 and Interstitial myositis of left foot M60.[address] [address] 12/24/2024 Sixto Renteria [facility] [address] [place] [address] 12/24/2024 Sixto Renteria [facility] [address] [place] [address] 12/25/2024 Sixto Renteria Assessments Encounter Date Diagnosis (ICD Code) Assessment Notes Treatment Notes Treatment Clinical Notes Section Notes 12/24/2024 Pain of left heel (ICD-10 - M79.672) 12/24/2024 Plantar fasciitis of left foot (ICD-10 - M72.2) Patient Educated with: HEEL CORD STRETCHES.pdf (HEEL CORD STRETCHES.pdf) Patient Educated with: RICE THERAPY.pdf (RICE THERAPY.pdf) 02/04/2025 Achilles tendinitis of left lower extremity (ICD-10 - M76.62) 02/04/2025 Plantar fasciitis of left foot (ICD-10 - M72.2) 02/04/2025 Interstitial myositis of left foot (ICD-10 - M60.172) 12/24/2024 Achilles tendinitis of left lower extremity (ICD-10 - M76.62) 12/24/2024 Hx of fall (ICD-10 - Z91.81) 12/24/2024 Calcaneal spur, left foot (ICD-10 - M77.32) 12/24/2024 Karthikeyan's deformity of left heel (ICD-10 - M92.62) 12/24/2024 Exostosis of left posterior calcaneus (ICD-10 - M77.32) 12/24/2024 Short Achilles tendon (acquired), left ankle (ICD-10 - M67.02) 12/24/2024 Bursitis of left foot (ICD-10 - M77.52) Plan Of Treatment No Information Insurance Providers Payer Name Payer Address Payer Phone Subscriber Number Group Number Insured Name Patient Relationship to Insured Coverage Start Date Coverage End Date [facility] Adv [address] [place] [address] [id number] Shireen Valentin Self - patient is the insured Medical (General) History Medical History History ICD Code Anxiety Arthritis Back,Hip,and Knee pain CAD (Cholesterol) Headaches/Migraines Sciatica thyroid
--- OUTSIDE RECORDS SUMMARY | 2025-02-10 11:21 | XMS_ITS | Encounter Summary ---
Demographics Address [address] [place] [address] Mobile Phone Home Phone Preferred Language en Marital Status Single Congregational Affiliation Unknown Race Other Race Ethnic Group or Author Organization [facility] Address [address] [place] [address] Care Team Providers Care Steam Shovel Operating Engineer Name Role Phone Yessi Delaney MD Primary Care Provider [phone] Encounter Details Date Type Department Care Team (Latest Contact Info) Description 11/04/2024 Lab Requisition [facility] Lab 299 [facility] [place] [phone] Rinku Desai MD [address] [place] [address] Postmenopausal bleeding Social History Tobacco Use Types [...] AM EST Office Visit [facility] [address] [place] [phone] Rinku Desai MD [address] [place] [address] documented as of this encounter Procedures Procedure Name Priority Date/Time Associated Diagnosis Comments AP OUTSIDE CONSULT Routine 11/04/2024 Postmenopausal bleeding documented in this encounter Results * Anatomic pathology outside consult (11/04/2024) Final Diagnosis A. Endometrial polyp (Z61-9917-W, 09/13/24): Benign endometrial polyp with mucinous metaplasia without atypical features Inactive endometrium with underlying myometrium No neoplasm or carcinoma identified B. Endometrial curettings (B36-0422-V, 09/13/24): Inactive endometrium No endometrial hyperplasia or neoplasm identified 11/12/2024 1:50 PM EDT [facility] at 1350 EDT Comment A. Endometrial polyps are hyperplastic by nature and thus non-atypical endometrial hyperplasia/non-e ndometrioid intraepithelial neoplasm (EIN) is an expected finding. No changes to suggest atypical endometrial hyperplasia/EIN are identified. 11/12/2024 1:50 PM EDT [facility] Clinical Information Postmenopausal bleeding Endometrial polyp Per Dr. Grant Villeda's operative note from 09/13/24, only a single endometrial polyp was identified 11/12/2024 1:50 PM EDT [facility] Gross Description A. Endometrium, Polyp: Received from [facility], Department of Pathology are 2 slides (A1-level 1, A1-level 2) for consultative opinion. B. Endometrium, Curretage: Received from [facility], Department of Pathology is 1 slide (B1-level 1-2) for consultative opinion. 11/12/2024 1:50 PM EDT [facility] Disclaimer Unless otherwise specified, all tissue is 10% NB formalin fixed and paraffin embedded. 11/12/2024 1:50 PM EDT [facility] Tissue Endometrial structure / Unknown 11/04/2024 11/04/2024 2:58 PM EDT Tissue specimen (specimen) Endometrial structure / Unknown 11/04/2024 11/04/2024 2:58 PM EDT us Rinku Desai MD LAB PATHOLOGY ORDERABLES Final R esult [facility] [place] [address], documented in this encounter Visit Diagnoses Diagnosis Postmenopausal bleeding documented in this encounter Care Teams Steam Shovel Operating Engineer Relationship Specialty Start Date End Date Yessi Delaney MD [address] [place] [address] PCP - General 12/12/23 documented as of this encounter
== END 2025-02-10 10:57 | disposition home or self-care (01) ==
LOC: HO.HSM 10:09
PROVIDERS: PCP Internal Medicine; Visit Provider Nurse Practitioner
DX: G43.709 Chronic migraine without aura, not intractable, without status migrainosus (principal)
CPT/HCPCS: 99212

== ENCOUNTER → 2025-02-10 10:08 | Outpatient (BNVA) | payer OTHER, SELFPAY | PROVIDERS: PCP Internal Medicine; Visit Provider Nurse Practitioner | DX: G43.709 Chronic migraine without aura, not intractable, without status migrainosus (principal) | CPT/HCPCS: 99212 ==